=== PATIENT | female | born 1975 | race African-American/Black ===

== ENCOUNTER 2017-11-13 16:59 | Emergency (ER) | payer MEDICAID, SELFPAY ==
[2017-11-13 17:00] VITALS: BP 128/73; PULSE 107; RESP 18; TEMP 36.6; O2SAT 100; BMI 23.9
--- NOTE | 2017-11-13 18:38 | RAD_ITS ---
STUDY: X-RAY - ACUTE ABDOMINAL SERIES REASON FOR EXAM: Female, 42 years old. Hemoptysis last night and this morning. TECHNIQUE: Single view of the chest. Supine, and erect view(s) of the abdomen were obtained. COMPARISON: CT of the abdomen and pelvis dated November 05, 2014. FINDINGS: The lungs are clear and hyperexpanded. Normal size heart. Normal mediastinum and [place]. Normal visualized pulmonary arteries. There is atherosclerotic tortuosity of the aortic arch and descending thoracic aorta. There is a large amount of bowel gas. There is no evidence for dilated bowel. There is no obvious visceromegaly, or mass. A pelvic calcifications are probably phleboliths. There is mild curvature of the thoracic and lumbar spine with convexity towards the right. RAD/Acute Abdomen Inc Chest IMPRESSION: No radiographic evidence of acute cardiopulmonary or intra-abdominal disease. Electronically Signed: Dulce Shell MD at 19:49 EST , Service support ,
--- NOTE | 2017-11-13 18:39 | ED.VISSUMM ---
- ER Visit Summary Date of Service: 11/13/17 Chief Complaint: Vomiting blood History of Present Illness: The patient is a 42 F who is a daily drinker who presents for vomiting blood. Patient states that last night she began vomiting, and initially it was bright red. She vomited multiple times during the night and the vomit became more coffee-ground in appearance. She last vomited 12 hours ago. She endorses diffuse upper back pain. She currently denies any nausea, abdominal pain, fever, acute diarrhea, blood in her stool or any other complaints. She states she has normal daily loose stool in the morning. Denies any medical history. Bilateral tubal ligation. She drinks 3-4 large volume beers daily. Last was just prior to arrival. Physical Examination: Vital signs: afebrile, hemodynamically stable, no hypoxia on room air General: well nourished, well developed, in no distress, odor of alcohol on breath Skin: warm, dry, no rash, no pallor HEENT: normocephalic and atraumatic; PERRL, EOMI, moist mucous membranes no blood noted in the oropharynx, no oropharyngeal lesions Cardiovascular: Tachycardic rate and rhythm without murmurs, no peripheral edema, 2+ pulses all distal extremities Respiratory: No increased work of breathing, lungs are clear to auscultation bilaterally, no rales, rhonchi or wheezing Abdominal: Abdomen is soft, nontender with normoactive bowel sounds, no guarding or rebound, no masses MSK: Moves all extremities, no deformities, normal strength Neuro: Awake and alert, oriented ?4. No facial droop, sensation and motor function intact and symmetric Test Results: Abnormal Lab Results 11/13/17 11/13/17 11/13/17 18:50 18:55 18:55 WBC 4.6 RBC 4.14 L Hgb 13.5 Hct 40.3 MCV 97.3 MCH 32.6 H MCHC 33.5 RDW 12.9 RDW Differential 45.8 H Plt Count 240 MPV 9.8 Immature Gran % (Auto) 0.000 Neut % (Auto) 31.5 L Lymph % (Auto) 51.0 H [place] % (Auto) 10.8 H Eos % (Auto) 5.4 H Baso % (Auto) 1.3 H Absolute Neuts (auto) 1.5 L Absolute Lymphs (auto) 2.35 Total Counted Not Reportable Sodium 142 Potassium 4.0 Chloride 107 Carbon Dioxide 25.0 Anion Gap 10 BUN 3 L Creatinine 0.51 L Estim Creat Clear Calc 153.24 Est GFR (MDRD) Af Amer 171 Est GFR (MDRD) Non-Af 141 BUN/Creatinine Ratio 5.9 L Glucose 81 Calcium 8.5 Total Bilirubin 0.10 L AST 30 ALT 22 Alkaline Phosphatase 91 Total Protein 7.5 Albumin 3.2 Globulin 4.3 H Albumin/Globulin Ratio 0.7 L Lipase 153 Urine Color Urine Clarity Urine pH Ur Specific [place] Urine Protein Urine Glucose (UA) Urine Ketones Urine Occult Blood Urine Nitrite Urine Bilirubin Urine Urobilinogen Ur Leukocyte Esterase Urine RBC Urine WBC Ur Squamous Epith Cells Urine Bacteria Urine Mucus Urine Test Negative Blood Type Antibody Screen 11/13/17 11/13/17 18:55 18:55 WBC RBC Hgb Hct MCV MCH MCHC RDW RDW Differential Plt Count MPV Immature Gran % (Auto) Neut % (Auto) Lymph % (Auto) [place] % (Auto) Eos % (Auto) Baso % (Auto) Absolute Neuts (auto) Absolute Lymphs (auto) Total Counted Sodium Potassium Chloride Carbon Dioxide Anion Gap BUN Creatinine Estim Creat Clear Calc Est GFR (MDRD) Af Amer Est GFR (MDRD) Non-Af BUN/Creatinine Ratio Glucose Calcium Total Bilirubin AST ALT Alkaline Phosphatase Total Protein Albumin Globulin Albumin/Globulin Ratio Lipase Urine Color Yellow Urine Clarity Clear Urine pH 6.0 Ur Specific [place] 1.005 Urine Protein Negative Urine Glucose (UA) Normal Urine Ketones Negative Urine Occult Blood Negative Urine Nitrite Negative Urine Bilirubin Negative Urine Urobilinogen Normal Ur Leukocyte Esterase 500 H Urine RBC 0-5 SEEN Urine WBC 0 SEEN Ur Squamous Epith Cells 0-5 SEEN Urine Bacteria 0 SEEN Urine Mucus 0 SEEN Urine Test Blood Type O POSITIVE Antibody Screen NEGATIVE Emergency Department Course and Treatment: Patient presents for bloody emesis, initially bright red but then becoming coffee ground without any emesis in the last 12 hours. Because patient does drink heavily, this is concerning for possible esophageal varices versus a Deja-Nino tear. Patient has no chest pain that would be concerning for Borhaave syndrome. Workup was performed, and patient had a normal hemoglobin. No leukocytosis. Electrolytes, hepatic function and renal function were within normal limits. negative. Patient was given IV fluids and Protonix upon presentation. Had no episodes of emesis in the emergency department and no nausea. An NG tube was attempted to evaluate for any possible blood remaining in the stomach that might indicate active bleeding. Patient did not tolerate the procedure well and did not wish any further continuation of it. She stated she would return if she had any further bleeding or bloody vomit. She was given Chloraseptic [place] for throat discomfort after the attempted NG tube placement. Patient was discharged home with stable vital signs and no evidence of further hematemesis. Treatment Plan: [] Disposition: [] Impression: Hematemesis, resolved This note was generated with [employer] dictation software. It may contain incorrect words, spelling, and punctuation that were not noted in review of the chart prior to signing ED Disposition - Plan for ED Patient: Disposition: Home or Assisted Living Chief Complaint: GI Bleed Instructions: ED Bleed UGI Stable Prescriptions: Pantoprazole Sodium [Protonix] 40 mg PO DAILY #15 tab Ondansetron HCl [Zofran] 4 mg PO TID PRN #10 tab PRN Reason: Nausea Referrals: Ninoska Walsh MD [Primary Care Provider] - 1-2 Days if not improving Additional Instructions: If you have any further vomiting of blood, come back to the emergency department immediately for another evaluation. Please use the medications as prescribed to help calm your stomach and prevent further bleeding and vomiting. Please do not drink alcohol, as this will make your stomach more irritated and likely to bleed. Please see your doctor within 1-2 days for another evaluation and to discuss treatment of stomach irritation.
[2017-11-13] MEDS: Ondansetron 4 MG/2 ML Vial IV (19:01)
[2017-11-13] MEDS: 0.9% Normal Saline 1,000 ML 1000 ML IV (19:01)
[2017-11-13 19:02] LABS: Bacteria 0 SEEN /hpf (None Seen); Mucous, Urine 0 SEEN /hpf (<or=2+); White Blood Cells 0 SEEN /hpf (0-5)
[2017-11-13 19:04] LABS: Color, Urine Yellow (Yellow); Glucose, Dipstick Normal (Normal); Ketone-Dipstick Negative (Negative); Leukocyte Esterase-Dipstick 500 /ul (Negative); Nitrite-Dipstick Negative (Negative); Occult Blood-Urine Negative /ul (Negative); Protein-Dipstick Negative (Negative); Specific Gravity, Urine 1.005 (1.002-1.030); Urine Bilirubin Dipstick Negative (Negative); Urine Clarity Clear (Clear); Urine Urobilinogen Normal (Normal)
[2017-11-13 19:06] LABS: Absolute Lymphocyte Count 2.35 X10^3/ul (0.83-4.51); Absolute Neutrophil Count 1.5 X10^3/uL (2.0-7.7); Basophil# 0.06 X10^3/uL; Basophil% 1.3 % (0-1); Eosinophil# 0.25 X10^3/uL; Eosinophils% 5.4 % (0-5); Hematocrit 40.3 % (37-47); Hemoglobin 13.5 g/dl (12.0-15.0); Lymphocyte # 2.35 X10^3/ul (4.0); Mean Corp Hgb Conc 33.5 g/gl (32-36); Mean Corpuscular Hgb 32.6 pg (27.0-32.0); Mean Corpuscular Volume 97.3 fL (81-99); Mean Platelet Vol. 9.8 fl (6.2-12.0); Monocyte% 10.8 % (0-10); Neutrophil # 1.45 X10^3/uL (2.7-7.7); Neutrophil % 31.5 % (47-70); POSITIVE COUNT NO; POSITIVE DIFFERENTIAL NO; POSITIVE MORPHOLOGY NO; Platelet Count 240 K/mm3 (150-450); RBC Distribution Width CV 12.9 % (11.6-14.6); RBC Distribution Width SD 45.8 fl (35.1-43.9); Red Blood Count 4.14 M/mm3 (4.2-5.4); White Blood Count 4.6 K/mm3 (4.4-11.0)
[2017-11-13 19:12] LABS: Internal QC Validated? YES +Cl - CLEAR BKGD
[2017-11-13 19:14] LABS: Pregnancy, Urine Negative Negative
[2017-11-13 19:16] LABS: Red Blood Cells-Urine 0-5 SEEN /hpf (0-5); Squamous Epithelial Cells - UA 0-5 SEEN /hpf (5-10)
[2017-11-13 19:22] LABS: ALB/GLOB Ratio 0.7 RATIO (0.9-2.4); AST(SGOT) 30 U/L (15-37); Alanine Aminotransfer ALT/SGPT 22 U/L (13-56); Albumin, Serum 3.2 g/dL (3.2-5.0); Alkaline Phosphatase 91 U/L (45-117); Anion Gap 10 (5-15); BUN 3 mg/dL (7-18); BUN/Creat Ratio 5.9 RATIO (10-20); Calcium,Total 8.5 mg/dL (8.5-10.1); Chloride 107 mmol/L (98-107); Creatinine, Serum 0.51 mg/dL (0.55-1.02); EST Glomerular Filtration Rate 141 mL/min (>60); Est Glom Filt Rate - Afr Amer 171 mL/min (>60); Estimated Creatinine Clearance 153.24 ml/min; Globulin 4.3 g/dL (2.2-4.2); Glucose 81 mg/dL (70-110); Lipase 153 U/L (73-393); Protein, Total 7.5 g/dL (6.4-8.2); Sodium Level 142 mmol/L (136-145)
[2017-11-13 21:17] VITALS: PULSE 78; RESP 17; O2SAT 98
--- NOTE | 2017-11-13 21:35 | ED.DEP ---
ED Disposition - Plan for ED Patient: Disposition: Home or Assisted Living Chief Complaint: GI Bleed Instructions: ED Bleed UGI Stable Prescriptions: Pantoprazole Sodium [Protonix] 40 mg PO DAILY #15 tab Ondansetron HCl [Zofran] 4 mg PO TID PRN #10 tab PRN Reason: Nausea Referrals: Ninoska Walsh MD [Primary Care Provider] - 1-2 Days if not improving Additional Instructions: If you have any further vomiting of blood, come back to the emergency department immediately for another evaluation. Please use the medications as prescribed to help calm your stomach and prevent further bleeding and vomiting. Please do not drink alcohol, as this will make your stomach more irritated and likely to bleed. Please see your doctor within 1-2 days for another evaluation and to discuss treatment of stomach irritation.
--- NOTE | 2017-11-13 22:05 | NURSING ---
NG WAS UNSUCCESSFUL AND WENT INTO THE PT LUNG. PT REFUSED FOR US TO TRY AGAIN PT WANTED TO BE SENT HOME. GAVE RX AND WORK NOTE FOR TODAY AND TOMORROW. UNDERSTANDS D/C INSTRUCTIONS AND FOLLOWING UP WITH DOCTOR.
[2017-11-13 22:06] VITALS: BP 126/87; PULSE 76; RESP 16; O2SAT 98
== END 2017-11-13 22:06 | disposition home or self-care (01) ==
PROVIDERS: Emergency Provider Emergency Medicine; Family Provider Internal Medicine; PCP Internal Medicine
DX: K92.0 Hematemesis (principal); F10.10 Alcohol abuse, uncomplicated; Z72.0 Tobacco use
CPT/HCPCS: 74022; 80053; 81001; 81025; 83690; 85025; 86850; 86900; 96365; 96366; 96375; 99283; J7030; A4216; J2405

== ENCOUNTER 2018-01-10 18:54 | Emergency (ER) | payer MEDICAID, SELFPAY ==
[2018-01-10 18:55] VITALS: BP 135/82; PULSE 98; RESP 16; TEMP 36.8; O2SAT 98; BMI 21.8
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
[2018-01-10 19:38] VITALS: RESP 18
--- NOTE | 2018-01-10 19:39 | NURSING ---
PATIENT REQUESTED AN EYE PATCH TO PROTECT HER EYE. EYE PATCH GIVEN AND APPLIED TO HER LEFT EYE BY THIS NURSE.
== END 2018-01-10 19:38 | disposition home or self-care (01) ==
PROVIDERS: Emergency Provider Emergency Medicine; Family Provider Internal Medicine; PCP Internal Medicine
DX: H11.32 Conjunctival hemorrhage, left eye (principal); Z72.0 Tobacco use
CPT/HCPCS: 99283

== ENCOUNTER 2018-04-29 17:45 | Emergency (ER) | payer MEDICAID, SELFPAY ==
[2018-04-29 17:46] VITALS: BP 127/89; PULSE 93; RESP 16; TEMP 36.7; O2SAT 98; BMI 21.9
--- NOTE | 2018-04-29 18:00 | ED.VISSUMM ---
- ER Visit Summary Date of Service: 04/29/18 Chief Complaint: Rash History of Present Illness: The patient is a 43 F patient has had a rash for 2 days. She states it itches. Spreading upper extremities. She has been using medicated lotion without any relief. She does admit to some alcohol today. Physical Examination: Vitals are reviewed. Skin exam reveals diffuse maculopapular rash. No petechia or purpura. She is intoxicated but answers all questions Test Results: None performed Emergency Department Course and Treatment: Patient will be treated with Kenalog here. I will give her hydrocortisone cream at home. She can use Benadryl for the itching Treatment Plan: [] Disposition: Discharge Impression: Dermatitis This note was generated with [employer] dictation software. It may contain incorrect words, spelling, and punctuation that were not noted in review of the chart prior to signing ED Disposition - Plan for ED Patient: Chief Complaint: Rash Referrals: Ninoska Walsh MD [Primary Care Provider] -
[2018-04-29] MEDS: Triamcinolone Acetonide 40 MG/ML Vial IM (18:03)
--- NOTE | 2018-04-29 18:03 | ED.DCSUM_ITS ---
- ER Visit Summary Date of Service: 04/29/18 Chief Complaint: Rash History of Present Illness: The patient is a 43 F patient has had a rash for 2 days. She states it itches. Spreading upper extremities. She has been using medicated lotion without any relief. She does admit to some alcohol today. Physical Examination: Vitals are reviewed. Skin exam reveals diffuse maculopapular rash. No petechia or purpura. She is intoxicated but answers all questions Test Results: None performed Emergency Department Course and Treatment: Patient will be treated with Kenalog here. I will give her hydrocortisone cream at home. She can use Benadryl for the itching Treatment Plan: [] Disposition: Discharge Impression: Dermatitis This note was generated with [employer] dictation software. It may contain incorrect words, spelling, and punctuation that were not noted in review of the chart prior to signing ED Disposition - Plan for ED Patient: Chief Complaint: Rash Referrals: Ninoska Walsh MD [Primary Care Provider] -
--- NOTE | 2018-04-29 18:03 | ED.DEP ---
ED Disposition - Plan for ED Patient: Disposition: Home or Assisted Living Chief Complaint: Rash Prescriptions: Hydrocortisone 1% Crm [Hytone] 1 applic TOPICAL BID #1 tube Referrals: Ninoska Walsh MD [Primary Care Provider] -
== END 2018-04-29 18:22 | disposition home or self-care (01) ==
LOC: ED 18:21
PROVIDERS: Emergency Provider Emergency Medicine; Family Provider Internal Medicine; PCP Internal Medicine
DX: L30.9 Dermatitis, unspecified (principal); Z72.0 Tobacco use
CPT/HCPCS: 96372; 99284

== ENCOUNTER 2018-06-01 16:55 | Observation (INO) | payer MEDICAID, SELFPAY ==
[2018-06-01 16:56] VITALS: BP 122/88; PULSE 102; RESP 14; TEMP 36.3; O2SAT 98; BMI 24.1
--- NOTE | 2018-06-01 17:10 | ED.RN ---
PT REPORTS LAST DRINK WAS 1400, I HAD 3 TALL BOYS. NOW I AM FEELING JITTERY AND TREMORING. PT HAS BEEN DOING THIS SINCE SHE WAS 20 YRS OLD. REPORTS THROBBING VERAS AND NAUSEA.
[2018-06-01 18:10] LABS: Absolute Lymphocyte Count 1.13 X10^3/ul (0.83-4.51); Absolute Neutrophil Count 3.5 X10^3/uL (2.0-7.7); Basophil# 0.04 X10^3/uL; Basophil% 0.8 % (0-1); Eosinophil# 0.07 X10^3/uL; Eosinophils% 1.4 % (0-5); Hematocrit 39.5 % (37-47); Hemoglobin 13.2 g/dl (12.0-15.0); Lymphocyte # 1.13 X10^3/ul (4.0); Lymphocyte % 22.2 % (19-41); Mean Corp Hgb Conc 33.4 g/gl (32-36); Mean Corpuscular Hgb 32.2 pg (27.0-32.0); Mean Corpuscular Volume 96.3 fL (81-99); Mean Platelet Vol. 9.8 fl (6.2-12.0); Monocyte# 0.38 X10^3/uL; Monocyte% 7.5 % (0-10); Neutrophil # 3.46 X10^3/uL (2.7-7.7); Neutrophil % 68.1 % (47-70); Platelet Count 210 K/mm3 (150-450); RBC Distribution Width CV 13.7 % (11.6-14.6); White Blood Count 5.1 K/mm3 (4.4-11.0)
[2018-06-01 18:15] LABS: POSITIVE COUNT NO; POSITIVE DIFFERENTIAL NO; POSITIVE MORPHOLOGY NO
[2018-06-01 18:16] VITALS: BP 117/82; PULSE 92; RESP 18; O2SAT 99
--- NOTE | 2018-06-01 18:17 | ED.RN ---
PT REPORTS DR. MARYJO VERAS INFORMED AWAITING FURTHER ORDERS.
[2018-06-01 18:30] LABS: ALB/GLOB Ratio 0.7 RATIO (0.9-2.4); AST(SGOT) 41 U/L (15-37); Alanine Aminotransfer ALT/SGPT 25 U/L (13-56); Albumin, Serum 3.2 g/dL (3.2-5.0); Alkaline Phosphatase 125 U/L (45-117); Amphetamine Urine VISTA NEGATIVE (<1000 ng/mL); Anion Gap 12 (5-15); BUN 2 mg/dL (7-18); Barbiturate Urine VISTA NEGATIVE (< 200 ng/mL); Benzodiazepine Urine VISTA NEGATIVE (< 200 ng/mL); Chloride 102 mmol/L (98-107); Cocaine Urine VISTA NEGATIVE (< 300 ng/mL); Creatinine, Serum 0.51 mg/dL (0.55-1.02); EST Glomerular Filtration Rate 143 mL/min (>60); Ecstacy Urine VISTA NEGATIVE (< 500 ng/mL); Est Glom Filt Rate - Afr Amer 172 mL/min (>60); Estimated Creatinine Clearance 151.71 ml/min; Globulin 4.9 g/dL (2.2-4.2); Glucose 74 mg/dL (74-106); Methadone Urine VISTA NEGATIVE (< 300 ng/mL); PCP Urine VISTA NEGATIVE (< 25 ng/mL); Potassium 3.8 mmol/L (3.5-5.1); Protein, Total 8.1 g/dL (6.4-8.2); Sodium Level 136 mmol/L (136-145); THC Urine VISTA NEGATIVE (< 50 ng/mL); Vista UDS pH Range 6
[2018-06-01] MEDS: Acetaminophen 500 MG Tablet 1000 MG PO (18:35)
[2018-06-01 18:38] LABS: Pregnancy, Serum, hCG Quali. NEGATIVE Negative (0-9 Nonpreg)
--- NOTE | 2018-06-01 19:03 | PCM.HP.STD ---
Problem List (1) Polysubstance dependence Status: Acute (2) Alcohol withdrawal Status: Acute History of Present Illness Date of Admission: 06/01/18 Chief Complaint: Alcohol withdrawal ?1 day The patient is a 43 year old F with a significant history of bipolar disorder and alcoholism and tobacco abuse who presents with a 1 day history of alcohol withdrawal symptoms of shakiness, headache, auditory hallucination, cold sweats, feeling of heart racing, and photophobia. At emergency department her CIWA score was 21. She drinks 3-4 of 24 hours cans of beer per day. She denies any homicidal or suicidal intent. Patient started drinking at age 20 and her drinking habits are worsened when she was 27 years old. Past Medical History Past Medical History (Chronic Problems): Chronic Problems Bipolar disorder (Chronic) Allergies Penicillins Allergy (Verified 06/01/18 16:59) Hives Home Medications: Ambulatory Orders Medication Instructions Recorded NK [NK] 06/01/18 Surgical History: appendectomy, - - Tonsillectomy, 2 knee surgeries on the left; and one knee surgery on the right Psychiatric History: Bipolar Lives: With Family Smoking Status: Current every day smoker Tobacco Use: Non-smoker Alcohol: Heavy Drugs: None Review of Systems Constitutional: Denies: Chills, Fever, Weight Change HEENT: Reports: Head Aches. Denies: Sinus Congestion, Sinus Drainage Cardiovascular: Reports: Palpitations. Denies: Chest Pain Respiratory: Denies: Cough, Shortness of breath at rest, Sputum production Gastrointestinal: Denies: Abdominal Pain, Vomiting Genitourinary: Denies: Dysuria Musculoskeletal: Denies: Joint Pain, Joint Tenderness Skin: Denies: Rash, Wounds Neurological: Denies: Numbness, Tingling, Focal weakness Psychiatric: Denies: Homicidal Ideations, Suicidal Ideations Hematologic/ Lymphatic: Denies: Easy Bruising, Easy Bleeding VTE Information - Inpt Only VTE Present on Admission: No VTE Mechan Device Prophylaxis: None VTE Pharm Prophylaxis ordered?: No Reason prophylaxis not ordered:: Treatment Not Indicated - Low risk Patient Problems: Active and Suspected Problems Polysubstance dependence (Acute) Alcohol withdrawal (Acute) - Physical Exam General: Alert, Oriented x3, Cooperative HEENT: Atraumatic, PERRLA, EOMI, Normocephalic Neck: Supple, No JVD, Negative Carotid Bruits Lungs: Clear to auscultation, Normal air movement Cardiovascular: Regular rate, No murmurs Abdomen: Bowel Sounds Present, Soft, Non Tender Extremities: No edema, Capillary Refill Less than 3 Seconds Skin: No rashes, No breakdown Musculoskeletal: No Tenderness to Palpation of Joints or Extremities Neurological: Cranial nerves II-XII grossly intact Psych/Mental Status: Normal Affect, Appropriate Vital Signs Temp Pulse Resp BP Pulse Ox 97.4 F L 92 18 117/82 H 99 06/01/18 16:56 06/01/18 18:16 06/01/18 18:16 06/01/18 18:16 06/01/18 18:16 Oxygen Delivery Method Room Air Weight: 74.1 kg Body Mass Index (BMI) 24.1 Laboratory Tests Past 24 Hrs 06/01/18 06/01/18 06/01/18 17:55 17:55 17:55 WBC 5.1 RBC 4.10 L Hgb 13.2 Hct 39.5 MCV 96.3 MCH 32.2 H MCHC 33.4 RDW 13.7 RDW Differential 48.0 H Plt Count 210 MPV 9.8 Immature Gran % (Auto) 0.000 Neut % (Auto) 68.1 Lymph % (Auto) 22.2 [place] % (Auto) 7.5 Eos % (Auto) 1.4 Baso % (Auto) 0.8 Absolute Neuts (auto) 3.5 Absolute Lymphs (auto) 1.13 Total Counted Not Reportable Sodium 136 Potassium 3.8 Chloride 102 Carbon Dioxide 22.0 Anion Gap 12 BUN 2 L Creatinine 0.51 L Estim Creat Clear Calc 151.71 Est GFR (MDRD) Af Amer 172 Est GFR (MDRD) Non-Af 143 BUN/Creatinine Ratio 4.0 L Glucose 74 Calcium 9.0 Total Bilirubin 0.30 AST 41 H ALT 25 Alkaline Phosphatase 125 H Total Protein 8.1 Albumin 3.2 Globulin 4.9 H Albumin/Globulin Ratio 0.7 L Serum , Qual Urine Opiates Screen Urine Methadone Screen Ur Barbiturates Screen Ur Phencyclidine Scrn Ur Amphetamines Screen U Methamphetamin-MDMA U Benzodiazepines Scrn Urine Cocaine Screen U Cannabinoids Screen Ur Drug Screen Comment Ethyl Alcohol 131.0 06/01/18 06/01/18 17:55 17:55 WBC RBC Hgb Hct MCV MCH MCHC RDW RDW Differential Plt Count MPV Immature Gran % (Auto) Neut % (Auto) Lymph % (Auto) [place] % (Auto) Eos % (Auto) Baso % (Auto) Absolute Neuts (auto) Absolute Lymphs (auto) Total Counted Sodium Potassium Chloride Carbon Dioxide Anion Gap BUN Creatinine Estim Creat Clear Calc Est GFR (MDRD) Af Amer Est GFR (MDRD) Non-Af BUN/Creatinine Ratio Glucose Calcium Total Bilirubin AST ALT Alkaline Phosphatase Total Protein Albumin Globulin Albumin/Globulin Ratio Serum , Qual NEGATIVE Urine Opiates Screen NEGATIVE Urine Methadone Screen NEGATIVE Ur Barbiturates Screen NEGATIVE Ur Phencyclidine Scrn NEGATIVE Ur Amphetamines Screen NEGATIVE U Methamphetamin-MDMA NEGATIVE U Benzodiazepines Scrn NEGATIVE Urine Cocaine Screen NEGATIVE U Cannabinoids Screen NEGATIVE Ur Drug Screen Comment Ethyl Alcohol Assessment/Plan All Active Problems Polysubstance dependence (Acute) Alcohol withdrawal (Acute) The patient is a 43 year old F with a significant history of bipolar disorder and alcoholism and tobacco abuse who presents with alcohol withdrawal. Alcohol withdrawal New Vision protocol with Librium taper Multivitamins, thiamine, methocarbamol and hydroxyzine ordered. As needed Ativan for seizures. Counseled Tobacco abuse nicotine patch ordered Bipolar Not on any home medication Clinical monitoring. DVT prophylaxis Subcutaneous heparin. Code Visit Inpatient E&M: 66712 Init Hosp L2
--- NOTE | 2018-06-01 19:22 | ED.VISSUMM ---
- ER Visit Summary Date of Service: 06/01/18 Chief Complaint: [Request for alcohol detox] History of Present Illness: The patient is a 43 F [presents the emergency department with complaint of requesting alcohol detox. Patient states that she last drank alcohol between 10 AM and 2 PM and had 3 tall beers. Patient states that normally she mostly drinks beer. Patient feeling jittery and complains of a headache. Patient feels sweaty at times. She denies any chest pain or shortness of breath. Patient does admit to some photophobia and some auditory hallucinations at times.] Physical Examination: [HEENT-PERRLA, EOMI. Cranial nerves II through XII grossly intact. TMs clear. Mucous membranes moist. No adenopathy. Cardiovascular-regular rate and rhythm without murmur or ectopy Lungs-clear to auscultation, chest wall stable without crepitus or subcu emphysema Abdomen-normoactive bowel sounds, soft, nontender, no rebound or rigidity, no peritoneal signs. Neuro bhdg-[id number]-foel and heel shah testing within normal limits, negative Romberg, negative pronator, fundi benign Extremities-intact ?4, normal range of motion, normal pulses, atraumatic]. Patient does have a fine tremor in her hands. Test Results: [CBC with differential was unremarkable. Chemistries unremarkable. LFTs showed an alk phos 125, ALT 25, AST 40 1M hCG was negative. Alcohol was 131. Toxicology screen was negative. Patient's score on the CI WAR was 21] Emergency Department Course and Treatment: [Patient case discussed with hospitalist will evaluate patient for admission]. Patient was given Librium 25 mg p.o. Treatment Plan: [Admit for alcohol detox] Disposition: [Admit] Impression: [Alcohol abuse Alcohol withdrawal] This note was generated with [employer] dictation software. It may contain incorrect words, spelling, and punctuation that were not noted in review of the chart prior to signing ED Disposition - Plan for ED Patient: Chief Complaint: Substance Abuse Referrals: Ninoska Walsh MD [Primary Care Provider] -
[2018-06-01 19:29] VITALS: BMI 24.1
[2018-06-01] MEDS: chlordiazePOXIDE 25 MG Capsule PO (19:44)
[2018-06-01 20:11] VITALS: BMI 23.9
[2018-06-01 20:12] VITALS: BP 127/87; PULSE 71; RESP 16; TEMP 37.1; O2SAT 98
[2018-06-01 20:46] VITALS: BP 111/80; PULSE 80; RESP 18; TEMP 36.9
[2018-06-01 20:50] VITALS: O2SAT 97
[2018-06-02] VITALS (10 sets, daily range): BP systolic 115–133; BP diastolic 87–93; PULSE 78–112; RESP 14–18; TEMP 36.2–37.1; O2SAT 97–100
[2018-06-02] MEDS: chlordiazePOXIDE 25 MG Capsule PO ×4 (01:39→22:26)
[2018-06-02] MEDS: 0.9% NaCl Peripheral Flush Adult/Peds IV (01:39)
[2018-06-02] MEDS: guaiFENesin 10 ML UDC (200MG/10ML) PO (02:42)
[2018-06-02] MEDS: Acetaminophen 325 MG Tablet 650 MG PO (05:53)
[2018-06-02 06:15] LABS: Anion Gap 8 (5-15); BUN 4 mg/dL (7-18); BUN/Creat Ratio 8.3 RATIO (10-20); Calcium,Total 8.8 mg/dL (8.5-10.1); Chloride 103 mmol/L (98-107); Creatinine, Serum 0.48 mg/dL (0.55-1.02); EST Glomerular Filtration Rate 151 mL/min (>60); Est Glom Filt Rate - Afr Amer 183 mL/min (>60); Estimated Creatinine Clearance 161.19 ml/min; Glucose 75 mg/dL (74-106); Potassium 3.8 mmol/L (3.5-5.1); Sodium Level 137 mmol/L (136-145)
--- NOTE | 2018-06-02 07:17 | PCM.PN.HOSP ---
Patient Problems: Active and Suspected Problems Polysubstance dependence (Acute) Alcohol withdrawal (Acute) Subjective: Patient with no acute events overnight per self and per nursing report. She states feeling improved less tremulous but states it is still mild. She notes still some mild nausea but will try to eat some breakfast this morning and denies any emesis associated. Patient denies fevers, chills, nausea, emesis, abdominal pain, chest pain or dyspnea. Objective: Physical Examination: General: awake, alert, oriented x 3 and cooperative, seated upright in bed in no apparent distress. Skin: normal color, turgor, no icterus, cyanosis. HEENT: AT/NC, EOMI, PERRLA, mildly dry MM. Lungs: CTA bilaterally, moderate effort, mild decrease BL bases, no rales, ronchi or wheezing. Heart: Regular rate and rhythm; no gallop, rub audible. Abdomen: soft, NTTP, ND, normal BS, + HM. Extremities: no cyanosis, clubbing, or edema. Neurological: patient awake, alert, oriented x 3; cognitive function intact; pupils equally reactive to light and accomodation; cranial nerves II-XII grossly normal, moving all 4 extremities, no focal deficits, strength mildly to moderately globally decreased secondary to acute presentation. Psychiatric: affect appears fatigued, no acute evidence of depressive or anxiety feelings. Vitals/I&O's: Vital Signs Temp Pulse Resp BP Pulse Ox 97.2 F L 81 16 117/89 H 97 06/02/18 05:49 06/02/18 05:49 06/02/18 05:49 06/02/18 05:49 06/02/18 05:49 Oxygen Delivery Method Room Air Weight: 162 lb 4.163 oz Body Mass Index (BMI) 23.9 Intake and Output for Last 24 Hours 05/31/18 06/01/18 06/02/18 23:59 23:59 23:59 Intake Total 360 / 360 Balance 360 / 360 Laboratory Results 06/02/18 05:30: Sodium 137, Potassium 3.8, Chloride 103, Carbon Dioxide 26.0, Anion Gap 8, BUN 4 L, Creatinine 0.48 L, Estim Creat Clear Calc 161.19, Est GFR (MDRD) Af Amer 183, Est GFR (MDRD) Non-Af 151, BUN/Creatinine Ratio 8.3 L, Glucose 75, Calcium 8.8 Current Medications Acetaminophen (Tylenol) 650 mg PO Q6H PRN PRN PRN Reason: Mild Pain (1-3)/Temp > 100.7 F Last Admin: 06/02/18 05:53 Dose: 650 mg Bisacodyl (Dulcolax) 5 mg PO DAILY PRN PRN PRN Reason: Constipation Chlordiazepoxide (Librium) 50 mg PO Q6H MARANDA PRN Reason: Taper Stop: 06/04/18 21:44 Last Admin: 06/02/18 01:39 Dose: 50 mg Folic Acid (Folic Acid) 1 mg PO [facility]ILY[facility] Guaifenesin (Robitussin) 10 ml PO Q4H PRN PRN PRN Reason: COUGH Last Admin: 06/02/18 02:42 Dose: 10 ml Hydroxyzine Pamoate (Vistaril Pamoate Capsule) 50 mg PO Q6H PRN PRN PRN Reason: Mild Anxiety (score 1/3) Thiamine HCl 200 mg/ Sodium (Chloride) 52 mls @ 200 mls/hr IV DAILY MARANDA Sodium Chloride () 250 mls @ 15 mls/hr IV .[id number] PRN PRN Reason: SALINE FLUSH Lorazepam (Ativan) 2 mg IV X1 PRN PRN Reason: Seizure Magnesium Hydroxide (Milk Of Magnesia) 30 ml PO DAILY PRN PRN PRN Reason: Constipation Methocarbamol (Methocarbamol) 750 mg PO Q6H PRN PRN PRN Reason: Muscle Aches Multivitamins (Multivitamin) 1 tablet PO DAILYCM [facility] Ondansetron HCl (Zofran) 4 mg IV Q6H PRN PRN PRN Reason: NAUSEA Sodium Chloride () 5 - 30 ml IV UD PRN PRN Reason: SALINE FLUSH Last Admin: 06/02/18 01:39 Dose: 10 ml Medical Necessity - Tobacco Use Smoking Status: Current every day smoker Tobacco Use: Non-smoker Assessment/Plan All Active Problems Polysubstance dependence (Acute) Alcohol withdrawal (Acute) The patient is a 43 y/o F w/ PMHx: EtOH Abuse, Tobacco Use, Untreated Bipolar Disorder who presents to the [facility] ED on 06/01/18 with onset tremors, hallucinations, diaphoresis, palpitations x 24 hours with last EtOH intake the day prior. (1) Acute EtOH Withdrawal: Admitted to [place], routine labs obtained, EtOH level 131, initiated and continued on [facility] service protocol with taper course of librium, as needed Seroquel, Catapres, Bentyl, Vistaril, IV fluids, IV antiemetics, Tylenol as needed for pain. Once patient clinically improved and completion of taper nearing will plan [facility] assistance for transition to next level of rehabilitation care. Mag, phos pending. Maintain on CIWA protocol. (2) Tobacco Abuse: Encouraged cessation, inpatient consultation per RT, NR if desired. (3) Bipolar Disorder: Not on treatment, would benefit from initiation of antipsychotic and antidepressant therapy, encourage follow-up upon discharge. (4) Elevated LFTs: Secondary to EtOH Abuse, admission AST/ALT 41/25, encourage PCP follow-up, trending. (5) DVT Prophylaxis: TIMBO, low risk, ambulation. Code Visit Inpatient E&M: 60758 Subs Hosp L2
[2018-06-02 07:44] LABS: Magnesium 1.9 mg/dL (1.6-2.6)
[2018-06-02] MEDS: Folic Acid 1 MG Tablet PO (07:59)
[2018-06-02] MEDS: Multivitamins,Therapeutic Tablet 1 TABLET PO (07:59)
[2018-06-02] MEDS: Thiamine Hydrochloride 100 MG Tablet PO (10:06)
[2018-06-02] MEDS: Loperamide 2 MG Capsule PO (12:02)
--- NOTE | 2018-06-02 15:36 | CHAPLAIN ---
Type of Pastoral Visit _x__ Initial Visit ___ Follow-up Visit ___ On-call Visit ___ General Patient Visit ___ Spiritual Assessment ___ Family Conference ___ Bereavement ___ Rapid Response ___ Code Blue ___ Other (describe below) Pastoral Care Referral From _x__ Patient ___ Family ___ Nurse ___ Physician ___ Tool Maintenance Worker ___ Speech Language Specialist ___ Other (describe below) Sacrament/Intervention _x__ Active listening ___ Anointing ___ Lutheran ___ Bereavement ___ Communion ___ Stephany exploration ___ _x__ Life review _x__ Prayer ___ Reconciliation ___ Sacrament of Sick ___ Supportive presence ___ Wedding ___ Other (describe below) Pastoral Comments
[2018-06-02] MEDS: traZODone 50 MG Tablet PO (22:26)
[2018-06-02] MEDS: Ibuprofen 600 MG Tablet PO (22:46)
[2018-06-03] VITALS (7 sets, daily range): BP systolic 120–129; BP diastolic 82–101; PULSE 77–95; RESP 14–18; TEMP 36.4–37; O2SAT 93–99
[2018-06-03] MEDS: chlordiazePOXIDE 25 MG Capsule PO ×3 (05:28→21:56)
--- NOTE | 2018-06-03 06:48 | PCM.PN.HOSP ---
Patient Problems: Active and Suspected Problems Polysubstance dependence (Acute) Alcohol withdrawal (Acute) Subjective: Patient with no acute events overnight per self and per nursing report. She states tremors have nearly subsided. She is eager for continued therapy with plans discharge likely in a.m. She states her son is starting school and she is to help him prepare. She notes being very determined to remain sober. Patient denies fevers, chills, nausea, emesis, abdominal pain, chest pain or dyspnea. Objective: Physical Examination: General: awake, alert, oriented x 3 and cooperative, seated upright in bed in no apparent distress. Skin: normal color, turgor, no icterus, cyanosis. HEENT: AT/NC, EOMI, PERRLA, mildly dry MM. Lungs: CTA bilaterally, moderate effort, mild decrease BL bases, no rales, ronchi or wheezing. Heart: Regular rate and rhythm; no gallop, rub audible. Abdomen: soft, NTTP, ND, normal BS. Extremities: no cyanosis, clubbing, or edema. Neurological: patient awake, alert, oriented x 3; cognitive function intact; pupils equally reactive to light and accomodation; cranial nerves II-XII grossly normal, moving all 4 extremities, no focal deficits, strength improved, preserved. Psychiatric: affect appears fatigued, no acute evidence of depressive or anxiety feelings. Vitals/I&O's: Vital Signs Temp Pulse Resp BP Pulse Ox 97.6 F L 77 16 123/82 H 97 06/03/18 02:00 06/03/18 02:00 06/03/18 02:00 06/03/18 02:00 06/03/18 02:00 Oxygen Delivery Method Room Air Weight: 162 lb 4.163 oz Body Mass Index (BMI) 23.9 Intake and Output for Last 24 Hours 06/01/18 06/02/18 06/03/18 23:59 23:59 23:59 Intake Total 2360 / 2360 800 / 800 Balance 2360 / 2360 800 / 800 Laboratory Results 06/02/18 05:30: Phosphorus 4.0, Magnesium 1.9 Current Medications Acetaminophen (Tylenol) 650 mg PO Q6H PRN PRN PRN Reason: Mild Pain (1-3)/Temp > 100.7 F Last Admin: 06/02/18 05:53 Dose: 650 mg Al Hydroxide/Mg Hydroxide (Mylanta Ii) 30 ml PO Q6H PRN PRN PRN Reason: dyspesia Bisacodyl (Dulcolax) 5 mg PO DAILY PRN PRN PRN Reason: Constipation Bisacodyl (Dulcolax) 10 mg RECTAL DAILY PRN PRN Reason: Constipation Chlordiazepoxide (Librium) 50 mg PO Q8H MARANDA PRN Reason: Taper Stop: 06/04/18 21:44 Last Admin: 06/03/18 05:28 Dose: 50 mg Dicyclomine HCl (Bentyl) 20 mg PO Q6H PRN PRN PRN Reason: abdominal discomfort [facility] Last Admin: 06/02/18 07:59 Dose: 1 mg Guaifenesin (Robitussin) 10 ml PO Q4H PRN PRN PRN Reason: COUGH Last Admin: 06/02/18 02:42 Dose: 10 ml Hydroxyzine Pamoate (Vistaril Pamoate Capsule) 50 mg PO Q6H PRN PRN PRN Reason: Mild Anxiety (score 1/3) Sodium Chloride () 250 mls @ 15 mls/hr IV .[id number] PRN PRN Reason: SALINE FLUSH Ibuprofen (Motrin) 600 mg PO Q8H PRN PRN PRN Reason: Mild-Moderate Pain (1-5/10) Last Admin: 06/02/18 22:46 Dose: 600 mg Loperamide HCl (Imodium) 2 - 4 mg PO UD PRN PRN Reason: LOOSE STOOLS Last Admin: 06/02/18 12:02 Dose: 4 mg Lorazepam (Ativan) 2 mg IV X1 PRN PRN Reason: Seizure Magnesium Hydroxide (Milk Of Magnesia) 30 ml PO DAILY PRN PRN PRN Reason: Constipation Methocarbamol (Methocarbamol) 750 mg PO Q6H PRN PRN PRN Reason: Muscle Aches [facility] Last Admin: 06/02/18 07:59 Dose: 1 tablet Nicotine (Nicoderm Cq (Pbkc)) 21 mg TRANSDERM. DAILY [facility] Last Admin: 06/02/18 11:58 Dose: 21 mg Nicotine Polacrilex (Rugby Nicotine (Bkc)) 2 mg PO Q2H PRN PRN PRN Reason: breakthrough nicotine craving Ondansetron HCl (Zofran) 4 mg IV Q6H PRN PRN PRN Reason: NAUSEA Ondansetron HCl (Zofran Odt) 4 mg PO Q6H PRN PRN PRN Reason: NAUSEA Senna (Senokot) 1 tablet PO QHS PRN PRN PRN Reason: Constipation Sodium Chloride () 5 - 30 ml IV UD PRN PRN Reason: SALINE FLUSH Last Admin: 06/02/18 01:39 Dose: 10 ml Thiamine HCl (Vitamin B1) 100 mg PO DAILYCM [facility] Last Admin: 06/02/18 10:06 Dose: 100 mg Trazodone HCl (Desyrel) 50 mg PO QHS [facility] Last Admin: 06/02/18 22:26 Dose: 50 mg Medical Necessity - Tobacco Use Smoking Status: Current every day smoker Tobacco Use: Non-smoker Assessment/Plan All Active Problems Polysubstance dependence (Acute) Alcohol withdrawal (Acute) The patient is a 43 y/o F w/ PMHx: EtOH Abuse, Tobacco Use, Untreated Bipolar Disorder who presents to the [facility] ED on 06/01/18 with onset tremors, hallucinations, diaphoresis, palpitations x 24 hours with last EtOH intake the day prior. (1) Acute EtOH Withdrawal: Admitted to [place], routine labs obtained, admission EtOH level 131, initiated and continued on [facility] service protocol with taper course of librium, as needed Seroquel, Catapres, Bentyl, Vistaril, IV fluids, IV antiemetics, Tylenol as needed for pain. Once patient clinically improved and completion of taper nearing will plan [facility] assistance for transition to next level of rehabilitation care. Mag, phos normal levels. Maintain on CIWA protocol. Planned discharge to home 06/04/18. (2) Tobacco Abuse: Encouraged cessation, inpatient consultation per RT, NR if desired. (3) Bipolar Disorder: Not on treatment, would benefit from initiation of antipsychotic and antidepressant therapy, encourage follow-up upon discharge. (4) Elevated LFTs: Secondary to EtOH Abuse, admission AST/ALT 41/25, encourage PCP follow-up, trending. (5) DVT Prophylaxis: TIMBO, low risk, ambulation. Code Visit Inpatient E&M: 91702 Subs Hosp L2
[2018-06-03] MEDS: Multivitamins,Therapeutic Tablet 1 TABLET PO (08:58)
[2018-06-03] MEDS: Thiamine Hydrochloride 100 MG Tablet PO (08:58)
[2018-06-03] MEDS: Folic Acid 1 MG Tablet PO (08:58)
[2018-06-03] MEDS: Loperamide 2 MG Capsule PO (13:28)
[2018-06-03] MEDS: Ibuprofen 600 MG Tablet PO (20:58)
[2018-06-03] MEDS: traZODone 50 MG Tablet PO (21:56)
[2018-06-04 05:33] VITALS: BP 118/81; PULSE 80; RESP 16; TEMP 36.5
--- NOTE | 2018-06-04 06:46 | PCM.DC ---
- Discharge Diagnoses Current Active Problems: Current Active and Chronic Problems (1) Acute EtOH Withdrawal (2) Tobacco Abuse (3) Bipolar Disorder (4) Elevated LFTs You will use the following diet at home:: Regular Your food should be the consistency of: Regular Your liquids should be the consistency of: Regular/Thin Discharge Activity: Return to Normal Activity Call your doctor if you observe: Fever of 101 or Higher, Inability to urinate, Inability to have a bowel movement, Shortness of breath, Dizziness, Fainting spells, Chest pain, Uncontrolled pain Instructions: Understanding Alcoholism, Alcoholism: Myths and Facts, The Impact of Alcoholism, Alcoholism: Getting Help, Alcohol Addiction, Signs of Addiction: Social Use, Why Do You Smoke?, Planning to Quit Smoking, Getting Support for Quitting Smoking, Coping with Smoking Withdrawal Additional Instructions: Please continue multivitamin w/ minerals for the duration of the script. Please have repeat liver function testing with your primary care function in the future to assess improvement as they were mildly elevated likely secondary to your alcohol abuse. Allergies/Adverse Reactions: Allergies Penicillins Allergy (Verified 06/01/18 16:59) Hives Medications to take at Discharge Multivit with Min #53/FA/K/Q10 [Dekas Plus Softgel] 1 ea PO DAILY #30 cap 06/04/18 Nicotine [Nicoderm Cq] 21 mg TRANSDERM. DAILY #14 patch 06/04/18 The following prescriptions were given: Multivit with Min #53/FA/K/Q10 [Dekas Plus Softgel] 1 ea PO DAILY #30 cap Nicotine [Nicoderm Cq] 21 mg TRANSDERM. DAILY #14 patch Primary Care Physician: Ninoska Walsh MD [Primary Care Provider] - Please follow up with your Primary Care Physician in: Follow-up within 3-5 days to review admission. Test Results: Test results from this visit will be discussed in further detail at your follow-up appointment, if applicable. Please Follow Up With: [facility] Plan When: Please follow with [facility] plan already in place. Proposed Discharge Date: 06/04/18
--- NOTE | 2018-06-04 07:02 | PCM.DC.SUM ---
Discharge Date and Diagnosis - Problem List Patient Problems: Active and Suspected Problems Polysubstance dependence (Acute) Alcohol withdrawal (Acute) Date of Admission: 06/01/18 Date of Discharge: 06/04/18 - Primary Discharge Diagnosis Active and Suspected Problems (1) Acute EtOH Withdrawal (2) Tobacco Abuse (3) Bipolar Disorder (4) Elevated LFTs - Secondary Discharge Diagnosis Chronic Problems Bipolar disorder (Chronic) Hospital Course and Treatment Operations: None Procedures: None Summary of Care Provided: The patient is a 43 y/o F w/ PMHx: EtOH Abuse, Tobacco Use, Untreated Bipolar Disorder who presented to the [facility] ED on 06/01/18 with onset tremors, hallucinations, diaphoresis, palpitations x 24 hours with last EtOH intake the day prior. Admitted to [place], routine labs obtained, admission EtOH level 131, initiated and continued on [facility] service protocol with taper course of librium, as needed Seroquel, Catapres, Bentyl, Vistaril, IV fluids, IV antiemetics, Tylenol as needed for pain. Once patient clinically improved and completion of taper nearing will plan [facility] assistance for transition to next level of rehabilitation care. Mag, phos normal levels. Maintained on CIWA protocol. Encouraged tobacco cessation and lengthy discussion to encourage consideration of NR prior to discharge undertaken w/ inpatient consultation per RT, NR rx given upon discharge. Patient also given PNV upon discharge. Encourage follow-up with PCP for initiation of antipsychotic and antidepressant therapy for appropriate treatment of her bipolar disorder. During admission noted mildly elevated LFTs AST/ALT 41/25, encouraged PCP follow-up. DAY OF DISCHARGE PROGRESS NOTE: Subjective: Patient without acute event overnight per self and nursing report. She notes slept well with trazodone administration. She denies any further tremor or withdrawal symptoms. Patient denies fever, chills, nausea, emesis, abdominal pain, chest pain or dyspnea. Patient agreeable to discharge to next level of care in [facility] Plan. Patient will be discharged with follow-up with primary care physician within 3-5 days. Objective: T 97.7, heart rate 80, BP 118/81, respiratory rate 18, 99% on room air. Physical Examination: General: awake, alert, oriented x 3 and cooperative, seated upright in bed in no apparent distress. Skin: normal color, turgor, no icterus, cyanosis. HEENT: AT/NC, EOMI, PERRLA, mildly dry MM. Lungs: CTA bilaterally, moderate effort, mild decrease BL bases, no rales, ronchi or wheezing. Heart: Regular rate and rhythm; no gallop, rub audible. Abdomen: soft, NTTP, ND, normal BS. Extremities: no cyanosis, clubbing, or edema. Neurological: patient awake, alert, oriented x 3; cognitive function intact; pupils equally reactive to light and accomodation; cranial nerves II-XII grossly normal, moving all 4 extremities, no focal deficits, strength improved, preserved. Psychiatric: affect appears fatigued, no acute evidence of depressive or anxiety feelings. Assessment and Plan: Please see hospital summary above. Discharge Activity: Return to Normal Activity Call your doctor if you observe: Fever of 101 or Higher, Inability to urinate, Inability to have a bowel movement, Shortness of breath, Dizziness, Fainting spells, Chest pain, Uncontrolled pain Home Medications: Medications to take at Discharge Multivit with Min #53/FA/K/Q10 [Dekas Plus Softgel] 1 ea PO DAILY #30 cap 06/04/18 Nicotine [Nicoderm Cq] 21 mg TRANSDERM. DAILY #14 patch 06/04/18 Following Prescrptions Were Given to Patient: Multivit with Min #53/FA/K/Q10 [Dekas Plus Softgel] 1 ea PO DAILY #30 cap Nicotine [Nicoderm Cq] 21 mg TRANSDERM. DAILY #14 patch Primary Care Physician: Ninoska Walsh MD [Primary Care Provider] - Please follow up with your Primary Care Physician in: Follow-up within 3-5 days to review admission. Please Follow Up With: [facility] Plan When: Please follow with [facility] plan already in place. Patient Instructions: Understanding Alcoholism, Alcoholism: Myths and Facts, The Impact of Alcoholism, Alcoholism: Getting Help, Alcohol Addiction, Signs of Addiction: Social Use, Why Do You Smoke?, Planning to Quit Smoking, Getting Support for Quitting Smoking, Coping with Smoking Withdrawal Disposition: Home Minutes spent on discharge:: 35 Patient Condition:: Fair Medical Necessity - Tobacco Use Smoking Status: Current every day smoker Tobacco Use: Non-smoker Meaningful Use Info Meaningful Use Diagnoses (Choose all that apply): None applicable Code Visit Inpatient E&M: 83524 Disch Hosp
[2018-06-04 07:46] VITALS: O2SAT 96
[2018-06-04] MEDS: Multivitamins,Therapeutic Tablet 1 TABLET PO (09:26)
[2018-06-04] MEDS: Thiamine Hydrochloride 100 MG Tablet PO (09:26)
[2018-06-04] MEDS: Folic Acid 1 MG Tablet PO (09:26)
[2018-06-04 09:30] VITALS: BP 129/90; PULSE 78; RESP 18; TEMP 36.7; O2SAT 100
[2018-06-04 09:32] VITALS: BP 129/90; PULSE 78; RESP 18; TEMP 36.7
[2018-06-04] MEDS: chlordiazePOXIDE 25 MG Capsule PO (09:39)
== END 2018-06-04 09:42 | disposition home or self-care (01) | DRG 434 ==
LOC: ED 18:49 → MS3 19:49
PROVIDERS: Admitting Provider Hospitalist; Emergency Provider Emergency Medicine; Family Provider Internal Medicine; PCP Internal Medicine; Visit Provider Family Medicine
DX: F10.239 Alcohol dependence with withdrawal, unspecified (principal); R44.0 Auditory hallucinations; F31.9 Bipolar disorder, unspecified; F17.200 Nicotine dependence, unspecified, uncomplicated; Y90.6 Blood alcohol level of 120-199 mg/100 ml; R79.89 Other specified abnormal findings of blood chemistry; F19.20 Other psychoactive substance dependence, uncomplicated
CPT/HCPCS: 36415; 80048; 80053; 80307; 80320; 83735; 84100; 84703; 85025; 97802; 99218; 99281; 99406; A4216; G0378; G0480

== ENCOUNTER 2018-11-24 20:14 | Emergency (ER) | payer MEDICAID, SELFPAY ==
[2018-11-24 20:15] VITALS: BP 125/82; PULSE 84; RESP 16; TEMP 36.7; O2SAT 96; BMI 23.6
--- NOTE | 2018-11-24 20:50 | RAD_ITS ---
STUDY: X-RAY CHEST REASON FOR EXAM: Female, 43 years old. Cough TECHNIQUE: AP COMPARISON: 07/24/2016 FINDINGS: The lungs are clear and expanded. There is no demonstrated pleural abnormality. Normal size heart. Normal mediastinum and austen. Normal visualized pulmonary arteries. There is atherosclerotic tortuosity of the aortic arch and descending thoracic aorta. Normal visualized thoracic spine. Normal visualized ribs, clavicles, and shoulders. There is no demonstrated abnormality of the visualized soft tissue structures of the upper abdomen. RAD/Chest 1 View (Portable) IMPRESSION: Stable, nonacute portable x-ray examination of the chest. Electronically Signed: Carlos Hughes MD at 21:08 EST , Service support ,
--- NOTE | 2018-11-24 20:56 | ED.VISSUMM ---
- ER Visit Summary Date of Service: 11/24/18 Chief Complaint: Nausea, vomiting History of Present Illness: The patient is a 43 F presents with nausea, vomiting. She states that she has had symptoms on and off for the past month. She states she now has a cough. She has posttussive emesis. She also complains of diarrhea. She denies fever. She does have sick contacts. She went to urgent care was diagnosed with gastroenteritis. She states she continues to have symptoms. She denies abdominal pain. Denies other complaints. Physical Examination: Vitals are stable. Patient is afebrile. Alert no acute distress. HEENT exam is unremarkable. Neck is supple. Lungs are clear and equal bilaterally. Heart is regular rate and rhythm. Abdomen is soft nontender nondistended. No guarding or rebound Extremities are unremarkable. Skin is warm and dry. No focal neurologic deficit. Remainder of exam is unremarkable. Emergency Department Course and Treatment: Patient given IV fluids, Zofran. CBC, chemistries unremarkable. Liver enzymes normal except AST 76, alk phos 121. Lipase is normal. Her calcium is 7.7. She states she has calcium pills at home that she is supposed to be taking and will start taking again. Chest x-ray shows no acute process. She is feeling improved following fluids and Zofran. She is given prescription for Zofran and Tessalon Perles. She is advised to follow-up with her primary care physician. Advised return to ED if worsening complaints. Disposition: Discharge home Impression: Vomiting diarrhea; URI This note was generated with Friend[employer]ly dictation software. It may contain incorrect words, spelling, and punctuation that were not noted in review of the chart prior to signing ED Disposition - Plan for ED Patient: Disposition: Home or Assisted Living Instructions: ED Vomiting Diarrhea Nonspecific Ad Prescriptions: Ondansetron [Zofran Odt] 4 mg PO Q8H PRN PRN #10 tablet PRN Reason: Nausea Benzonatate [Tessalon Perle] 200 mg PO TID PRN PRN #20 capsule PRN Reason: Cough Referrals: Ninoska Walsh MD [Primary Care Provider] -
[2018-11-24] MEDS: Ondansetron 4 MG/2 ML Vial IV (21:03)
[2018-11-24] MEDS: 0.9% Normal Saline 1,000 ML 1000 ML IV (21:03)
[2018-11-24 21:10] LABS: Absolute Lymphocyte Count 2.35 X10^3/ul (0.83-4.51); Absolute Neutrophil Count 1.2 X10^3/uL (2.0-7.7); Basophil# 0.09 X10^3/uL; Basophil% 2.2 % (0-1); Eosinophil# 0.19 X10^3/uL; Eosinophils% 4.7 % (0-5); Hemoglobin 12.1 g/dl (12.0-15.0); Lymphocyte # 2.35 X10^3/ul (4.0); Lymphocyte % 57.7 % (19-41); Mean Corp Hgb Conc 33.6 g/gl (32-36); Mean Corpuscular Hgb 33.6 pg (27.0-32.0); Mean Platelet Vol. 9.5 fl (6.2-12.0); Monocyte# 0.29 X10^3/uL; Monocyte% 7.1 % (0-10); Neutrophil # 1.15 X10^3/uL (2.7-7.7); Neutrophil % 28.3 % (47-70); POSITIVE COUNT NO; POSITIVE DIFFERENTIAL NO; POSITIVE MORPHOLOGY NO; Platelet Count 210 K/mm3 (150-450); RBC Distribution Width CV 13.2 % (11.6-14.6); RBC Distribution Width SD 48.3 fl (35.1-43.9); White Blood Count 4.1 K/mm3 (4.4-11.0)
[2018-11-24 21:20] LABS: AST(SGOT) 76 U/L (15-37); Alanine Aminotransfer ALT/SGPT 36 U/L (13-56); Albumin, Serum 2.9 g/dL (3.2-5.0); Alkaline Phosphatase 121 U/L (45-117); Anion Gap 9 (5-15); BUN 3 mg/dL (7-18); BUN/Creat Ratio 6.9 RATIO (10-20); Bilirubin, Direct 0.07 mg/dL (0.00-0.30); Calcium,Total 7.7 mg/dL (8.5-10.1); Chloride 110 mmol/L (98-107); Creatinine, Serum 0.43 mg/dL (0.55-1.02); EST Glomerular Filtration Rate 171 mL/min (>60); Est Glom Filt Rate - Afr Amer 206 mL/min (>60); Estimated Creatinine Clearance 179.93 ml/min; Globulin 3.8 g/dL (2.2-4.2); Glucose 78 mg/dL (74-106); Lipase 106 U/L (73-393); Potassium 3.6 mmol/L (3.5-5.1); Protein, Total 6.7 g/dL (6.4-8.2); Sodium Level 141 mmol/L (136-145)
[2018-11-24 22:41] VITALS: BP 132/82; PULSE 88; RESP 16; O2SAT 98
--- NOTE | 2018-11-25 00:01 | ED.DEP ---
ED Disposition - Plan for ED Patient: Instructions: ED Vomiting Diarrhea Nonspecific Ad Prescriptions: Ondansetron [Zofran Odt] 4 mg PO Q8H PRN PRN #10 tablet PRN Reason: Nausea Benzonatate [Tessalon Perle] 200 mg PO TID PRN PRN #20 capsule PRN Reason: Cough Referrals: Ninoska Walsh MD [Primary Care Provider] -
[2018-11-25 00:06] VITALS: BP 145/86; PULSE 78; RESP 16; O2SAT 98
== END 2018-11-25 00:07 | disposition home or self-care (01) ==
PROVIDERS: Emergency Provider Emergency Medicine; Family Provider Internal Medicine; PCP Internal Medicine
DX: J06.9 Acute upper respiratory infection, unspecified (principal); R11.2 Nausea with vomiting, unspecified; R19.7 Diarrhea, unspecified; Z87.19 Personal history of other diseases of the digestive system; Z72.0 Tobacco use
CPT/HCPCS: 71045; 80048; 80076; 83690; 85025; 96361; 96374; 96375; 99283; J7030; A4216; J2405

== ENCOUNTER → 2019-03-08 | Outpatient (CLI) | payer MEDICAID, SELFPAY ==
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
== END | disposition home or self-care (01) ==
LOC: RAD 15:54
PROVIDERS: Family Provider Internal Medicine; PCP Internal Medicine; Referring Provider Chiropractor; Visit Provider Chiropractor
DX: S33.5XXA Sprain of ligaments of lumbar spine, initial encounter (principal); S13.4XXA Sprain of ligaments of cervical spine, initial encounter
CPT/HCPCS: 72050; 72110; 72220

== ENCOUNTER 2019-07-05 23:48 | Emergency (ER) | payer MEDICAID, SELFPAY ==
[2019-07-05 23:49] VITALS: BP 135/90; PULSE 91; RESP 18; TEMP 36.6; O2SAT 99; BMI 24.3
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
--- NOTE | 2019-07-05 23:56 | ED.DCSUM_ITS ---
- ER Visit Summary Date of Service: 07/05/19 Chief Complaint: Right hand pain History of Present Illness: The patient is a 44 F presenting with right hand pain. Patient states this started 2 weeks ago. She states she was opening a sliding door with her right first 2 fingers. She states she felt a pull and strain of her right hand. She is right-handed. She states she recently started a new job and has been using her hands more than usual. She denies other injuries. She has noticed mild swelling. No fever. No other complaints. Physical Examination: Vitals are stable. Patient is afebrile. Alert no acute distress. HEENT exam is unremarkable. Neck is supple. Lungs are clear and equal bilaterally. Heart is regular rate and rhythm. Extremities mild swelling along second and third metacarpal. No erythema or warmth. Active full range of motion. Normal cap refill. Normal sensation. Skin is warm and dry. No focal neurologic deficit. Remainder of exam is unremarkable. Emergency Department Course and Treatment: Ice pack was applied. Right hand x- ray shows no recent fracture or acute osseous abnormality identified. Right fifth metacarpal old post-traumatic deformity. Patient was given a cock- up wrist splint. Advised to ice and elevate. She is given prescription for Naprosyn. Advised follow-up with her primary care physician. Advised to return ED if worsening complaints. Disposition: Discharge home Impression: Right hand sprain This note was generated with 3yy game platform dictation software. It may contain incorrect words, spelling, and punctuation that were not noted in review of the chart prior to signing ED Disposition - Plan for ED Patient: Instructions: Sprain Hand Prescriptions: Naproxen [Naprosyn] 500 mg PO BID PRN #20 tab Prescription Printed Referrals: Ninoska Walsh MD [Primary Care Provider] -
--- NOTE | 2019-07-06 00:12 | ED.DEP ---
ED Disposition - Plan for ED Patient: Instructions: Sprain Hand Prescriptions: Naproxen [Naprosyn] 500 mg PO BID PRN #20 tablet Referrals: Ninoska Walsh MD [Primary Care Provider] -
[2019-07-06] MEDS: Naproxen 500 MG Tablet PO (00:40)
== END 2019-07-06 00:43 | disposition home or self-care (01) ==
LOC: ED 07-06 00:08
PROVIDERS: Emergency Provider Emergency Medicine; Family Provider Internal Medicine; PCP Internal Medicine
DX: S63.91XA Sprain of unspecified part of right wrist and hand, initial encounter (principal); Z72.0 Tobacco use; X50.0XXA Overexertion from strenuous movement or load, initial encounter; Y93.89 Activity, other specified; Y92.008 Other place in unspecified non-institutional (private) residence as the place of occurrence of the external cause; Y99.8 Other external cause status
CPT/HCPCS: 73130; 99285

== ENCOUNTER 2019-09-29 19:07 | Emergency (ER) | payer MEDICAID, SELFPAY ==
[2019-09-29 19:08] VITALS: BP 115/84; PULSE 102; RESP 18; TEMP 36.7; O2SAT 98; BMI 21.4
--- NOTE | 2019-09-29 19:43 | RAD_ITS ---
STUDY: X-RAY CHEST REASON FOR EXAM: Female, 44 years old. Copy shortness of breath. TECHNIQUE: Frontal and lateral views of the chest. COMPARISON: November 24, 2018 FINDINGS: Stable hyperexpansion. There is no demonstrated pleural abnormality. Normal size heart. Normal mediastinum and austen. Normal visualized pulmonary arteries. Normal visualized aortic arch and descending thoracic aorta. Normal visualized thoracic spine. Normal visualized ribs, clavicles, and shoulders. There is no demonstrated abnormality of the visualized soft tissue structures of the upper abdomen. RAD/Chest PA and Lateral IMPRESSION: Hyperexpansion with no acute or active cardiopulmonary disease. Electronically Signed: Reece Carlson MD at 21:11 EST , Service support ,
--- NOTE | 2019-09-29 19:43 | EKG12_ITS ---
Test Reason : WEAK Blood Pressure : / mmHG Vent. Rate : 075 BPM Atrial Rate : 075 BPM P-R Int : 188 ms QRS Dur : 092 ms QT Int : 402 ms P-R-T Axes : 076 041 033 degrees QTc Int : 448 ms Normal sinus rhythm Low voltage QRS Confirmed by GUSTAVO EDWARDS, PAMELA ([id number]), social media editor ROCHELLE JUNG ([id number]) on 10/03/2019 1:00:41 PM Referred By: MARS Confirmed By:PAMELA CHEN MD
[2019-09-29 19:59] LABS: Absolute Lymphocyte Count 2.32 X10^3/uL (0.83-4.51); Absolute Neutrophil Count 1.9 X10^3/uL (2.0-7.7); Basophil# 0.08 X10^3/uL; Basophil% 1.6 % (0-1); Eosinophils% 5.9 % (0-5); Hematocrit 40.2 % (37-47); Hemoglobin 13.8 g/dL (12.0-15.0); Lymphocyte # 2.32 X10^3/ul (4.0); Lymphocyte % 45.7 % (19-41); Mean Corp Hgb Conc 34.3 g/dL (32-36); Mean Corpuscular Hgb 33.3 pg (27.0-32.0); Mean Corpuscular Volume 97.1 fL (81-99); Mean Platelet Vol. 9.5 fl (6.2-12.0); Monocyte# 0.49 X10^3/uL; Monocyte% 9.6 % (0-10); NRBC Flagged by Analyzer 0 % (0-5); Neutrophil # 1.88 X10^3/uL (2.7-7.7); Platelet Count 217 K/mm3 (150-450); RBC Distribution Width CV 12.2 % (11.6-14.6); RBC Distribution Width SD 44.1 fl (35.1-43.9); Red Blood Count 4.14 M/mm3 (4.2-5.4); White Blood Count 5.1 K/mm3 (4.4-11.0)
[2019-09-29] MEDS: 0.9% Normal Saline 1,000 ML 1000 ML IV (20:01)
[2019-09-29 20:10] LABS: Bacteria 0 SEEN /hpf (None Seen); Mucous, Urine 0 SEEN /hpf (<or=2+); Red Blood Cells-Urine 0 SEEN /hpf (0-5); Squamous Epithelial Cells - UA 0 SEEN /hpf (5-10); White Blood Cells 0 SEEN /hpf (0-5)
[2019-09-29 20:11] LABS: Color, Urine Straw (Yellow); Glucose, Dipstick Normal (Normal); Ketone-Dipstick Negative (Negative); Leukocyte Esterase-Dipstick Negative /ul (Negative); Nitrite-Dipstick Negative (Negative); Occult Blood-Urine Negative /ul (Negative); Protein-Dipstick Negative (Negative); Specific Gravity, Urine 1.005 (1.002-1.030); Urine Bilirubin Dipstick Negative (Negative); Urine Clarity Clear (Clear); Urine Urobilinogen Normal (Normal)
[2019-09-29 20:33] LABS: ALB/GLOB Ratio 0.8 RATIO (0.9-2.4); AST(SGOT) 52 U/L (15-37); Alanine Aminotransfer ALT/SGPT 27 U/L (13-56); Albumin, Serum 3.5 g/dL (3.2-5.0); Alkaline Phosphatase 98 U/L (45-117); Anion Gap 11 (5-15); BUN 6 mg/dL (7-18); BUN/Creat Ratio 11.4 RATIO (10-20); Calcium,Total 8.6 mg/dL (8.5-10.1); Chloride 107 mmol/L (98-107); Creatinine, Serum 0.53 mg/dL (0.55-1.02); EST Glomerular Filtration Rate 135 mL/min (>60); Est Glom Filt Rate - Afr Amer 163 mL/min (>60); Estimated Creatinine Clearance 143.57 ml/min; Globulin 4.2 g/dL (2.2-4.2); Glucose 91 mg/dL (74-106); Potassium 3.9 mmol/L (3.5-5.1); Protein, Total 7.7 g/dL (6.4-8.2); Sodium Level 140 mmol/L (136-145)
--- NOTE | 2019-09-29 20:54 | ED.VIS.GEN ---
History of Present Illness Chief Complaint: General Illness Informant: Patient Onset: Days Context: Gradual Onset Narrative: Patient is a 44-year-old female with history of alcohol abuse presenting with not feeling well. She states that yesterday she is felt like her heart has been fluttering. She also states has been more tired and sleeping more. She still admits to shift work. She does have some shortness of breath with walking. She cannot tell me how long this is been going on. She has associated cough with mucus production. She had one episode of vomiting just prior to arrival. Patient states she feels lightheaded. She denies any chest abdominal pain, abnormal bowel movements or urinary symptoms. She does note that she is a regular drinker and drinks 4-5 beers every day. Her last drink was just prior to arrival. Patient is worried that she has walking pneumonia. She is worried that there might be something more wrong with her. She states she was last sober about a year ago and is not interested in detox at this time. She denies any other complaints at this time. Past Medical History - Allergies and Home Meds Allergies/Adverse Reactions: Allergies Penicillins Allergy (Verified 09/29/19 19:10) [facility] Primary Care Physician: Ninoska Walsh MD [Primary Care Provider] - Past Medical History: - - alcohol dependency Surgical History: appendectomy, - - Tonsillectomy, 2 knee surgeries on the left; and one knee surgery on the right Lives: With Family Smoking Status: Current every day smoker Alcohol: Heavy Drugs: None Review of Systems General: Reports: Malaise, - - lightheaded . Denies: Chills, Fever, Sweats Eyes: Denies: Visual changes - bilaterally, Diplopia ENT: Denies: Rhinorrhea, Sore throat Cardiovascular: Reports: Palpitations. Denies: Chest pain Respiratory: Reports: Dyspnea on exertion, -. Denies: Dyspnea, Cough Gastrointestinal: Reports: Vomiting. Denies: Abdominal pain, Nausea, Diarrhea, Melena, Hematochezia Genitourinary: Denies: Dysuria, Hematuria, Frequency Musculoskeletal: Denies: Back pain, Extremity Pain Skin: Denies: Rash, Wounds Neurological: Denies: Headache, Weakness, Numbness Physical Exam Vital Signs/Narrative: Vital Signs Temp Pulse Resp BP Pulse Ox 09/29/19 19:08 98.0 F 102 H 18 115/84 H 98 Inital Vital Signs reviewed: Yes General: Well nourished, Well developed, No Acute Distress Head: Normocephalic, Atraumatic Eyes: Perrl, EOMI. Negative for: Scleral icterus ENT: Moist mucous membranes, No rhinorrhea, TM's clear Neck: Supple, Nontender Cardiovascular: Regular rate, Regular rhythm, No murmurs. Negative for: Murmur Respiratory: No distress, CTA bilaterally, Chest nontender Abdomen: Soft, Nontender, Nondistended, Normal bowel sounds Back: Nontender, Normal Inspection Extremities: Nontender, No edema Skin: Normal color, No rash Neurological: Alert, Oriented x3, Cranial nerves II-XII grossly intact, Normal Strength, Normal Sensation Psychological: Normal affect, Normal Mood Diagnostic/Tx/Re-eval Chest X-Ray - ED: 2 View, Read by ED Physician, Read by Radiologist, No Acute Disease Clinical Impression(s) from Imaging Studies Chest X-Ray 09/29/19 19:43 IMPRESSION: Hyperexpansion with no acute or active cardiopulmonary disease. Electronically Signed: Reece Carlson MD at 21:11 EST , Service support , Laboratory Data 09/29/19 09/29/19 09/29/19 19:52 19:52 19:52 WBC 5.1 RBC 4.14 L Hgb 13.8 Hct 40.2 MCV 97.1 MCH 33.3 H MCHC 34.3 RDW Std Deviation 44.1 H RDW Coeff of Alok 12.2 Plt Count 217 MPV 9.5 Immature Gran % (Auto) 0.200 Neut % (Auto) 37.0 L Lymph % (Auto) 45.[address] [place] % (Auto) 9.6 Eos % (Auto) 5.9 H Baso % (Auto) 1.6 H Absolute Neuts (auto) 1.9 L Absolute Lymphs (auto) 2.32 Nucleated RBC % 0 Sodium 140 Potassium 3.9 Chloride 107 Carbon Dioxide 22.0 Anion Gap 11 BUN 6 L Creatinine 0.53 L Estim Creat Clear Calc 143.57 Est GFR (MDRD) Af Amer 163 Est GFR (MDRD) Non-Af 135 BUN/Creatinine Ratio 11.4 Glucose 91 Calcium 8.6 Total Bilirubin 0.20 AST 52 H ALT 27 Alkaline Phosphatase 98 Troponin I < 0.015 Total Protein 7.7 Albumin 3.5 Globulin 4.2 Albumin/Globulin Ratio 0.8 L Urine Color Urine Clarity Urine pH Ur Specific [place] Urine Protein Urine Glucose (UA) Urine Ketones Urine Occult Blood Urine Nitrite Urine Bilirubin Urine Urobilinogen Ur Leukocyte Esterase Urine RBC Urine WBC Ur Squamous Epith Cells Urine Bacteria Urine Mucus Ethyl Alcohol 329.0 H* 09/29/19 20:05 WBC RBC Hgb Hct MCV MCH MCHC RDW Std Deviation RDW Coeff of Alok Plt Count MPV Immature Gran % (Auto) Neut % (Auto) Lymph % (Auto) [place] % (Auto) Eos % (Auto) Baso % (Auto) Absolute Neuts (auto) Absolute Lymphs (auto) Nucleated RBC % Sodium Potassium Chloride Carbon Dioxide Anion Gap BUN Creatinine Estim Creat Clear Calc Est GFR (MDRD) Af Amer Est GFR (MDRD) Non-Af BUN/Creatinine Ratio Glucose Calcium Total Bilirubin AST ALT Alkaline Phosphatase Troponin I Total Protein Albumin Globulin Albumin/Globulin Ratio Urine Color Straw Urine Clarity Clear Urine pH 6.0 Ur Specific [place] 1.005 Urine Protein Negative Urine Glucose (UA) Normal Urine Ketones Negative Urine Occult Blood Negative Urine Nitrite Negative Urine Bilirubin Negative Urine Urobilinogen Normal Ur Leukocyte Esterase Negative Urine RBC 0 SEEN Urine WBC 0 SEEN Ur Squamous Epith Cells 0 SEEN Urine Bacteria 0 SEEN Urine Mucus 0 SEEN Ethyl Alcohol - Rhythm Strip Rhythm Strip: Sinus Rhythm Rate: 75 Ectopy: None - EKG Initial EKG Interpretation: Sinus Rhythm, - - Sinus rhythm at a rate of [address] segments Normal axis - Medical Decision Making Evaluated for fatigue, cough and overall not feeling well. She is a daily drinker and drinks heavily. She is not interested in detox. Patient's physical exam is unremarkable. Her vital signs are normal. While patient admits to drinking that she does not act intoxicated and is behaving appropriately. EKG is obtained and she states she is been having palpitations. It is normal. Her troponin is normal. Her symptoms have been occurring for about 24 hours and with a normal troponin I think that she is due for outpatient follow-up. Order CBC and CMP are grossly unremarkable. She does not have a significant transaminitis. Patient does not appear jaundiced and I do not suspect an acute liver failure at this time. Patient might have a viral syndrome that is been causing her to feel more fatigued and coughing. She does not have a pneumonia on her chest x-ray. Patient is instructed to follow-up with primary care doctor. She is encouraged to limit her drinking and ultimately stop drinking. She is given a work note for today per request. Patient is counseled on signs and symptoms requiring return to the emergency room. Patient verbalizes agreement and understand this plan. Patient discharged home in stable and improved condition. ED Disposition - Plan for ED Patient: Disposition: Home or Assisted Living Diagnosis: Alcohol dependence, Malaise and fatigue Instructions: VIRAL SYNDROME (Adult), Alcohol Abuse Referrals: Ninoska Walsh MD [Primary Care Provider] - Additional Instructions: Return to the emergency room if you develop any worsening symptoms. Your work-up was largely normal today do not have pneumonia on her chest x-ray. Your heart appears normal at this time. Please follow-up with your primary care doctor for further evaluation of your symptoms.
[2019-09-29 21:08] VITALS: BP 102/71; PULSE 73; RESP 16; O2SAT 99
[2019-09-29 22:13] VITALS: BP 120/86; PULSE 78; RESP 15; O2SAT 98
== END 2019-09-29 22:14 | disposition home or self-care (01) ==
PROVIDERS: Emergency Provider Emergency Medicine; Family Provider Internal Medicine; PCP Internal Medicine
DX: R53.83 Other fatigue (principal); R53.81 Other malaise; F10.20 Alcohol dependence, uncomplicated; F17.200 Nicotine dependence, unspecified, uncomplicated
CPT/HCPCS: 71046; 80053; 80320; 81001; 84484; 85025; 93005; 96360; 96361; 99283; J7030; G0480

== ENCOUNTER 2019-12-01 17:37 | Emergency (ER) | payer MEDICAID, SELFPAY ==
[2019-12-01 17:39] VITALS: BP 123/84; PULSE 95; RESP 18; TEMP 36.3; O2SAT 98; BMI 23.3
--- NOTE | 2019-12-01 17:59 | ED.VIS.GEN ---
History of Present Illness Chief Complaint: Shortness of Breath Informant: Patient Onset: Weeks - 4 weeks Context: Gradual Onset Timing: Waxes and wanes Current Severity: Moderate Maximum Severity: Moderate Narrative: Patient presents with a 4-week history of shortness of breath and congestion. She states she can feel rattling in her chest. Shortness of breath is worse with any exertion. She is coughing up sputum as well as having posttussive emesis. She reports fever last weekend of 100.3. She has not seen anybody during this course of illness. She is a smoker but has never been diagnosed with COPD. - Past Medical History (1) Alcoholism Status: Chronic (2) Bipolar disorder Status: Chronic Past Medical History - Allergies and Home Meds Allergies/Adverse Reactions: Allergies Penicillins Allergy (Verified 12/01/19 17:38) Hives Primary Care Physician: Ninoska Walsh MD [Primary Care Provider] - Prior records reviewed: Yes Surgical History: appendectomy, - - Tonsillectomy, 2 knee surgeries on the left; and one knee surgery on the right Lives: With Family Smoking Status: Current every day smoker Review of Systems General: Reports: Fever. Denies: Chills Eyes: Denies: Visual changes - bilaterally ENT: Denies: Bilateral ear pain Cardiovascular: Denies: Chest pain Respiratory: Reports: Dyspnea, Cough, Sputum Gastrointestinal: Reports: Nausea, Vomiting Musculoskeletal: Reports: Myalgias Skin: Denies: Rash, Wounds Neurological: Denies: Headache Hematologic: Denies: Easy bruising Allergy: Denies: Uticaria Physical Exam Vital Signs/Narrative: Vital Signs Temp Pulse Resp BP Pulse Ox 12/01/19 17:39 97.4 F L 95 18 123/84 H 98 Inital Vital Signs reviewed: Yes General: Well nourished, Well developed Head: Normocephalic ENT: Moist mucous membranes Neck: Supple Cardiovascular: Regular rate, Regular rhythm Respiratory: No distress, CTA bilaterally Abdomen: Soft, Nontender Extremities: Nontender Skin: Normal color, No rash Neurological: Alert, Oriented x3 Psychological: Normal affect Diagnostic/Tx/Re-eval Impressions Chest X-Ray 12/01/19 18:35 IMPRESSION: Right middle lobe atelectasis. Electronically Signed: Catie Lawrence MD at 18:59 EST Tel , Service support , 12/01/19 18:35 Chest PA and Lateral [RAD] Stat Laboratory Results 12/01/19 12/01/19 12/01/19 18:10 18:10 18:10 WBC 5.2 RBC 4.16 L Hgb 13.2 Hct 38.9 MCV 93.5 MCH 31.7 MCHC 33.9 RDW Std Deviation 43.3 RDW Coeff of Alok 12.5 Plt Count 314 MPV 9.5 Immature Gran % (Auto) 0.200 Neut % (Auto) 22.3 L Lymph % (Auto) 61.9 H [place] % (Auto) 10.7 H Eos % (Auto) 3.8 Baso % (Auto) 1.1 H Absolute Neuts (auto) 1.2 L Absolute Lymphs (auto) 3.23 Nucleated RBC % 0 Sodium 137 Potassium 3.6 Chloride 103 Carbon Dioxide 27.0 Anion Gap 7 BUN 1 L Creatinine 0.51 L Estim Creat Clear Calc 155.39 Est GFR (MDRD) Af Amer 169 Est GFR (MDRD) Non-Af 140 BUN/Creatinine Ratio 2.0 L Glucose 84 Calcium 8.4 L Total Bilirubin 0.10 L Direct Bilirubin 0.12 AST 43 H ALT 28 Alkaline Phosphatase 84 Total Protein 7.7 Albumin 2.9 L Globulin 4.8 H Urine Color Straw Urine Clarity Clear Urine pH 6.5 Ur Specific [place] 1.010 Urine Protein Negative Urine Glucose (UA) Normal Urine Ketones Negative Urine Occult Blood Negative Urine Nitrite Negative Urine Bilirubin Negative Urine Urobilinogen Normal Ur Leukocyte Esterase Negative Urine RBC 0-5 SEEN Urine WBC 0 SEEN Ur Squamous Epith Cells 0 SEEN Urine Bacteria 0 SEEN Urine Mucus 0 SEEN - Medical Decision Making Patient is given IV fluids here. On repeat evaluation she is resting comfortably. Test results are discussed with her. Because she has had significant length of illness and does have history of chronic smoking I suspect she has a component of COPD. She will be covered with doxycycline, first dose given here. ED Disposition - Plan for ED Patient: Disposition: Home or Assisted Living Diagnosis: Bronchitis Instructions: BRONCHITIS, Antiobiotic Treatment (Adult) Prescriptions: Doxycycline 100 mg PO BID #20 cap Transmission Status: Pending to [id number] Referrals: Ninoska Walsh MD [Primary Care Provider] - 1 Week
[2019-12-01] MEDS: 0.9% Normal Saline 1,000 ML 1000 ML IV (18:15)
[2019-12-01 18:22] LABS: Bacteria 0 SEEN /hpf (None Seen); Mucous, Urine 0 SEEN /hpf (<or=2+); Squamous Epithelial Cells - UA 0 SEEN /hpf (5-10); White Blood Cells 0 SEEN /hpf (0-5)
[2019-12-01 18:23] LABS: Color, Urine Straw (Yellow); Glucose, Dipstick Normal (Normal); Ketone-Dipstick Negative (Negative); Leukocyte Esterase-Dipstick Negative /ul (Negative); Nitrite-Dipstick Negative (Negative); Occult Blood-Urine Negative /ul (Negative); Protein-Dipstick Negative (Negative); Urine Bilirubin Dipstick Negative (Negative); Urine Clarity Clear (Clear); Urine Urobilinogen Normal (Normal); Urine pH 6.5 (5.0 - 8.0)
[2019-12-01 18:25] LABS: Absolute Lymphocyte Count 3.23 X10^3/uL (0.83-4.51); Absolute Neutrophil Count 1.2 X10^3/uL (2.0-7.7); Basophil# 0.06 X10^3/uL; Basophil% 1.1 % (0-1); Eosinophils% 3.8 % (0-5); Hematocrit 38.9 % (37-47); Hemoglobin 13.2 g/dL (12.0-15.0); Lymphocyte # 3.23 X10^3/ul (4.0); Lymphocyte % 61.9 % (19-41); Mean Corp Hgb Conc 33.9 g/dL (32-36); Mean Corpuscular Hgb 31.7 pg (27.0-32.0); Mean Corpuscular Volume 93.5 fL (81-99); Mean Platelet Vol. 9.5 fl (6.2-12.0); Monocyte# 0.56 X10^3/uL; Monocyte% 10.7 % (0-10); NRBC Flagged by Analyzer 0 % (0-5); Neutrophil # 1.16 X10^3/uL (2.7-7.7); Neutrophil % 22.3 % (47-70); Platelet Count 314 K/mm3 (150-450); RBC Distribution Width CV 12.5 % (11.6-14.6); RBC Distribution Width SD 43.3 fl (35.1-43.9); Red Blood Count 4.16 M/mm3 (4.2-5.4); White Blood Count 5.2 K/mm3 (4.4-11.0)
[2019-12-01 18:30] LABS: Red Blood Cells-Urine 0-5 SEEN /hpf (0-5)
--- NOTE | 2019-12-01 18:35 | RAD_ITS ---
STUDY: X-RAY CHEST REASON FOR EXAM: Female, 44 years old. Cough, shortness of breath TECHNIQUE: PA and lateral views of the chest. COMPARISON: September 29, 2019 FINDINGS: There are linear opacities within the right middle lobe. Normal size heart. Normal mediastinum and austen. Normal visualized pulmonary arteries. Normal visualized aortic arch and descending thoracic aorta. Normal visualized thoracic spine. Normal visualized ribs, clavicles, and shoulders. There is no demonstrated abnormality of the visualized soft tissue structures of the upper abdomen. RAD/Chest PA and Lateral IMPRESSION: Right middle lobe atelectasis. Electronically Signed: Catie Lawrence MD at 18:59 EST Tel , Service support ,
[2019-12-01 18:45] LABS: AST(SGOT) 43 U/L (15-37); Alanine Aminotransfer ALT/SGPT 28 U/L (13-56); Albumin, Serum 2.9 g/dL (3.2-5.0); Alkaline Phosphatase 84 U/L (45-117); Anion Gap 7 (5-15); BUN 1 mg/dL (7-18); Bilirubin, Direct 0.12 mg/dL (0.00-0.30); Calcium,Total 8.4 mg/dL (8.5-10.1); Chloride 103 mmol/L (98-107); Creatinine, Serum 0.51 mg/dL (0.55-1.02); EST Glomerular Filtration Rate 140 mL/min (>60); Est Glom Filt Rate - Afr Amer 169 mL/min (>60); Estimated Creatinine Clearance 155.39 ml/min; Globulin 4.8 g/dL (2.2-4.2); Glucose 84 mg/dL (74-106); Potassium 3.6 mmol/L (3.5-5.1); Protein, Total 7.7 g/dL (6.4-8.2); Sodium Level 137 mmol/L (136-145)
[2019-12-01 20:28] VITALS: BP 106/88; PULSE 87; RESP 16; O2SAT 100
[2019-12-01] MEDS: Doxycycline 100 MG CAPSULE PO (20:54)
== END 2019-12-01 20:55 | disposition home or self-care (01) ==
PROVIDERS: Emergency Provider Emergency Medicine; PCP Internal Medicine
DX: J40 Bronchitis, not specified as acute or chronic (principal); F31.9 Bipolar disorder, unspecified; F17.200 Nicotine dependence, unspecified, uncomplicated; Z79.899 Other long term (current) drug therapy
CPT/HCPCS: 71046; 80048; 80076; 81001; 85025; 96360; 96361; 99283; J7030; A4216

== ENCOUNTER 2020-05-20 12:10 | Day surgery (SDC) | payer MEDICAID, SELFPAY ==
--- NOTE | 2020-05-17 18:22 | PCM.HP.BLA ---
History and Physical Date of Admission: 05/20/20 Rosemarie Soto a 44 year old female who is a consultation requested by Dr. Walsh for an opinion regarding chronic diarrhea. My final recommendations will be communicated back to the requesting physician by way of shared Medical record. The patient denies a family history of colon cancer. ? The patient has been seen previously. I saw her 12/19/18 for multiple GI concerns. At that time she was positive for Hpylori was in the process of being treated by Lyn Dennis. At that time she also admitted to drinking a large volume of alcohol daily. She declined stopping. ? The patient had a phone encounter with Dr. Walsh on 03/25/20, leading to this consultation. That note has been reviewed. She reported having watery stools every 15 minutes. Stool studies were negative. ? Component Latest Ref Rng & Units 03/26/2020 Albumin 3.9 - 4.9 g/dL 3.7 (L) Bilirubin, Total 0.2 - 1.3 mg/dL 0.3 Bilirubin, Conjug <0.2 mg/dL <0.2 Alkaline Phosphatase 34 - 123 U/L 162 (H) AST 13 - 35 U/L 129 (H) ALT 7 - 38 U/L 49 (H) Protein, Total 6.3 - 8.0 g/dL 7.0 ? RUQ US 04/11/20: IMPRESSION: Hepatic steatosis. ?Hepatitis panel was negative in November. ? Presenting complaint: here lately I have been throwing up when I cough really bad. I have a whole lot of mucus. It's been every day since it's been hot. Reports a burning sensation in her stomach. ?Denies feeling nausea, but takes Zofran with some relief. No herbal supplements. Drinks alcohol daily. ?Having multiple bowel movements a day. All stools are water. Waking up at night to go. Some are mucus. No blood. Generalized abdominal discomfort, but not pain. Perianal pain from so much wiping. Might see a little blood on the paper from wiping so much. ? ? PAST MEDICAL HISTORY ? Alcohol withdrawal (HCC) ? ? Bipolar 1 disorder (HCC) ? ? Complex ovarian cyst 01/02/2015 ? Depression ? ? Insomnia ? ? Polysubstance dependence (HCC) 06/01/2018 ? PAST SURGICAL HISTORY ? CERVIX UTERI CAUTER CRYOCAUTER ? ? ? KNEE ARTHROSCOPY/SURGERY ? 1999, 2003,2005 ? 2 on left & 1 on right ? REMOVAL OF TONSILS,<12 Y/O ? ? ? Tonsillectomy ? TUBAL LIGATION HX ? ? ? FAMILY HISTORY ? Heart Father ? ? of DC at the age of 46 ? Alcohol/Drug Mother ? ? Cancer Maternal Grandmother ? ? lung ? Glaucoma Maternal Grandmother ? ? Heart Maternal Grandfather ? ? Diabetes Sister ? ? Diabetes Paternal Aunt ? ? Diabetes Son ? ? CURRENT MEDICATIONS ? rizatriptan (MAXALT) 10 mg tablet Take 1 tablet by mouth, if no improvement after 2 hours you may repeat dose. Do not exceed 30mg in 24 hours. 9 tablet 1 ? ondansetron orally disintegrating (ZOFRAN ODT) 4 mg disintegrating tablet Take 1 tablet by mouth every 12 hours as needed for Nausea/Vomiting. 12 tablet 0 ? venlafaxine ER (EFFEXOR XR) 75 mg 24 hr capsule Take 1 capsule by mouth once daily. 30 capsule 3 ? gabapentin (NEURONTIN) 300 mg capsule Take 1 capsule by mouth daily at bedtime for 30 days. 30 capsule 5 ? traZODone (DESYREL) 100 mg tablet Take 1 tablet by mouth daily at bedtime. Takes PRN 60 tablet 0 ? fenofibrate nanocrystallized (TRICOR) 48 mg tablet Take 1 tablet by mouth once daily. 30 tablet 3 ? omeprazole (PRILOSEC) 20 mg capsule Take 1 capsule by mouth once daily. 1/2 hr before meal. Dx: A04.8 30 capsule 2 ? Lactobac 40-Bifido 3-S.thermop (PROBIOTIC) 100 billion cell cap Take 1 capsule by mouth once daily. 30 capsule 2 ? thiamine (VITAMIN B1) 100 mg tablet Take 1 tablet by mouth once daily. 30 tablet 2 ? loratadine (CLARITIN) 10 mg tablet Take 1 tablet by mouth once daily. 30 tablet 11 ? ibuprofen (MOTRIN) 600 mg tablet Take 1 tablet by mouth every 6 hours as needed for Pain. 30 tablet ??? SOCIAL HISTORY: Patient is . She smokes maybe a cigarette every five minutes. Rosemarie reports her alcohol use as 1- 4 tall boys a day. Denies any recreational drugs. REVIEW OF SYSTEMS: GENERAL: Not sure about weight loss. No fever. HEENT: Migraines. No changes in hearing or vision, no nose bleeds or other nasal problems NECK: Negative for lumps, goiter, pain and significant neck swelling RESPIRATORY: Negative for cough, hemoptysis, wheezing, COPD, dyspnea or shortness of breath CARDIOVASCULAR: Negative for chest pain, leg swelling, hypertension, CHF or palpitations GI: The patient states that her appetite has been adequate. She does get hungry. There has been some nausea, no vomiting. She denies dysphagia and denies odynophagia. There has been indigestion without heartburn. There has not been regurgitation. Bowel habits have been irregular. There has partially been diarrhea. There has not been constipation. The patient denies rectal bleeding. There has not been melena. No abdominal pain. CHARGEBACK SPECIALIST: Negative for abnormal vaginal bleeding, abnormal vaginal discharge. LMP: BTL. MUSCULOSKELETAL: No new or worsening joint pain or swelling, back pain or muscle pain PSYCH: Positive for depression, anxiety, and bipolar disorder. Sees psych at [facility] HEMATOLOGY/LYMPHOLOGY Negative for prolonged bleeding, bruising easily or swollen nodes ENDOCRINE: No thyroid or diabetes NEURO: Migraine headaches All other reviewed and negative other than HPI. ? PHYSICAL EXAMINATION: Vitals on patient's chart and reviewed by me HEENT - no evidence of infection and/or trauma Lungs - no labored breathing noted, normal respirations Heart - regular Abdomen - soft Extremities - without edema Neuro - non focal Psych - calm and appropriate ? Impression: nausea and vomiting 2)diarrhea ? Plan: We discussed the need to decrease alcohol intake. Zinc oxide to the perianal area. ? The patient will be scheduled for an upper endoscopy and colonoscopy at [facility] with [facility]. Preparation for the procedures, using Miralax and Dulxolax as the laxative, have been explained in detail. The risks, benefits, anticipated outcomes and possible complications were mentioned, including including failure to complete the endoscopy and perforation. I explained the procedure in understandable terms and the patient was given printed material concerning the planned procedure. The patient had the opportunity to ask questions concerning the planned procedure. The patient freely consents to the planned procedure. ? The patient and I have discussed in detail the risk of exposure to and/or potential harm posed by the COVID-19 virus with having a procedure at this time versus the risk of?delaying the procedure. The patient is aware that it is not possible to know either the risk of delaying the procedure or chance of getting an infection with perfect accuracy, but I have explained to the patient the measures that are being taken to minimize any potential risk of infection. A joint decision was made between the patient and me?to proceed at this time with the procedures. ? The patient is encouraged to call with any questions or concerns, or should there be any change in health status between now and the scheduled procedure. ?? Mackenzie Nice RN CUSTOMER OPERATIONS REPRESENTATIVE.[employer]
[2020-05-20] VITALS (7 sets, daily range): BP systolic 114–148; BP diastolic 78–87; PULSE 16–87; RESP 15–16; TEMP 36.2–36.5; O2SAT 99–100; BMI 21.6
--- NOTE | 2020-05-20 | GASB_PTH ---
PATIENT: FRANCESCO RANGEL LOC: EN U#:[id number] AGE/SX: 45/F ROOM: RE05/20/[address]: Dr. Leticia Smiley MD : 1975 BED: DIS: 05/20/2020 SPEC #: [id number] RECD: 05/20/20 14:36 STATUS: ANGÉLICA NANDO #: [id number] VICENTE: 05/20/20 00:[address]: Leticia Smiley DEPT: SURGICAL PATHOLOGY RECD BY: Ibrahima Holly ENTERED: 05/21/20 08:46 SP TYPE: Gastric Bx OTHR DR: Dr. Ninoska Walsh MD Tissues: A - Gastric mucous membrane B - Transverse colon C - Left colon D - Sigmoid colon biopsy Procedures: Surgery Specimen Level IV HEADER OPERATION: Colonoscopy, EGD ([facility] [place]) PRE-OP DIAGNOSIS: Nausea, vomiting, diarrhea TISSUE SUBMITTED: A - Antrum biopsy for histo and H. pylori, B - Right and transverse colon biopsy, C - Left colon biopsy, D - Sigmoid colon biopsy MICROSCOPIC DIAGNOSIS A. Gastric antrum, biopsy: Chronic gastritis, mild to moderate. See comment. B. Right and transverse colon, biopsy: No pathologic change. C. Left colon, biopsy: No pathologic change. D. Sigmoid colon, biopsy: No pathologic change. AM:jesse 05/22/20 COMMENT A. The results of immunohistochemistry for Helicobacter pylori will be reported separately ([id number]). MICROSCOPIC DESCRIPTION Slides are reviewed. GROSS DESCRIPTION A - Received in fixative is one container labeled with the patient's name and designated antrum biopsy. The specimen consists of two irregular fragments of light reardon soft tissue that in aggregate measure 0.4 x 0.2 x 0.1 cm. The specimen is totally submitted in one cassette. B - Received in fixative is one container labeled with the patient's name and designated right colon plus sigmoid biopsy. The specimen consists of multiple irregular fragments of light reardon soft tissue that in aggregate measure 1 x 0.2 x 0.1 cm. The specimen is totally submitted in one cassette. C - Received in fixative is one container labeled with the patient's name and designated left colon biopsy. The specimen consists of multiple irregular fragments of light reardon soft tissue that in aggregate measure 0.5 x 0.2 x 0.1 cm. The specimen is totally submitted in one cassette. D - Received in fixative is one container labeled with the patient's name and designated sigmoid colon biopsy. The specimen consists of one irregular fragment of light reardon soft tissue that measures 0.2 x 0.1 x 0.1 cm. The specimen is totally submitted in one cassette. / SJ:rg 05/21/20 TC:3 CPT: 53082 x4
[2020-05-20] MEDS: Lactated Ringers 1,000 ML 100 ML IV (12:38)
--- NOTE | 2020-05-20 13:20 | IMM_PTH ---
PATIENT: FRANCESCO RANGEL LOC: EN U#:[id number] AGE/SX: 45/F ROOM: RE05/20/[address]: Dr. Leticia Smiley MD : 1975 BED: DIS: 05/20/2020 SPEC #: [id number] RECD: 05/21/20 09:35 STATUS: ANGÉLICA REQ #: [id number] VICENTE: 05/20/20 13:[address]: Leticia Smiley DEPT: IMMUNOHISTOCHEMISTRY RECD BY: Fabiola Burciaga ENTERED: 05/21/20 09:35 SP TYPE: IMMUNO OTHR DR: Dr. Ninoska Walsh MD Tissues: A - Stomach, NOS Procedures: H Pylori (initial) PHYSICIAN & INSTITUTION [place] [id number] SPECIMEN INFORMATION: Tissue Source: A - Antrum biopsy Clinical Info: Nausea, vomiting, diarrhea Specimen Number: [id number] CPT code: 12817 METHODOLOGY: Deparaffinized sections of prefer/formalin-fixed tissue or PAP/DQ stained slides are incubated with monoclonal/polyclonal antibodies/oligonucleotide probes. Localization is made via biotin free immunoperoxidase method. Appropriate controls are performed and reacted as expected. Results on target cell population are indicated in the following table: RESULTS: ANTIBODY / CLONE RESULT Block A H Pylori (polyclonal) negative These tests were developed and their performance characteristics determined by [facility]. They may not have been cleared or approved by the U.S. Food and Drug Administration. The FDA has determined that such clearance or approval is not necessary. INTERPRETATION: A. Antrum, biopsy: Negative for Helicobacter pylori organisms. AM:jesse 05/23/20
--- NOTE | 2020-05-20 14:21 | OP.EGD_ITS ---
Patient Name: Rosemarie Soto Procedure Date: 05/20/2020 1:34 PM Date of : 1975 Age: 45 Procedure: Upper GI endoscopy Indications: Abdominal distention, Nausea with vomiting Providers: Leticia Smiley MD Referring MD: Ninoska Walsh Medicines: See the Anesthesia note for documentation of the administered medications Patient Profile: Refer to note in patient chart for documentation of history and physical. Patient has symptoms. Complications: No immediate complications. Estimated blood loss: None. Procedure: Pre-Anesthesia Assessment: - see anesthesia note After obtaining informed consent, the endoscope was passed under direct vision. Throughout the procedure, the patient's blood pressure, pulse, and oxygen saturations were monitored continuously. The gastroscope was introduced through the mouth, and advanced to the second part of duodenum. The upper GI endoscopy was accomplished without difficulty. The patient tolerated the procedure well. Scope In: 1:49:09 PM Scope Out: 1:54:55 PM Total Procedure Duration Time 0 hours 5 minutes 46 seconds Findings: The first portion of the duodenum and second portion of the duodenum were normal. Striped moderately erythematous mucosa with bleeding on contact was found in the gastric antrum. Biopsies were taken with a cold forceps for histology. Verification of patient identification for the specimen was done by the nurse. Estimated blood loss was minimal. A small hiatal hernia was present. Impression: - Normal first portion of the duodenum and second portion of the duodenum. - Erythematous mucosa in the antrum. Biopsied. - Small hiatal hernia. Recommendation: - Discharge patient to home (ambulatory). - Resume previous diet. - Continue present medications. - Await pathology results. - My office will telephone with pathology results in 1-2 weeks Procedure Code(s): --- Professional --- 11432, Esophagogastroduodenoscopy, flexible, transoral; with biopsy, single or multiple Diagnosis Code(s): --- Professional --- K31.89, Other diseases of stomach and duodenum K44.9, Diaphragmatic hernia without obstruction or gangrene R14.0, Abdominal distension (gaseous) R11.2, Nausea with vomiting, unspecified CPT copyright 2017 [employer]. All rights reserved. The codes documented in this report are preliminary and upon down filler review may be revised to meet current compliance requirements. MD Leticia Deal MD 05/20/2020 2:20:20 PM This report has been signed electronically. Number of Addenda: 0 Note Initiated On: 05/20/2020 1:34 PM
--- NOTE | 2020-05-20 14:21 | OP.CCLET_ITS ---
05/20/2020 Ninoska Walsh [address] [id number] Re : Upper GI endoscopy procedure for Rosemarie Fuentesjudy Dear Dr. Walsh This procedure was performed on Wednesday, May 20, 2020. My impressions and recommendations are as follows: Impressions : - Normal first portion of the duodenum and second portion of the duodenum. - Erythematous mucosa in the antrum. Biopsied. - Small hiatal hernia. Recommendations : - Discharge patient to home (ambulatory). - Resume previous diet. - Continue present medications. - Await pathology results. - My office will telephone with pathology results in 1-2 weeks My findings are described in the full procedure note, which is enclosed. If I can be of further assistance, please feel free to contact me at Doctor phone number(s): , Work: . Sincerely, MD Leticia Deal MD 05/20/2020 2:20:20 PM This report has been signed electronically.
--- NOTE | 2020-05-20 14:25 | OP.CCLET_ITS ---
05/20/2020 Ninoska Walsh [address] [id number] Re : Colonoscopy procedure for Rosemarie Soto Dear Dr. Walsh This procedure was performed on Wednesday, May 20, 2020. My impressions and recommendations are as follows: Impressions : - Friability with contact bleeding in the ascending colon. Biopsied. - Erythematous mucosa in the transverse colon. Biopsied. - Non-bleeding internal hemorrhoids. Recommendations : - My office will telephone with pathology results in 1-2 weeks - Repeat colonoscopy is recommended for surveillance. The colonoscopy date will be determined after pathology results from today's exam become available for review. - Continue present medications. My findings are described in the full procedure note, which is enclosed. If I can be of further assistance, please feel free to contact me at Doctor phone number(s): , Work: . Sincerely, MD Leticia Deal MD 05/20/2020 2:24:28 PM This report has been signed electronically.
--- NOTE | 2020-05-20 14:25 | OP.COLON_ITS ---
Patient Name: Rosemarie Soto Procedure Date: 05/20/2020 1:55 PM Date of : 1975 Age: 45 Procedure: Colonoscopy Indications: Clinically significant diarrhea of unexplained origin Providers: Leticia Smiley MD Referring MD: Ninoska Walsh Medicines: See the Anesthesia note for documentation of the administered medications Patient Profile: Refer to note in patient chart for documentation of history and physical. Patient has symptoms. Last Colonoscopy: date unknown. Complications: No immediate complications. Procedure: Pre-Anesthesia Assessment: - see anesthesia note After I obtained informed consent, the scope was passed under direct vision. Throughout the procedure, the patient's blood pressure, pulse, and oxygen saturations were monitored continuously. The colonoscope was introduced through the anus and advanced to the cecum, identified by the appendiceal orifice, IC valve and transillumination. The colonoscopy was performed without difficulty. The patient tolerated the procedure well. The quality of the bowel preparation was adequate. Scope In: 1:57:04 PM Scope Withdrawal Time 0 hours 10 minutes 8 seconds Scope Out: 2:16:22 PM Total Procedure Duration Time 0 hours 19 minutes 18 seconds Findings: The perianal and digital rectal examinations were normal. Pertinent negatives include normal sphincter tone. A diffuse area of moderately friable mucosa with contact bleeding was found in the ascending colon. Biopsies were taken with a cold forceps for histology. Verification of patient identification for the specimen was done by the nurse. Estimated blood loss was minimal. A diffuse area of mildly erythematous mucosa was found in the transverse colon. Biopsies were taken with a cold forceps for histology. Verification of patient identification for the specimen was done by the nurse. Estimated blood loss was minimal. The right colon had more evidence of irritation than the transverse colon. Random biopsies were taken of the left colon and the sigmoid colon but no evidence of mucosal abnormalities were noted. The colitis was mainly in the right and proximal transverse colon. Non-bleeding internal hemorrhoids were found. Impression: - Friability with contact bleeding in the ascending colon. Biopsied. - Erythematous mucosa in the transverse colon. Biopsied. - Non-bleeding internal hemorrhoids. Recommendation: - My office will telephone with pathology results in 1-2 weeks - Repeat colonoscopy is recommended for surveillance. The colonoscopy date will be determined after pathology results from today's exam become available for review. - Continue present medications. Procedure Code(s): --- Professional --- 11658, Colonoscopy, flexible; with biopsy, single or multiple Diagnosis Code(s): --- Professional --- K92.2, Gastrointestinal hemorrhage, unspecified K63.89, Other specified diseases of intestine K64.8, Other hemorrhoids R19.7, Diarrhea, unspecified CPT copyright 2017 [employer]. All rights reserved. The codes documented in this report are preliminary and upon equipment analyst review may be revised to meet current compliance requirements. MD Leticia Deal MD 05/20/2020 2:24:28 PM This report has been signed electronically. Number of Addenda: 0 Note Initiated On: 05/20/2020 1:55 PM
== END 2020-05-20 14:57 | disposition home or self-care (01) ==
LOC: EN 12:12 → AC 12:13
PROVIDERS: Anesthesiology; PCP Internal Medicine; Referring Provider Internal Medicine; Visit Provider Surgery
PROC: 0DJD8ZZ Inspection of Lower Intestinal Tract, Via Natural or Artificial Opening Endoscopic (ICD-10-PCS; CPT 45378; principal; 2020-05-20 13:15)
DX: K29.51 Unspecified chronic gastritis with bleeding (principal); K92.2 Gastrointestinal hemorrhage, unspecified; K64.8 Other hemorrhoids; K44.9 Diaphragmatic hernia without obstruction or gangrene; F17.210 Nicotine dependence, cigarettes, uncomplicated; Z11.59 Encounter for screening for other viral diseases
CPT/HCPCS: 43239; 45380; 87635; 88305; 88342; 94799; J7120; U0003

== ENCOUNTER → 2020-09-05 17:33 | Outpatient (CLI) | payer MEDICAID, SELFPAY ==
[2020-05-20 12:30] VITALS: BMI 21.6
== END ==
PROVIDERS: PCP Internal Medicine; Referring Provider Internal Medicine; Visit Provider Internal Medicine
DX: Z20.828 Contact with and (suspected) exposure to other viral communicable diseases (principal)
CPT/HCPCS: 87635; C9803; U0003

== ENCOUNTER 2020-12-06 01:46 | Emergency (ER) | payer MEDICAID, SELFPAY ==
[2020-05-20 12:30] VITALS: BMI 21.6
[2020-12-06 01:47] VITALS: BP 113/88; PULSE 88; RESP 17; TEMP 36.2; O2SAT 100; BMI 20.7
[2020-12-06 01:53] VITALS: O2SAT 100
--- NOTE | 2020-12-06 02:09 | EKG12_ITS ---
Test Reason : CP Blood Pressure : / mmHG Vent. Rate : 092 BPM Atrial Rate : 092 BPM P-R Int : 170 ms QRS Dur : 076 ms QT Int : 362 ms P-R-T Axes : 079 057 055 degrees QTc Int : 447 ms Normal sinus rhythm Normal ECG Confirmed by KAREN EDWARDS, ORI ([id number]), photographic editor ROCHELLE JUNG ([id number]) on 12/08/2020 11:00:23 AM Referred By: BB Confirmed By:ORI JONES MD
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
[2020-12-06 02:14] LABS: Absolute Lymphocyte Count 3.28 X10^3/uL (0.83-4.51); Absolute Neutrophil Count 3.2 X10^3/uL (2.0-7.7); Basophil# 0.07 X10^3/uL; Basophil% 0.9 % (0-1); Eosinophil# 0.09 X10^3/uL; Eosinophils% 1.2 % (0-5); Hematocrit 36.6 % (37-47); Lymphocyte # 3.28 X10^3/ul (4.0); Lymphocyte % 43.5 % (19-41); Mean Corp Hgb Conc 32.8 g/dL (32-36); Mean Corpuscular Hgb 33.3 pg (27.0-32.0); Mean Corpuscular Volume 101.7 fL (81-99); Mean Platelet Vol. 9.4 fl (6.2-12.0); Monocyte# 0.92 X10^3/uL; Monocyte% 12.2 % (0-10); NRBC Flagged by Analyzer 0 % (0-5); Neutrophil # 3.15 X10^3/uL (2.7-7.7); Neutrophil % 41.8 % (47-70); Platelet Count 279 K/mm3 (150-450); RBC Distribution Width SD 52.3 fl (35.1-43.9); White Blood Count 7.5 K/mm3 (4.4-11.0)
--- NOTE | 2020-12-06 02:15 | RAD_ITS ---
STUDY: X-RAY CHEST REASON FOR EXAM: Female, 45 years old. chest pain since 8 PM tonight, pt c/o anxiety. TECHNIQUE: Single AP portable view of the chest. COMPARISON: 12/01/2019 FINDINGS: There are superimposed monitor leads. Table faint linear line left infrahilar parenchyma likely scarring, resolution of previous atelectasis and/or scarring in the right base. There is no demonstrated pleural abnormality. Normal size heart. Normal mediastinum and austen. Normal visualized pulmonary arteries. Normal visualized aortic arch and descending thoracic aorta. Normal visualized thoracic spine. Normal visualized ribs, clavicles, and shoulders. There is no demonstrated abnormality of the visualized soft tissue structures of the upper abdomen. RAD/Chest 1 View (Portable) IMPRESSION: No pulmonary edema, congestive heart failure or confluent pneumonia. Minimal scarring left infrahilar parenchyma appears stable. Electronically Signed: Allegra Randall MD at 2:53 EST , Service support ,
[2020-12-06] MEDS: Mag Hydrox/Al Hydrox/Simeth 30 ML UDC PO (02:25)
[2020-12-06 02:28] LABS: Anion Gap 9 (5-15); BUN 3 mg/dL (7-18); BUN/Creat Ratio 6.5 RATIO (10-20); Calcium,Total 8.6 mg/dL (8.5-10.1); Chloride 106 mmol/L (98-107); Creatinine, Serum 0.46 mg/dL (0.55-1.02); EST Glomerular Filtration Rate 155 mL/min (>60); Est Glom Filt Rate - Afr Amer 188 mL/min (>60); Estimated Creatinine Clearance 158.58 ml/min; Glucose 91 mg/dL (74-106); Sodium Level 137 mmol/L (136-145)
[2020-12-06] MEDS: Ketorolac 30 MG/ML Syringe IV (02:47)
== END 2020-12-06 02:54 | disposition home or self-care (01) ==
PROVIDERS: Emergency Provider Emergency Medicine; PCP Internal Medicine
DX: R07.89 Other chest pain (principal); F17.200 Nicotine dependence, unspecified, uncomplicated
CPT/HCPCS: 71045; 80048; 84484; 85025; 93005; 96374; 99285; A4216

== ENCOUNTER 2022-10-20 14:25 | Inpatient (IN) | payer MEDICAID, SELFPAY ==
[2022-10-20 14:33] VITALS: BP 119/65; PULSE 98; RESP 14; TEMP 35.7; O2SAT 98; BMI 24.3
[2022-10-20 16:24] LABS: Absolute Neutrophil Count 5.1 X10^3/uL (2.0-7.7); Basophil# 0.05 X10^3/uL; Basophil% 0.5 % (0-1); Eosinophil# 0.07 X10^3/uL; Eosinophils% 0.7 % (0-5); Hematocrit 41.9 % (37-47); Hemoglobin 14.1 g/dL (12.0-15.0); Lymphocyte % 36.4 % (19-41); Mean Corp Hgb Conc 33.7 g/dL (32-36); Mean Corpuscular Volume 92.1 fL (81-99); Mean Platelet Vol. 9.2 fl (6.2-12.0); Monocyte# 0.66 X10^3/uL; Monocyte% 7.1 % (0-10); NRBC Flagged by Analyzer 0 % (0-5); Neutrophil # 5.13 X10^3/uL (2.7-7.7); Platelet Count 282 K/mm3 (150-450); RBC Distribution Width CV 14.3 % (11.6-14.6); RBC Distribution Width SD 48.1 fl (35.1-43.9); Red Blood Count 4.55 M/mm3 (4.2-5.4); White Blood Count 9.3 K/mm3 (4.4-11.0)
[2022-10-20 16:34] LABS: Amphetamine Urine VISTA NEGATIVE (<1000 ng/mL); Barbiturate Urine VISTA NEGATIVE (< 200 ng/mL); Benzodiazepine Urine VISTA NEGATIVE (< 200 ng/mL); Cocaine Urine VISTA NEGATIVE (< 300 ng/mL); Ecstacy Urine VISTA NEGATIVE (< 500 ng/mL); Methadone Urine VISTA NEGATIVE (< 300 ng/mL); PCP Urine VISTA NEGATIVE (< 25 ng/mL); THC Urine VISTA NEGATIVE (< 50 ng/mL); Vista UDS pH Range 5
--- NOTE | 2022-10-20 16:38 | EDS_ITS ---
HPI History of Present Illness Chief Complaint: Substance Abuse Narrative Narrative: 47-year-old female with history of bipolar disorder, alcohol abuse, cirrhosis presenting for detox. She states that he was about 12 beers a day. There is a recent increase in this. Patient states that she has had a detox before. She reports a history of withdrawal seizures in the past. She states she initially starts getting shaky. She states she drank 5 beers today up until 2:00 when she came to the emergency room. Patient also reports that she has an upper respiratory tract infection. She was seen at the urgent care for this on Tuesday. She was tested for COVID and influenza and this was negative. PFSH PFSH Medical History Asthma Cirrhosis Depression GERD (gastroesophageal reflux disease) Hypertension Migraines PTSD (post-traumatic stress disorder) Scoliosis Smoker Home Medications albuterol sulfate 90 mcg/actuation aerosol inhaler 2 puff inhalation Q4H PRN PRN SOB 10/20/22 [History Last Taken 10/20/22] benzonatate 100 mg capsule 200 mg PO TID COUGH 10/20/22 [History Last Taken 10/17/22] dextroamphetamine-amphetamine 15 mg tablet 15 mg PO DAILY MOOD 10/20/22 [History Last Taken Unknown] gabapentin 300 mg capsule 300 mg PO QHS NERVE PAIN 10/20/22 [History Last Taken Unknown] trazodone 100 mg tablet 100 mg PO QHS SLEEP 10/20/22 [History Last Taken Unknown] Allergy/AdvReac Type Severity Reaction Status Date / Time diazepam [From Valium] Allergy Hives Verified 10/20/22 14:36 Penicillins Allergy Hives Verified 10/20/22 14:36 Surgical History History of appendectomy Social History (Updated 10/20/22 @ 18:[address] Elsa Hdz DO) Smoking Status: Current every day smoker tobacco type: cigarettes alcohol intake: current details: Drinks at least of case of 24 ounce beers daily substance use type: does not use ROS ROS ED Constitutional Constitutional ED: Denies fever(s) Eyes Eyes: Denies change in vision ENT ENT ED: Reports rhinorrhea Cardiovascular Cardiovascular: Denies chest pain or palpitations Respiratory/Chest Respiratory/Chest: Reports cough; Denies dyspnea or dyspnea on exertion Gastrointestinal Gastrointestinal: Denies abdominal pain, nausea or vomiting Genitourinary Genitourinary ED: Denies dysuria Musculoskeletal Musculoskeletal: Denies arthralgias, back pain or myalgias Integumentary Denies abscess Neurologic Neurologic: Denies headache(s) or paresthesias Psychiatric Psychiatric: Denies suicidal ideation or suicidal thoughts EXAM Physical Exam Const Vital Signs: 10/20/22 14:33 Temperature 96.2 F L Temperature Source Temporal Pulse Rate 98 Respiratory Rate 14 Blood Pressure 119/65 Blood Pressure Mean 83 Pulse Ox 98 Oxygen Delivery Method Room Air Positive well nourished General Appearance ED: Negative for pallor HEENT Reports moist mucous membranes atraumatic Eyes PERRL and EOMs intact bilaterally Resp normal respiratory effort and clear to auscultation bilaterally Auscultation: Negative for rales, rhonchi or wheezes Cardio regular rate and regular rhythm Neuro oriented x3 and CN's II-XII intact bilaterally Sensorium / Orientation: alert Motor Exam: strength 5/5 throughout Psych mental status grossly normal and thought process normal Skin General Skin Exam: Negative for jaundice or pallor MDM MDM MDM Narrative Medical decision making narrative: Patient presenting for detox from alcohol. She states her last drink was about 2 PM. She had about 5 beers today. She not currently feeling withdrawal symptoms. Blood work is obtained for medical clearance. CBC and CMP are unremarkable. Urine drug screen negative. EtOH is 278. I do not see a need to retest her for COVID and influenza since she was tested on Tuesday and this was 6 days ago and she has only little congestion. I did obtain chest x-ray to rule out pneumonia and on my interpretation there is no acute cardiopulmonary process. Radiology services agrees. Patient was discussed with the hospitalist for admission. Impression: 1. EtOH abuse 2. Presentation for EtOH detox 3. URI Lab Data Attestation: I reviewed the patient's lab results. Labs: Laboratory Results - last 24 hr 10/20/22 10/20/22 10/20/22 16:00 16:13 16:13 WBC 9.3 RBC 4.55 Hgb 14.1 Hct 41.9 MCV 92.1 MCH 31.0 MCHC 33.7 RDW Std Deviation 48.1 H RDW Coeff of Alok 14.3 Plt Count 282 MPV 9.2 Immature Gran % (Auto) 0.300 Neut % (Auto) 55.0 Lymph % (Auto) 36.4 [place] % (Auto) 7.1 Eos % (Auto) 0.7 Baso % (Auto) 0.5 Absolute Neuts (auto) 5.1 Absolute Lymphs (auto) 3.40 Nucleated RBC % 0 Sodium Potassium Chloride Carbon Dioxide Anion Gap BUN Creatinine Estim Creat Clear Calc Est GFR (MDRD) Af Amer Est GFR (MDRD) Non-Af BUN/Creatinine Ratio Glucose Calcium Total Bilirubin AST ALT Alkaline Phosphatase Total Protein Albumin Globulin Albumin/Globulin Ratio Serum , Qual Urine Opiates Screen NEGATIVE Urine Methadone Screen NEGATIVE Ur Barbiturates Screen NEGATIVE Ur Phencyclidine Scrn NEGATIVE Ur Amphetamines Screen NEGATIVE MDMA (Ecstasy) Screen NEGATIVE U Benzodiazepines Scrn NEGATIVE Urine Cocaine Screen NEGATIVE U Cannabinoids Screen NEGATIVE Ur Drug Screen Comment Ethyl Alcohol 278.0 10/20/22 10/20/22 16:13 16:13 WBC RBC Hgb Hct MCV MCH MCHC RDW Std Deviation RDW Coeff of Alok Plt Count MPV Immature Gran % (Auto) Neut % (Auto) Lymph % (Auto) [place] % (Auto) Eos % (Auto) Baso % (Auto) Absolute Neuts (auto) Absolute Lymphs (auto) Nucleated RBC % Sodium 138 Potassium 4.2 Chloride 105 Carbon Dioxide 26.0 Anion Gap 7 BUN 8 Creatinine 0.60 Estim Creat Clear Calc 123.74 Est GFR (MDRD) Af Amer 140 Est GFR (MDRD) Non-Af 116 BUN/Creatinine Ratio 13.4 Glucose 98 Calcium 8.6 Total Bilirubin 0.30 AST 33 ALT 28 Alkaline Phosphatase 119 H Total Protein 8.1 Albumin 3.6 Globulin 4.5 H Albumin/Globulin Ratio 0.8 L Serum , Qual NEGATIVE Urine Opiates Screen Urine Methadone Screen Ur Barbiturates Screen Ur Phencyclidine Scrn Ur Amphetamines Screen MDMA (Ecstasy) Screen U Benzodiazepines Scrn Urine Cocaine Screen U Cannabinoids Screen Ur Drug Screen Comment Ethyl Alcohol Radiography Diagnostic Testing: Clinical Impression(s) from Imaging Studies Chest X-Ray 10/20/22 16:55 IMPRESSION: No radiographic evidence of acute cardiopulmonary disease. Electronically Signed: Justus Robertson MD at 17:14 EST , Discharge Plan Disposition Disposition: Acute Care Hospital [facility] Discharge Date/Time: 10/20/22 18:41
--- NOTE | 2022-10-20 16:55 | RAD_ITS ---
EXAM: XR CHEST, 1 VIEW CLINICAL INDICATION: cough TECHNIQUE: Frontal view of the chest. This report was created using [employer] report generation technology. COMPARISON: 12/06/2020 FINDINGS: LUNGS AND PLEURAL SPACES: Unremarkable. No consolidation or edema. No pneumothorax. No effusion. HEART: Unremarkable. Cardiac silhouette not enlarged. MEDIASTINUM: Central airways and mediastinal contour are unremarkable. BONES/JOINTS: Unremarkable. SOFT TISSUES: Unremarkable. RAD/Chest 1 View (Portable) IMPRESSION: No radiographic evidence of acute cardiopulmonary disease. Electronically Signed: Justus Robertson MD at 17:14 EST ,
[2022-10-20 17:11] LABS: ALB/GLOB Ratio 0.8 RATIO (0.9-2.4); AST(SGOT) 33 U/L (15-37); Alanine Aminotransfer ALT/SGPT 28 U/L (13-56); Albumin, Serum 3.6 g/dL (3.2-5.0); Alkaline Phosphatase 119 U/L (45-117); Anion Gap 7 (5-15); BUN 8 mg/dL (7-18); BUN/Creat Ratio 13.4 RATIO (10-20); Calcium,Total 8.6 mg/dL (8.5-10.1); Chloride 105 mmol/L (98-107); EST Glomerular Filtration Rate 116 mL/min (>60); Est Glom Filt Rate - Afr Amer 140 mL/min (>60); Estimated Creatinine Clearance 123.74 ml/min; Globulin 4.5 g/dL (2.2-4.2); Glucose 98 mg/dL (74-106); Potassium 4.2 mmol/L (3.5-5.1); Protein, Total 8.1 g/dL (6.4-8.2); Sodium Level 138 mmol/L (136-145)
[2022-10-20 17:37] VITALS: BMI 23.9
[2022-10-20 17:44] LABS: Internal QC Validated? YES +Cl - CLEAR BKGD; Pregnancy, Serum, hCG Quali. NEGATIVE Negative
--- NOTE | 2022-10-20 18:12 | PCM.HP.STD ---
HPI - General General Date of Admission: 10/20/22 Date of Service: 10/20/22 Chief Complaint: Alcohol detox HPI Narrative FRANCESCO RANGEL, is a 47 F who presented to the emergency department [facility] on 10/20/2022 for detox. The patient states that she drinks 24 ounce beers probably a case a day. She reports that she was last sober about a year ago at which time she was sober for 10 months. She has had various periods throughout her life where she has been sober. She states she has been drinking for a long time. Her last drink was about 2 PM today and she had 524 ounce beers up until that point. She does note she has a history of cirrhosis related to alcohol use as well as bipolar disorder. Vital signs on presentation show temperature of 96.2, blood pressure 119/65, pulse rate 98, respiratory rate 14, pulse ox is 98% on room air. Her CBC is unremarkable. Chemistry panel is unremarkable. LFTs are normal. Urine is negative. Talk screen is negative. Alcohol level is 278. PFSH Medical History Asthma Cirrhosis Depression GERD (gastroesophageal reflux disease) Hypertension Migraines PTSD (post-traumatic stress disorder) Scoliosis Smoker Home Medications albuterol sulfate 90 mcg/actuation aerosol inhaler 2 puff inhalation Q4H PRN PRN SOB 10/20/22 [History Last Taken 10/20/22] benzonatate 100 mg capsule 200 mg PO TID COUGH 10/20/22 [History Last Taken 10/17/22] dextroamphetamine-amphetamine 15 mg tablet 15 mg PO DAILY MOOD 10/20/22 [History Last Taken Unknown] gabapentin 300 mg capsule 300 mg PO QHS NERVE PAIN 10/20/22 [History Last Taken Unknown] trazodone 100 mg tablet 100 mg PO QHS SLEEP 10/20/22 [History Last Taken Unknown] Allergy/AdvReac Type Severity Reaction Status Date / Time diazepam [From Valium] Allergy Hives Verified 10/20/22 14:36 Penicillins Allergy Hives Verified 10/20/22 14:36 no significant family history Surgical History History of appendectomy Social History (Updated 10/20/22 @ 18:[address] Elsa Hdz DO) Smoking Status: Current every day smoker tobacco type: cigarettes Smoking packs per day: 2 Smoking cigarettes per day: 40.0 alcohol intake: current details: Drinks at least of case of 24 ounce beers daily substance use type: does not use ROS Constitutional Constitutional: Denies anorexia, change in weight, chills, fatigue, fever(s), malaise, night sweats, weakness or other Eyes Eyes: Denies blurry vision, change in eye color, change in vision, discharge from eye(s), double vision, erythema, eye pain, loss of vision or other ENT HEENT: Reports nasal congestion; Denies abnormal hearing, dysphagia, ear pain, epistaxis, headache(s), hearing loss, nasal discharge, post nasal drip, sinus pressure, sore throat or other Cardiovascular Cardiovascular: Denies chest pain, claudication, dyspnea on exertion, edema, lightheadedness, orthopnea, palpitations, paroxysmal nocturnal dyspnea, rapid heart rate, syncope or other Respiratory/Chest Respiratory/Chest: Reports cough; Denies dyspnea, excessive phlegm production, hemoptysis, productive cough, shortness of breath at rest, shortness of breath with exertion, wheezing or other Gastrointestinal Gastrointestinal: Denies abdominal pain, coffee ground emesis, constipation, diarrhea, dyspepsia, hematemesis, hematochezia, loose stools, melena, nausea, vomiting or other Genitourinary Genitourinary: Denies burning urination, difficulty urinating, dysuria, hematuria, nocturia, urinary frequency, urinary hesitancy, urinary incontinence, urinary urgency or other Musculoskeletal Musculoskeletal: Reports back pain; Denies arthralgias, joint pain, joint stiffness, joint swelling, myalgias, neck pain or other Neurologic Neurologic: Denies abnormal gait, abnormal speech, confusion, disequilibrium, dizziness, focal weakness, headache(s), numbness, paresthesias, seizure-like activity, seizures, syncope, tingling, tremor(s) or other Psychiatric Psychiatric: Reports anxiety and depression; Denies homicidal ideation, suicidal ideation or other Endocrine Endocrinology: Denies change in body appearance, cold intolerance, excessive sweating, heat intolerance, polydipsia, polyuria or other Hematologic/Lymphatic Hematologic/Lymphatic: Denies anemia, easy bleeding, easy bruising, lymphadenopathy or other Allergic/Immunologic Allergic/Immunologic: Denies rhinitis, hives, eczemia, asthma or other Vital Signs Vital Signs Vital Signs: 10/20/22 14:33 Temperature 96.2 F L Temperature Source Temporal Pulse Rate 98 Respiratory Rate 14 Blood Pressure 119/65 Blood Pressure Mean 83 Pulse Ox 98 Oxygen Delivery Method Room Air Weight Weight: 74.843 kg Body Mass Index (BMI) 24.3 Results Lab / Micro Data Attestation: I reviewed the patient's lab results. Result Diagrams: 10/20/22 16:13 10/20/22 16:13 Labs: Laboratory Results - last 24 hr 10/20/22 16:00: Urine Opiates Screen NEGATIVE, Urine Methadone Screen NEGATIVE, Ur Barbiturates Screen NEGATIVE, Ur Phencyclidine Scrn NEGATIVE, Ur Amphetamines Screen NEGATIVE, MDMA (Ecstasy) Screen NEGATIVE, U Benzodiazepines Scrn NEGATIVE, Urine Cocaine Screen NEGATIVE, U Cannabinoids Screen NEGATIVE, Ur Drug Screen Comment 10/20/22 16:13: WBC 9.3, RBC 4.55, Hgb 14.1, Hct 41.9, MCV 92.1, MCH 31.0, MCHC 33.7, RDW Std Deviation 48.1 H, RDW Coeff of Alok 14.3, Plt Count 282, MPV 9.2, Immature Gran % (Auto) 0.300, Neut % (Auto) 55.0, Lymph % (Auto) 36.4, [place] % (Auto) 7.1, Eos % (Auto) 0.7, Baso % (Auto) 0.5, Absolute Neuts (auto) 5.1, Absolute Lymphs (auto) 3.40, Nucleated RBC % 0 10/20/22 16:13: Ethyl Alcohol 278.0 10/20/22 16:13: Serum , Qual NEGATIVE 10/20/22 16:13: Sodium 138, Potassium 4.2, Chloride 105, Carbon Dioxide 26.0, Anion Gap 7, BUN 8, Creatinine 0.60, Estim Creat Clear Calc 123.74, Est GFR (MDRD) Af Amer 140, Est GFR (MDRD) Non-Af 116, BUN/Creatinine Ratio 13.4, Glucose 98, Calcium 8.6, Total Bilirubin 0.30, AST 33, ALT 28, Alkaline Phosphatase 119 H, Total Protein 8.1, Albumin 3.6, Globulin 4.5 H, Albumin/Globulin Ratio 0.8 L Radiology Impression Chest X-Ray 10/20/22 16:55 IMPRESSION: No radiographic evidence of acute cardiopulmonary disease. Electronically Signed: Justus Robertson MD at 17:14 EST , Assessment & Plan Assessment/Plan (1) Alcohol withdrawal: (2) Alcoholism: (3) Tobacco abuse: (4) Flank pain: PLAN: Plan Alcohol abuse/acute alcohol withdrawal -Patient is a heavy drinker and drinks approximately 15 to 2024 ounce beers daily -Has had periods of sobriety with the most recent being approximately a year ago at which time she was sober for about 10 months -Has complications related to her alcohol use including cirrhosis -Start phenobarbital taper -As needed Ativan per [facility] protocol -Thiamine/folate -Supportive medications for symptoms related to withdrawal -180 consultation Right-sided flank pain -Patient is not having any dysuria and has chronic urinary frequency since she was young -We will check UA -Consider further imaging depending on UA results Cirrhosis related to alcohol abuse -No signs of decompensation -Patient takes no medications at baseline for this -Monitor clinically Suspected COPD -Continue home albuterol -Recommend tobacco cessation -Recommend outpatient follow-up with pulmonary medicine Tobacco abuse -Recommend cessation -Currently smokes 2 packs daily -Nicotine patch available Depression/PTSD/bipolar -Continue home medications Insomnia -Continue home trazodone -As needed melatonin DVT prophylaxis -Low risk -Early ambulation CODE STATUS -Full code Charges/Coding Visit Charges Inpatient E&M: 30120 Init Hosp L1
[2022-10-20 18:20] VITALS: BP 133/78; PULSE 89; RESP 18; TEMP 36.6; O2SAT 98; O2SAT 99
[2022-10-20 18:32] VITALS: BP 135/89; PULSE 81; RESP 15; TEMP 37.2; O2SAT 99
--- NOTE | 2022-10-20 18:41 | CM.ED ---
Social Work Telephone call to treatment navigator, no answer. voicemail left on confidential voicemail of patient admitting to [facility]. Deshawn Fernandez MSW, [facility]
[2022-10-20] MEDS: Acetaminophen 325 MG Tablet 650 MG PO (19:05)
[2022-10-20] MEDS: Phenobarbital 32.4 MG Tablet 64.8 MG PO ×2 (19:06→22:10)
[2022-10-20 19:20] LABS: Bacteria 0 SEEN /hpf (None Seen); Color, Urine Straw (Yellow); Glucose, Dipstick Normal (Normal); Ketone-Dipstick Negative (Negative); Leukocyte Esterase-Dipstick Negative /ul (Negative); Mucous, Urine 0 SEEN /hpf (<or=2+); Nitrite-Dipstick Negative (Negative); Occult Blood-Urine Negative /ul (Negative); Protein-Dipstick Negative (Negative); Red Blood Cells-Urine 0 SEEN /hpf (0-5); Squamous Epithelial Cells - UA 0 SEEN /hpf (5-10); Urine Bilirubin Dipstick Negative (Negative); Urine Clarity Clear (Clear); Urine Urobilinogen Normal (Normal); Urine pH 6.5 (5.0 - 8.0); White Blood Cells 0 SEEN /hpf (0-5)
[2022-10-20] MEDS: Benzonatate 100 MG Capsule 200 MG PO (22:09)
[2022-10-20] MEDS: hydrOXYzine PAM 25 MG Capsule 50 MG PO (22:09)
[2022-10-20] MEDS: traZODone 100 MG Tablet PO (22:09)
[2022-10-20] MEDS: Gabapentin 300 MG Capsule PO (22:10)
[2022-10-20] MEDS: MELATONIN 3 MG TABLET PO (22:10)
[2022-10-20 22:12] VITALS: BP 122/79; PULSE 90; RESP 18; TEMP 37.2; O2SAT 97
[2022-10-21] VITALS (7 sets, daily range): BP systolic 119–135; BP diastolic 78–90; PULSE 72–90; RESP 16–18; TEMP 36.8–37.3; O2SAT 92–99
[2022-10-21] MEDS: Phenobarbital 32.4 MG Tablet 64.8 MG PO ×6 (02:40→22:00)
[2022-10-21] MEDS: 0.9% Saline Lock 10 ML Syringe IV (02:41)
[2022-10-21] MEDS: Acetaminophen 325 MG Tablet 650 MG PO ×2 (02:47→11:12)
[2022-10-21] MEDS: Benzonatate 100 MG Capsule 200 MG PO ×3 (06:17→22:00)
--- NOTE | 2022-10-21 10:11 | PN.HOSP_ITS ---
Subjective Subjective Follow-up on acute alcohol withdrawal: Patient was seen and examined. Complains of generalized aches. No acute events overnight Objective Data Objective Data Vital Signs: Vital Signs Temp Pulse Resp BP Pulse Ox O2 Del Method 99 F 88 16 135/90 H 96 Room Air 10/21/22 10:09 10/21/22 10:09 10/21/22 10:09 10/21/22 10:09 10/21/22 10:09 10/21/22 10:09 Oxygen Delivery Method Room Air Weight: 73.482 kg Body Mass Index (BMI) 23.9 Intake & Output: Intake and Output for Last 24 Hours 10/19/22 10/20/22 10/21/22 23:59 23:59 23:59 Intake Total 940 / 940 Balance 940 / 940 Lab / Micro Data Result Diagrams: 10/20/22 16:13 10/20/22 16:13 Labs: Laboratory Results - last 24 hr 10/20/22 16:00: Urine Opiates Screen NEGATIVE, Urine Methadone Screen NEGATIVE, Ur Barbiturates Screen NEGATIVE, Ur Phencyclidine Scrn NEGATIVE, Ur Amphetamines Screen NEGATIVE, MDMA (Ecstasy) Screen NEGATIVE, U Benzodiazepines Scrn NEGATIVE, Urine Cocaine Screen NEGATIVE, U Cannabinoids Screen NEGATIVE, Ur Drug Screen Comment 10/20/22 16:00: Urine Color Straw, Urine Clarity Clear, Urine pH 6.5, Ur Specific [place] 1.010, Urine Protein Negative, Urine Glucose (UA) Normal, Urine Ketones Negative, Urine Occult Blood Negative, Urine Nitrite Negative, Urine Bilirubin Negative, Urine Urobilinogen Normal, Ur Leukocyte Esterase Negative, Urine RBC 0 SEEN, Urine WBC 0 SEEN, Ur Squamous Epith Cells 0 SEEN, Urine Bacte delphine 0 SEEN, Urine Mucus 0 SEEN 10/20/22 16:13: WBC 9.3, RBC 4.55, Hgb 14.1, Hct 41.9, MCV 92.1, MCH 31.0, MCHC 33.7, RDW Std Deviation 48.1 H, RDW Coeff of Alok 14.3, Plt Count 282, MPV 9.2, Immature Gran % (Auto) 0.300, Neut % (Auto) 55.0, Lymph % (Auto) 36.4, [place] % (Auto) 7.1, Eos % (Auto) 0.7, Baso % (Auto) 0.5, Absolute Neuts (auto) 5.1, Absolute Lymphs (auto) 3.40, Nucleated RBC % 0 10/20/22 16:13: Ethyl Alcohol 278.0 10/20/22 16:13: Serum , Qual NEGATIVE 10/20/22 16:13: Sodium 138, Potassium 4.2, Chloride 105, Carbon Dioxide 26.0, Anion Gap 7, BUN 8, Creatinine 0.60, Estim Creat Clear Calc 123.74, Est GFR (MDRD) Af Amer 140, Est GFR (MDRD) Non-Af 116, BUN/Creatinine Ratio 13.4, Glucose 98, Calcium 8.6, Total Bilirubin 0.30, AST 33, ALT 28, Alkaline Phosphatase 119 H, Total Protein 8.1, Albumin 3.6, Globulin 4.5 H, Albumin/Globulin Ratio 0.8 L Radiography Diagnostic Testing: Radiology Impression Chest X-Ray 10/20/22 16:55 IMPRESSION: No radiographic evidence of acute cardiopulmonary disease. Electronically Signed: Justus Robertson MD at 17:14 EST , Physical Exam Narrative Physical exam: General: Alert, Oriented x3, Cooperative HEENT: Atraumatic Oral: Moist Mucosa Neck: Supple Lungs: Clear to auscultation Cardiovascular: HS I+II, regular, no murmurs Abdomen: Bowel Sounds Present, Soft, Non Tender Extremities: No edema Skin: No rashes, No breakdown Neurological: Grossly intact Psych/Mental Status: Appropriate Assessment & Plan Assessment/Plan (1) Alcohol withdrawal: (2) Alcoholism: (3) Tobacco abuse: (4) Flank pain: PLAN: Plan 1. Acute alcohol withdrawal in a patient with known history of alcohol abuse Last CIWA score was 0, Continue on phenobarb taper, folic acid, multivitamin, and thiamine 2. Alcoholic liver cirrhosis, no signs of decompensation 3. Rest of her chronic medical conditions including depression/PTSD/bipolar/nicotine dependence/COPD, not in acute exacerbation Continue on Ativan withdrawal protocol, nicotine replacement 4. DVT prophylaxis?low risk, early mobilization recommended Charges/Coding Visit Charges Inpatient E&M: 77428 Subs Hosp L1
[2022-10-21] MEDS: Thiamine Hydrochloride 100 MG Tablet PO (10:17)
[2022-10-21] MEDS: Folic Acid 1 MG Tablet PO (10:17)
--- NOTE | 2022-10-21 11:42 | ADDICTION ---
This documentation writer met with PT to conduct ASAM, MSE, AUDIT assessments and to plan for d/c. PT A+Ox4 and participated actively. All assessments completed and placed in PT's chart. PT plans to f/u with individual counselor at [facility] for outpatient treatment services. PT did not indicate a need for transportation post d/c from [facility].
[2022-10-21] MEDS: traZODone 100 MG Tablet PO (21:59)
[2022-10-21] MEDS: Gabapentin 300 MG Capsule PO (22:00)
[2022-10-22] VITALS (7 sets, daily range): BP systolic 128–143; BP diastolic 76–93; PULSE 73–90; RESP 14–16; TEMP 36.6–37.3; O2SAT 97–98
[2022-10-22] MEDS: Phenobarbital 32.4 MG Tablet 64.8 MG PO ×6 (02:18→22:23)
[2022-10-22] MEDS: Folic Acid 1 MG Tablet PO (06:30)
[2022-10-22] MEDS: Thiamine Hydrochloride 100 MG Tablet PO (06:30)
[2022-10-22] MEDS: Benzonatate 100 MG Capsule 200 MG PO ×3 (06:30→22:23)
--- NOTE | 2022-10-22 11:37 | PN.HOSP_ITS ---
Subjective Subjective Follow-up on acute alcohol withdrawal: Patient was seen and examined. No acute events overnight. Denies fever or ch ills. Objective Data Objective Data Vital Signs: Vital Signs Temp Pulse Resp BP Pulse Ox O2 Del Method 97.9 F 73 16 143/90 H 98 Room Air 10/22/22 06:28 10/22/22 06:28 10/22/22 06:28 10/22/22 06:28 10/22/22 06:28 10/22/22 06:39 Oxygen Delivery Method Room Air Weight: 73.482 kg Body Mass Index (BMI) 23.9 Intake & Output: Intake and Output for Last 24 Hours 10/20/22 10/21/22 10/22/22 23:59 23:59 23:59 Intake Total 1540 / 1540 Balance 1540 / 1540 Lab / Micro Data Result Diagrams: 10/20/22 16:13 10/20/22 16:13 Physical Exam Narrative Physical exam: General: Alert, Oriented x3, Cooperative HEENT: Atraumatic Oral: Moist Mucosa Neck: Supple Lungs: Clear to auscultation Cardiovascular: HS I+II, regular, no murmurs Abdomen: Bowel Sounds Present, Soft, Non Tender Extremities: No edema Skin: No rashes, No breakdown Neurological: Grossly intact Psych/Mental Status: Appropriate Assessment & Plan Assessment/Plan (1) Alcohol withdrawal: (2) Alcoholism: (3) Tobacco abuse: (4) Flank pain: PLAN: Plan 1. Acute alcohol withdrawal in a patient with known history of alcohol abuse, improving Continue on phenobarb taper, folic acid, multivitamin, and thiamine 2. Alcoholic liver cirrhosis, no signs of decompensation 3. Rest of her chronic medical conditions including depression/PTSD/bipolar/nicotine dependence/COPD, not in acute exacerbation Continue on Ativan withdrawal protocol, nicotine replacement 4. DVT prophylaxis?low risk, early mobilization recommended Charges/Coding Visit Charges Inpatient E&M: 63901 Subs Hosp L1
[2022-10-22] MEDS: traZODone 100 MG Tablet PO (22:23)
[2022-10-22] MEDS: Gabapentin 300 MG Capsule PO (22:23)
[2022-10-22] MEDS: Acetaminophen 325 MG Tablet 650 MG PO (22:31)
[2022-10-23] MEDS: Phenobarbital 32.4 MG Tablet 64.8 MG PO ×2 (02:21→09:38)
[2022-10-23 03:00] VITALS: BP 121/79; PULSE 87; RESP 14; TEMP 36.3; O2SAT 98
[2022-10-23 03:01] VITALS: BP 121/75; PULSE 87; RESP 14; TEMP 36.3; O2SAT 98
[2022-10-23] MEDS: Benzonatate 100 MG Capsule 200 MG PO (05:36)
[2022-10-23 09:35] VITALS: BP 141/93; PULSE 74; RESP 16; TEMP 36.8; O2SAT 100
[2022-10-23] MEDS: Thiamine Hydrochloride 100 MG Tablet PO (09:38)
[2022-10-23] MEDS: Folic Acid 1 MG Tablet PO (09:38)
[2022-10-23 10:20] VITALS: O2SAT 96
--- NOTE | 2022-10-23 11:30 | DCINST_ITS ---
Discharge Instructions Diet Discharge Diet: No restrictions Activity Discharge Activity: Return to Normal Activity Follow Up Care Test Results: Test results from this visit will be discussed in further detail at your follow- up appointment, if applicable. Discharge Plan Admission Admit Date/Time: 10/20/22 18:05 Primary Reason for Your Visit: Acute alcohol withdrawal Attending Provider: Linda Bond Primary Care Provider: Ninoska Walsh Consulting Providers: Elsa Hdz Instructions Additional Instructions / Restrictions: You are strongly advised to avoid alcohol or use of any illicit drug. Follow-up with your outpatient rehab program as scheduled. Discharge Orders/Prescriptions Prescriptions: New nicotine 21 mg/24 hr Patch 24 Hour 21 mg transdermal DAILY 28 Days Qty: 28 0RF Continued trazodone 100 mg tablet 100 mg PO QHS Label Comments: take 1 tablet by mouth at bedtime if needed benzonatate 100 mg capsule 200 mg PO TID Label Comments: take 1 to 2 capsules by mouth three times a day if needed for cough dextroamphetamine-amphetamine 15 mg tablet 15 mg PO DAILY Label Comments: take 1 tablet by mouth once daily gabapentin 300 mg capsule 300 mg PO QHS Label Comments: take 1 capsule by mouth at bedtime albuterol sulfate 90 mcg/actuation HFA aerosol inhaler 2 puff INHALATION Q4H PRN PRN (Reason: SOB) Label Comments: inhale 2 puffs by mouth and INTO THE LUNGS every 4 hours if neede... (REFER TO PRESCRIPTION NOTES). Referrals / Follow Up: Ninoska Walsh MD [Primary Care Provider] - Within 1 Week Disposition Disposition (needs filled in before D/C Order can be placed): Home, Self Care
--- NOTE | 2022-10-23 11:36 | PCM.DC.SUM ---
Providers Date of Admission: 10/20/22 Date of Discharge: 10/23/22 Primary Care Physician: Dr. Ninoska Walsh MD Reason For Visit: OPIATE DETOX Diagnosis Discharge Diagnosis (1) Alcohol withdrawal: Status: Acute Code(s): F10.239 - Alcohol dependence with withdrawal, unspecified (2) Alcoholism: Status: Chronic Code(s): F10.20 - Alcohol dependence, uncomplicated (3) Tobacco abuse: Status: Acute Code(s): Z72.0 - Tobacco use (4) Flank pain: Status: Acute Code(s): R10.9 - Unspecified abdominal pain Plan 1. Acute alcohol withdrawal 2. Alcohol abuse 3. Alcoholic liver cirrhosis 4. Depression 5. PTSD 6. Bipolar disorder 7. Nicotine dependence 8. COPD Medications at Discharge Home Medications albuterol sulfate 90 mcg/actuation aerosol inhaler 2 puff inhalation Q4H PRN PRN SOB 10/20/22 benzonatate 100 mg capsule 200 mg PO TID COUGH 10/20/22 dextroamphetamine-amphetamine 15 mg tablet 15 mg PO DAILY MOOD 10/20/22 gabapentin 300 mg capsule 300 mg PO QHS NERVE PAIN 10/20/22 trazodone 100 mg tablet 100 mg PO QHS SLEEP 10/20/22 nicotine 21 mg/24 hr daily transdermal patch 21 mg transdermal DAILY 28 days #28 ea 10/23/22 Hospital Course Operations None Procedures None Summary of Care Provided Minutes Spent on Discharge: 25 Hospital Course: 47 year-old female history of chronic alcohol abuse who comes in requesting for medical stabilization from alcohol withdrawal. Patient drinks about 24 ounce beers a day. Her last drink was a few hours prior to admission. Her vitals were stable on admission. Her alcohol level was 278. [facility] and managed on a phenobarbital withdrawal protocol without any acute issues. She was seen by conditioning room worker. Patient will follow-up with 180 in the outpatient. On the day of discharge, patient was seen and examined. Denied any new complaint. She was discharged on nicotine patches. She needs to follow-up with her primary care doctor within 1 week. Physical Exam Narrative Physical exam: General: Alert, Oriented x3, Cooperative HEENT: Atraumatic Oral: Moist Mucosa Neck: Supple Lungs: Clear to auscultation Cardiovascular: HS I+II, regular, no murmurs Abdomen: Bowel Sounds Present, Soft, Non Tender Extremities: No edema Skin: No rashes, No breakdown Neurological: Grossly intact Psych/Mental Status: Appropriate Weight / BMI Weight Weight: 73.482 kg Body Mass Index (BMI) 23.9 ABG / Lab / Microbiology Data Result Diagrams: 10/20/22 16:13 10/20/22 16:13 D/C Instructions Discharge Diet: No restrictions Meaningful Use Info Meaningful Use Diagnoses (Choose all that apply): None applicable Discharge Plan Admission Admit Date/Time: 10/20/22 18:05 Primary Reason for Your Visit: Acute alcohol withdrawal Attending Provider: Linda Bond Primary Care Provider: Ninoska Walsh Consulting Providers: Elsa Hdz Instructions Additional Instructions / Restrictions: You are strongly advised to avoid alcohol or use of any illicit drug. Follow-up with your outpatient rehab program as scheduled. Discharge Orders/Prescriptions Prescriptions: New nicotine 21 mg/24 hr Patch 24 Hour 21 mg transdermal DAILY 28 Days Qty: 28 0RF Continued trazodone 100 mg tablet 100 mg PO QHS Label Comments: take 1 tablet by mouth at bedtime if needed benzonatate 100 mg capsule 200 mg PO TID Label Comments: take 1 to 2 capsules by mouth three times a day if needed for cough dextroamphetamine-amphetamine 15 mg tablet 15 mg PO DAILY Label Comments: take 1 tablet by mouth once daily gabapentin 300 mg capsule 300 mg PO QHS Label Comments: take 1 capsule by mouth at bedtime albuterol sulfate 90 mcg/actuation HFA aerosol inhaler 2 puff INHALATION Q4H PRN PRN (Reason: SOB) Label Comments: inhale 2 puffs by mouth and INTO THE LUNGS every 4 hours if neede... (REFER TO PRESCRIPTION NOTES). Referrals / Follow Up: Ninoska Walsh MD [Primary Care Provider] - Within 1 Week Disposition Disposition (needs filled in before D/C Order can be placed): Home, Self Care Charges/Coding Visit Charges Inpatient E&M: 78215 Disch Hosp
== END 2022-10-23 12:20 | disposition home or self-care (01) | DRG 772 ==
LOC: ED 16:23 → MS2 18:12
PROVIDERS: Admitting Provider Internal Medicine; Emergency Provider Student in an Organized Health Care Education/Training Program; PCP Internal Medicine; Visit Provider Internal Medicine
DX: F10.239 Alcohol dependence with withdrawal, unspecified (principal); F31.9 Bipolar disorder, unspecified; K70.30 Alcoholic cirrhosis of liver without ascites; J44.9 Chronic obstructive pulmonary disease, unspecified; I10 Essential (primary) hypertension; J06.9 Acute upper respiratory infection, unspecified; K21.9 Gastro-esophageal reflux disease without esophagitis; F17.210 Nicotine dependence, cigarettes, uncomplicated; F43.10 Post-traumatic stress disorder, unspecified; Y90.8 Blood alcohol level of 240 mg/100 ml or more; Z79.899 Other long term (current) drug therapy; G47.00 Insomnia, unspecified
CPT/HCPCS: 71045; 80053; 80307; 81001; 82077; 84703; 85025; 94668; 99252; 99283; A4216; G0463

== ENCOUNTER 2023-02-11 16:45 | Emergency (ER) | payer MEDICAID, SELFPAY ==
[2023-02-11 16:46] VITALS: BP 122/84; PULSE 115; RESP 18; TEMP 35.7; O2SAT 97; BMI 22.3
--- NOTE | 2023-02-11 18:32 | EX.ED.SAOD ---
HPI History of Present Illness Chief Complaint: Substance Abuse Narrative Narrative: Patient initially presented for alcohol detox. Protocol orders were put in the computer. Upon arrival to the room patient had eloped. PFSH PFSH Medical History Asthma Cirrhosis Depression GERD (gastroesophageal reflux disease) Hypertension Migraines PTSD (post-traumatic stress disorder) Scoliosis Smoker Home Medications albuterol sulfate 90 mcg/actuation aerosol inhaler 2 puff inhalation Q4H PRN PRN SOB 10/20/22 [History Last Taken 10/20/22] benzonatate 100 mg capsule 200 mg PO TID COUGH 10/20/22 [History Last Taken 10/17/22] dextroamphetamine-amphetamine 15 mg tablet 15 mg PO DAILY MOOD 10/20/22 [History Last Taken Unknown] gabapentin 300 mg capsule 300 mg PO QHS NERVE PAIN 10/20/22 [History Last Taken Unknown] trazodone 100 mg tablet 100 mg PO QHS SLEEP 10/20/22 [History Last Taken Unknown] nicotine 21 mg/24 hr daily transdermal patch 21 mg transdermal DAILY 28 days #28 ea 10/23/22 [Rx Last Taken Unknown] Allergy/AdvReac Type Severity Reaction Status Date / Time diazepam [From Valium] Allergy Hives Verified 02/11/23 16:47 Penicillins Allergy Hives Verified 02/11/23 16:47 Surgical History History of appendectomy Social History (Updated 10/20/22 @ 18:[address] Elsa Hdz DO) Smoking Status: Current every day smoker tobacco type: cigarettes alcohol intake: current details: Drinks at least of case of 24 ounce beers daily substance use type: does not use EXAM Physical Exam Const Vital Signs: 02/11/23 16:46 Temperature 96.2 F L Temperature Source Temporal Pulse Rate 115 H Respiratory Rate 18 Blood Pressure 122/84 H Blood Pressure Mean 96 Pulse Ox 97 Oxygen Delivery Method Room Air Discharge Plan Triage Chief Complaint: Substance Abuse ED Provider: Wilbur Baker Dx/Rx/DC Orders Prescriptions: No Action trazodone 100 mg tablet 100 mg PO QHS Label Comments: take 1 tablet by mouth at bedtime if needed benzonatate 100 mg capsule 200 mg PO TID Label Comments: take 1 to 2 capsules by mouth three times a day if needed for cough dextroamphetamine-amphetamine 15 mg tablet 15 mg PO DAILY Label Comments: take 1 tablet by mouth once daily gabapentin 300 mg capsule 300 mg PO QHS Label Comments: take 1 capsule by mouth at bedtime albuterol sulfate 90 mcg/actuation HFA aerosol inhaler 2 puff INHALATION Q4H PRN PRN (Reason: SOB) Label Comments: inhale 2 puffs by mouth and INTO THE LUNGS every 4 hours if neede... (REFER TO PRESCRIPTION NOTES). nicotine 21 mg/24 hr Patch 24 Hour 21 mg transdermal DAILY 28 Days Qty: 28 0RF Primary Care Provider: Ninoska Walsh Referrals: Ninoska Walsh MD [Primary Care Provider] -
--- NOTE | 2023-02-11 18:34 | ED.RN ---
pt stating she was leaving. pt left department with family member.
== END 2023-02-11 18:00 | disposition left against medical advice (07) ==
LOC: ED 18:51
PROVIDERS: Emergency Provider Student in an Organized Health Care Education/Training Program; PCP Internal Medicine; Visit Provider Student in an Organized Health Care Education/Training Program
DX: F19.19 Other psychoactive substance abuse with unspecified psychoactive substance-induced disorder (principal); I10 Essential (primary) hypertension; J45.909 Unspecified asthma, uncomplicated; F17.210 Nicotine dependence, cigarettes, uncomplicated

== ENCOUNTER 2023-02-12 12:51 | Inpatient (IN) | payer MEDICAID, SELFPAY ==
[2023-02-12 12:53] VITALS: BP 121/84; PULSE 132; RESP 16; TEMP 36.7; O2SAT 99; BMI 22.3
--- NOTE | 2023-02-12 13:18 | EDS_ITS ---
HPI <FERMIN Kumar - Last Filed: 02/12/23 14:37> History of Present Illness Chief Complaint: Substance Abuse Narrative Narrative: Patient is a 47-year-old female with history of anxiety, depression, difficulty sleeping, tobacco use, alcoholism who presents to the emergency department for alcohol withdrawal, alcohol detox treatment. Patient has been alcoholic since she was 27 years old. Patient has been to rehabilitation many times. Her longest time of not drinking is greater than 1 year, she was sober for 10 months earlier in the year of 2021, she started drinking April 2022 has been drinking 6 to 824 ounce cans of beer daily. She also smokes 1.5 packs of cigarettes daily. Patient states she is here today because of her daughter asking her to, as well as having difficulty with shaking and withdrawal symptoms. Patient's last drink was 3 hours prior to arrival. She states that she usually does shake later in the day. She denies any illicit drug use. She denies any suicidal homicidal ideation. Patient currently does work at a hotel. She has been to this facility before for rehabilitation and did state the entire time. PFSH <FERMIN Kumar - Last Filed: 02/12/23 14:37> PFSH Medical History Asthma Cirrhosis Depression GERD (gastroesophageal reflux disease) Hypertension Migraines PTSD (post-traumatic stress disorder) Scoliosis Smoker Home Medications albuterol sulfate 90 mcg/actuation aerosol inhaler 2 puff inhalation Q4H PRN PRN SOB 10/20/22 [History Last Taken 10/20/22] benzonatate 100 mg capsule 200 mg PO TID COUGH 10/20/22 [History Last Taken 10/17/22] dextroamphetamine-amphetamine 15 mg tablet 15 mg PO DAILY MOOD 10/20/22 [History Last Taken Unknown] gabapentin 300 mg capsule 300 mg PO QHS NERVE PAIN 10/20/22 [History Last Taken Unknown] trazodone 100 mg tablet 100 mg PO QHS SLEEP 10/20/22 [History Last Taken Unknown] nicotine 21 mg/24 hr daily transdermal patch 21 mg transdermal DAILY 28 days #28 ea 10/23/22 [Rx Last Taken Unknown] Allergy/AdvReac Type Severity Reaction Status Date / Time diazepam [From Valium] Allergy Hives Verified 02/12/23 12:56 Penicillins Allergy Hives Verified 02/12/23 12:56 Surgical History History of appendectomy Social History Smoking Status: Current every day smoker tobacco type: cigarettes alcohol intake: current details: Drinks at least of case of 24 ounce beers daily substance use type: does not use ROS <FERMIN Kumar - Last Filed: 02/12/23 14:37> ROS ED ROS Narrative Constitutional: Negative for fever, chills, weight loss,. Positive generalized weakness, fatigue Eyes: Negative for vision loss, vision change, double vision ENT: Negative for any sore throat, ear pain, congestion Cardiovascular: Negative for any chest pain, tightness, palpitations Respiratory: Negative for any cough, sputum production, hemoptysis, dyspnea, dyspnea on exertion, orthopnea Gastrointestinal: Negative for any abdominal pain, diarrhea, constipation, blood in stool, blood in vomit. Positive for nausea and vomiting : Negative for any urinary frequency, dysuria, retention, blood in urine Muscle skeletal: Negative for any muscle joint pain, stiffness, arthralgias, neck pain, back pain. Positive generalized myalgias Neurological: Negative for any headache, syncope, numbness or tingling, dizziness. Positive for feeling of extremity shaking, feeling of uneasiness. Skin: Negative for any rashes, lumps, itching, abrasions, lacerations Psychiatric: Negative for any depression, anxiety, stress, suicidal ideation, homicidal ideation Hematologic: Negative for any easy bruising, excessive bruising, easy bleeding Allergies: Negative for any eczema, hives, rash EXAM <FERMIN Kumar - Last Filed: 02/12/23 14:37> Physical Exam Narrative Exam Narrative: Vital signs reviewed. Patient does smell of alcohol however patient is acting appropriate. Patient is in no respiratory distress. HEET: Head normocephalic atraumatic, TMs clear bilaterally. Posterior pharynx is clear, dry mucous membranes. Nares clear bilaterally. Neck: Supple with no lymphadenopathy or tenderness. No signs of meningismus, negative jolt sign. Cardiac: Regular rate and rhythm no murmurs gallops or rubs, equal peripheral pulses bilaterally. Respiratory: Lungs clear to auscultation bilaterally. No chest tenderness. Abdomen: Soft, nontender, nondistended. No abdominal bruit or pulsatile masses. No hepatosplenomegaly Extremities: No peripheral edema, no signs of gross trauma or deformity. Active full range of motion of all extremities. Neuro: Cranial nerves II through XII intact, no focal neurological deficits. Patient when holding her hands up does have some slight shaking however patient is able perform easy task. Skin: Clean dry and intact with no rash, purpura, petechiae, vesicles or pustules. Backs/flank: No CVA tenderness, no midline spinal tenderness, no deformity. Psych: Normal mood and affect. No SI, HI or acute psychosis. Const Vital Signs: 02/12/23 12:53 Temperature 98.0 F Temperature Source Temporal Pulse Rate 132 H Respiratory Rate 16 Blood Pressure 121/84 H Blood Pressure Mean 96 Pulse Ox 99 Oxygen Delivery Method Room Air Positive well nourished and well developed General Appearance ED: well developed <Dr. Juan C Oden MD - Last Filed: 02/12/23 14:39> Physical Exam Const Vital Signs: 02/12/23 12:53 Temperature 98.0 F Temperature Source Temporal Pulse Rate 132 H Respiratory Rate 16 Blood Pressure 121/84 H Blood Pressure Mean 96 Pulse Ox 99 Oxygen Delivery Method Room Air MDM <FERMIN Kumar - Last Filed: 02/12/23 14:37> MDM Lab Data Labs: Laboratory Results - last 24 hr 02/12/23 02/12/23 02/12/23 13:32 13:32 13:32 WBC 5.9 RBC 3.67 L Hgb 13.2 Hct 37.9 MCV 103.3 H MCH 36.0 H MCHC 34.8 RDW Std Deviation 56.3 H RDW Coeff of Alok 14.8 H Plt Count 228 MPV 9.7 Immature Gran % (Auto) 0.200 Neut % (Auto) 40.8 L Lymph % (Auto) 46.1 H [place] % (Auto) 7.3 Eos % (Auto) 4.1 Baso % (Auto) 1.5 H Absolute Neuts (auto) 2.4 Absolute Lymphs (auto) 2.72 Nucleated RBC % 0 Sodium 138 Potassium 3.4 L Chloride 110 H Carbon Dioxide 20.0 L Anion Gap 8 BUN 3 L Creatinine 0.62 Estim Creat Clear Calc 119.75 Est GFR (MDRD) Af Amer 133 Est GFR (MDRD) Non-Af 110 BUN/Creatinine Ratio 4.8 L Glucose 103 Calcium 8.3 L Serum , Qual Urine Color Urine Clarity Urine pH Ur Specific [place] Urine Protein Urine Glucose (UA) Urine Ketones Urine Occult Blood Urine Nitrite Urine Bilirubin Urine Urobilinogen Ur Leukocyte Esterase Urine RBC Urine WBC Ur Squamous Epith Cells Urine Bacteria Urine Mucus Urine Opiates Screen Urine Methadone Screen Ur Barbiturates Screen Ur Phencyclidine Scrn Ur Amphetamines Screen MDMA (Ecstasy) Screen U Benzodiazepines Scrn Urine Cocaine Screen U Cannabinoids Screen Ur Drug Screen Comment Ethyl Alcohol 183.0 02/12/23 02/12/23 02/12/23 13:32 13:32 13:32 WBC RBC Hgb Hct MCV MCH MCHC RDW Std Deviation RDW Coeff of Alok Plt Count MPV Immature Gran % (Auto) Neut % (Auto) Lymph % (Auto) [place] % (Auto) Eos % (Auto) Baso % (Auto) Absolute Neuts (auto) Absolute Lymphs (auto) Nucleated RBC % Sodium Potassium Chloride Carbon Dioxide Anion Gap BUN Creatinine Estim Creat Clear Calc Est GFR (MDRD) Af Amer Est GFR (MDRD) Non-Af BUN/Creatinine Ratio Glucose Calcium Serum , Qual NEGATIVE Urine Color Yellow Urine Clarity Clear Urine pH 5.0 Ur Specific [place] 1.020 Urine Protein 15 H Urine Glucose (UA) Normal Urine Ketones 5 H Urine Occult Blood Negative Urine Nitrite Negative Urine Bilirubin Negative Urine Urobilinogen Normal Ur Leukocyte Esterase 25 H Urine RBC 0 SEEN Urine WBC 0 SEEN Ur Squamous Epith Cells 0 SEEN Urine Bacteria 0 SEEN Urine Mucus 0 SEEN Urine Opiates Screen NEGATIVE Urine Methadone Screen NEGATIVE Ur Barbiturates Screen NEGATIVE Ur Phencyclidine Scrn NEGATIVE Ur Amphetamines Screen NEGATIVE MDMA (Ecstasy) Screen NEGATIVE U Benzodiazepines Scrn NEGATIVE Urine Cocaine Screen NEGATIVE U Cannabinoids Screen NEGATIVE Ur Drug Screen Comment Ethyl Alcohol Treatment and Re-Evaluation :: Patient appears generally well, patient appears nontoxic, vital signs are stable. Patient is tachycardic, EKG was completed. EKG did show a heart rate of 98 bpm. Patient received basic laboratory values, 1 mg of Ativan as well as Zofran as well as normal saline. Once laboratory is included, the plan is to admit the patient for alcohol withdrawal, detox. Patient responded well to treatment,Patient remains stable, patient's laboratory values show a normal CBC, patient's chemistries were unremarkable. Patient's urinalysis was negative for infection. Patient had no illicit drug use. Patient's alcohol today is 183. Overall patient doing well. I spoke with the hospitalist, Dr. Hdz, she will admit this patient. Patient stable for admission. <Dr. Juan C Oden MD - Last Filed: 02/12/23 14:39> [facility] Lab Data Attestation: I reviewed the patient's lab results. Labs: Laboratory Results - last 24 hr 02/12/23 02/12/23 02/12/23 13:32 13:32 13:32 WBC 5.9 RBC 3.67 L Hgb 13.2 Hct 37.9 MCV 103.3 H MCH 36.0 H MCHC 34.8 RDW Std Deviation 56.3 H RDW Coeff of Alok 14.8 H Plt Count 228 MPV 9.7 Immature Gran % (Auto) 0.200 Neut % (Auto) 40.8 L Lymph % (Auto) 46.1 H [place] % (Auto) 7.3 Eos % (Auto) 4.1 Baso % (Auto) 1.5 H Absolute Neuts (auto) 2.4 Absolute Lymphs (auto) 2.72 Nucleated RBC % 0 Sodium 138 Potassium 3.4 L Chloride 110 H Carbon Dioxide 20.0 L Anion Gap 8 BUN 3 L Creatinine 0.62 Estim Creat Clear Calc 119.75 Est GFR (MDRD) Af Amer 133 Est GFR (MDRD) Non-Af 110 BUN/Creatinine Ratio 4.8 L Glucose 103 Calcium 8.3 L Serum , Qual Urine Color Urine Clarity Urine pH Ur Specific [place] Urine Protein Urine Glucose (UA) Urine Ketones Urine Occult Blood Urine Nitrite Urine Bilirubin Urine Urobilinogen Ur Leukocyte Esterase Urine RBC Urine WBC Ur Squamous Epith Cells Urine Bacteria Urine Mucus Urine Opiates Screen Urine Methadone Screen Ur Barbiturates Screen Ur Phencyclidine Scrn Ur Amphetamines Screen MDMA (Ecstasy) Screen U Benzodiazepines Scrn Urine Cocaine Screen U Cannabinoids Screen Ur Drug Screen Comment Ethyl Alcohol 183.0 02/12/23 02/12/23 02/12/23 13:32 13:32 13:32 WBC RBC Hgb Hct MCV MCH MCHC RDW Std Deviation RDW Coeff of Alok Plt Count MPV Immature Gran % (Auto) Neut % (Auto) Lymph % (Auto) [place] % (Auto) Eos % (Auto) Baso % (Auto) Absolute Neuts (auto) Absolute Lymphs (auto) Nucleated RBC % Sodium Potassium Chloride Carbon Dioxide Anion Gap BUN Creatinine Estim Creat Clear Calc Est GFR (MDRD) Af Amer Est GFR (MDRD) Non-Af BUN/Creatinine Ratio Glucose Calcium Serum , Qual NEGATIVE Urine Color Yellow Urine Clarity Clear Urine pH 5.0 Ur Specific [place] 1.020 Urine Protein 15 H Urine Glucose (UA) Normal Urine Ketones 5 H Urine Occult Blood Negative Urine Nitrite Negative Urine Bilirubin Negative Urine Urobilinogen Normal Ur Leukocyte Esterase 25 H Urine RBC 0 SEEN Urine WBC 0 SEEN Ur Squamous Epith Cells 0 SEEN Urine Bacteria 0 SEEN Urine Mucus 0 SEEN Urine Opiates Screen NEGATIVE Urine Methadone Screen NEGATIVE Ur Barbiturates Screen NEGATIVE Ur Phencyclidine Scrn NEGATIVE Ur Amphetamines Screen NEGATIVE MDMA (Ecstasy) Screen NEGATIVE U Benzodiazepines Scrn NEGATIVE Urine Cocaine Screen NEGATIVE U Cannabinoids Screen NEGATIVE Ur Drug Screen Comment Ethyl Alcohol Treatment and Re-Evaluation Comments:: I have personally performed a face to face assessment of the patient and have reviewed the LISA Note. I performed a substantive portion of the visit including all aspects of the following. My alcazar findings include: History: Patient presents for detox. This is from alcohol. She drinks anywhere from 2-10 or more 24 ounce beers a day. She states if she drinks just to she starts going through withdrawal. Her last drink was about 3 hours ago. No narcotics. She has been through detox several times in the past and including in October. After October she was dry for about weeks. She denies feeling like she is in withdrawal now. Exam: Patient awake alert cooperative. Moist mucous membranes. Eyes show no icterus. Lungs are clear. Heart is regular and does not seem to be tachycardic like when she came in. She states she was nervous. Abdomen is nontender. Medical Decision Making: We will contact hospitalist regarding admission for detox. Discharge Plan Dx/Rx/DC Orders Clinical Impression: Alcohol abuse, Alcohol intoxication Disposition Disposition: Acute Care Hospital [facility]
[2023-02-12] MEDS: Ondansetron 4 MG/2 ML Vial IV (13:29)
[2023-02-12] MEDS: 0.9% Normal Saline 1,000 ML 999 ML IV (13:29)
[2023-02-12] MEDS: LORazepam 2 MG/ML Syringe 1 MG IV (13:29)
[2023-02-12 13:44] LABS: Bacteria 0 SEEN /hpf (None Seen); Mucous, Urine 0 SEEN /hpf (<or=2+); Red Blood Cells-Urine 0 SEEN /hpf (0-5); Squamous Epithelial Cells - UA 0 SEEN /hpf (5-10); White Blood Cells 0 SEEN /hpf (0-5)
[2023-02-12 13:46] LABS: Absolute Lymphocyte Count 2.72 X10^3/uL (0.83-4.51); Absolute Neutrophil Count 2.4 X10^3/uL (2.0-7.7); Basophil# 0.09 X10^3/uL; Basophil% 1.5 % (0-1); Eosinophil# 0.24 X10^3/uL; Eosinophils% 4.1 % (0-5); Hematocrit 37.9 % (37-47); Hemoglobin 13.2 g/dL (12.0-15.0); Lymphocyte # 2.72 X10^3/ul (0.83-4.51); Lymphocyte % 46.1 % (19-41); Mean Corp Hgb Conc 34.8 g/dL (32-36); Mean Corpuscular Volume 103.3 fL (81-99); Mean Platelet Vol. 9.7 fl (6.2-12.0); Monocyte# 0.43 X10^3/uL; Monocyte% 7.3 % (0-10); NRBC Flagged by Analyzer 0 % (0-5); Neutrophil # 2.41 X10^3/uL (2.7-7.7); Neutrophil % 40.8 % (47-70); Platelet Count 228 K/mm3 (150-450); RBC Distribution Width CV 14.8 % (11.6-14.6); RBC Distribution Width SD 56.3 fl (35.1-43.9); Red Blood Count 3.67 M/mm3 (4.2-5.4); White Blood Count 5.9 K/mm3 (4.4-11.0)
[2023-02-12 14:04] LABS: Amphetamine Urine VISTA NEGATIVE (<1000 ng/mL); Barbiturate Urine VISTA NEGATIVE (< 200 ng/mL); Benzodiazepine Urine VISTA NEGATIVE (< 200 ng/mL); Cocaine Urine VISTA NEGATIVE (< 300 ng/mL); Ecstacy Urine VISTA NEGATIVE (< 500 ng/mL); Methadone Urine VISTA NEGATIVE (< 300 ng/mL); PCP Urine VISTA NEGATIVE (< 25 ng/mL); THC Urine VISTA NEGATIVE (< 50 ng/mL); Vista UDS pH Range 5
[2023-02-12 14:07] LABS: Color, Urine Yellow (Yellow); Glucose, Dipstick Normal (Normal); Ketone-Dipstick 5 mg/dl (Negative); Leukocyte Esterase-Dipstick 25 /ul (Negative); Nitrite-Dipstick Negative (Negative); Occult Blood-Urine Negative /ul (Negative); Protein-Dipstick 15 mg/dl (Negative); Urine Bilirubin Dipstick Negative (Negative); Urine Clarity Clear (Clear); Urine Urobilinogen Normal (Normal)
[2023-02-12 14:12] LABS: Internal QC Validated? YES +Cl - CLEAR BKGD; Pregnancy, Serum, hCG Quali. NEGATIVE Negative
[2023-02-12 14:25] LABS: Anion Gap 8 (5-15); BUN 3 mg/dL (7-18); BUN/Creat Ratio 4.8 RATIO (10-20); Calcium,Total 8.3 mg/dL (8.5-10.1); Chloride 110 mmol/L (98-107); Creatinine, Serum 0.62 mg/dL (0.55-1.02); EST Glomerular Filtration Rate 110 mL/min (>60); Est Glom Filt Rate - Afr Amer 133 mL/min (>60); Estimated Creatinine Clearance 119.75 ml/min; Glucose 103 mg/dL (74-106); Potassium 3.4 mmol/L (3.5-5.1); Sodium Level 138 mmol/L (136-145)
--- NOTE | 2023-02-12 14:25 | HP.PCM.HOS_ITS ---
HPI - General General Date of Admission: 02/12/23 Date of Service: 02/12/23 Chief Complaint: Requesting EtOH Detox HPI Narrative FRANCESCO RANGEL, is a 47 F who presented to the emergency minute [facility] on 02/12/2023 requesting detox. She presented yesterday but eloped prior to being seen as ER was very busy and she felt that there were people who are more ill than she was and she could return today. Returns today requesting admission. She was admitted in early October of this year and states she was sober for approximately a month following but began the drink because of elevated stress in her life. She came yesterday with her sponsor and is adamant that she does not want to drink anymore. She is currently drinking 5 to 6 24 ounce beers daily and has been doing so for the last 2 to 3 months. Her last drink was about 3 hours prior to presentation the emergency department. She currently is having a little bit of nausea, mild tremor and anxiety. Vital signs on presentation demonstrated temperature of 98.1, blood pressure 126/88, heart rate 106, respiratory rate 18, oxygen saturations are 96% room air. CBC is unremarkable. Chemistry panel shows mild hypokalemia with potassium of 3.4 but otherwise unremarkable. Urine test is negative. Her UA is unremarkable. Urgency department she was given some Ativan and request for admission was made. [facility] Medical History Asthma Cirrhosis Depression GERD (gastroesophageal reflux disease) Hypertension Migraines PTSD (post-traumatic stress disorder) Scoliosis Smoker Home Medications albuterol sulfate 90 mcg/actuation aerosol inhaler 2 puff inhalation Q4H PRN PRN SOB 10/20/22 [History Last Taken 10/20/22] benzonatate 100 mg capsule 200 mg PO TID PRN Cough 10/20/22 [History Last Taken 10/17/22] dextroamphetamine-amphetamine 15 mg tablet 15 mg PO DAILY MOOD 10/20/22 [History Last Taken Unknown] gabapentin 300 mg capsule 300 mg PO QHS NERVE PAIN 10/20/22 [History Last Taken Unknown] trazodone 100 mg tablet 100 mg PO QHS SLEEP 10/20/22 [History Last Taken Unknown] pantoprazole 40 mg tablet,delayed release 40 mg PO DAILY gerd 02/12/23 [History Last Taken Unknown] venlafaxine 75 mg capsule,extended release 24 hr 75 mg PO DAILY depression 02/12/23 [History Last Taken Unknown] Allergy/AdvReac Type Severity Reaction Status Date / Time diazepam [From Valium] Allergy Hives Verified 02/12/23 12:56 Penicillins Allergy Hives Verified 02/12/23 12:56 no significant family history Surgical History History of appendectomy Social History (Updated 02/12/23 @ 16:[address] Elsa Hdz DO) household members: family housing: house Smoking Status: Current every day smoker tobacco type: cigarettes Tobacco: How many years used: 40 alcohol intake: current details: Drinks 6-8 of 24 ounce beers daily substance use type: does not use ROS Constitutional Constitutional: Denies anorexia, change in weight, chills, fatigue, fever(s), malaise, night sweats, weakness or other Eyes Eyes: Denies blurry vision, change in eye color, change in vision, discharge from eye(s), double vision, erythema, eye pain, loss of vision or other ENT HEENT: Denies abnormal hearing, dysphagia, ear pain, epistaxis, headache(s), hearing loss, nasal congestion, nasal discharge, post nasal drip, sinus pressure, sore throat or other Cardiovascular Cardiovascular: Denies chest pain, claudication, dyspnea on exertion, edema, lightheadedness, orthopnea, palpitations, paroxysmal nocturnal dyspnea, rapid heart rate, syncope or other Respiratory/Chest Respiratory/Chest: Denies cough, dyspnea, excessive phlegm production, hemoptysis, productive cough, shortness of breath at rest, shortness of breath with exertion, wheezing or other Gastrointestinal Gastrointestinal: Reports nausea; Denies abdominal pain, coffee ground emesis, constipation, diarrhea, dyspepsia, hematemesis, hematochezia, loose stools, melena, vomiting or other Genitourinary Genitourinary: Denies burning urination, difficulty urinating, dysuria, hematuria, nocturia, urinary frequency, urinary hesitancy, urinary incontinence, urinary urgency or other Musculoskeletal Musculoskeletal: Denies arthralgias, back pain, joint pain, joint stiffness, joint swelling, myalgias, neck pain or other Neurologic Neurologic: Denies abnormal gait, abnormal speech, confusion, disequilibrium, dizziness, focal weakness, headache(s), numbness, paresthesias, seizure-like activity, seizures, syncope, tingling, tremor(s) or other Psychiatric Psychiatric: Reports anxiety and depression Endocrine Endocrinology: Denies change in body appearance, cold intolerance, excessive sweating, heat intolerance, polydipsia, polyuria or other Hematologic/Lymphatic Hematologic/Lymphatic: Denies anemia, easy bleeding, easy bruising, lymphadenopathy or other Allergic/Immunologic Allergic/Immunologic: Denies rhinitis, hives, eczemia, asthma or other Vital Signs Vital Signs Vital Signs: 02/12/23 12:53 Temperature 98.0 F Temperature Source Temporal Pulse Rate 132 H Respiratory Rate 16 Blood Pressure 121/84 H Blood Pressure Mean 96 Pulse Ox 99 Oxygen Delivery Method Room Air Weight Weight: 68.492 kg Body Mass Index (BMI) 22.3 Physical Exam Const alert, oriented x3, no apparent distress, average body habitus and well nourished Constitutional Narrative: Middle-aged, white female, appears comfortable, watching television, nontoxic General Appearance: cooperative HEENT normocephalic, head/scalp atraumatic, hearing grossly normal bilaterally, moist oral mucous membranes and oropharynx normal HEENT Narrative: Dentition is fair, Mallampati is 2, no thrush Neck no lymphadenopathy, supple, no JVD and no carotid bruits Resp normal respiratory effort, no retractions, no use of accessory muscles and clear to auscultation bilaterally Auscultation: Negative for rales, rhonchi or wheezes Cardio regular rate, regular rhythm, S1 normal heart sound, S2 normal heart sound, no murmurs, no rub, no gallops and no clicks GI normal to inspection, nondistended, normoactive bowel sounds, soft to palpation, non-tender and non-distended Extremity no clubbing, cyanosis or edema Skin no rashes or lesions noted, no wounds, skin turgor normal, no jaundice, no petec hiae and no mottling Neuro oriented x3, CN's II-XII intact bilaterally, moves all extremities and no focal motor deficits Neuro Narrative: Mild fine tremor Speech: speech normal Psych affect normal Results Lab / Micro Data Attestation: I reviewed the patient's lab results. Result Diagrams: 02/12/23 13:32 02/12/23 13:32 Labs: Laboratory Results - last 24 hr 02/12/23 13:32: WBC 5.9, RBC 3.67 L, Hgb 13.2, Hct 37.9, MCV 103.3 H, MCH 36.0 H , MCHC 34.8, RDW Std Deviation 56.3 H, RDW Coeff of Alok 14.8 H, Plt Count 228, MPV 9.7, Immature Gran % (Auto) 0.200, Neut % (Auto) 40.8 L, Lymph % (Auto) 46.1 H, Gillespie % (Auto) 7.3, Eos % (Auto) 4.1, Baso % (Auto) 1.5 H, Absolute Neuts (auto) 2.4, Absolute Lymphs (auto) 2.72, Nucleated RBC % 0 02/12/23 13:32: Sodium 138, Potassium 3.4 L, Chloride 110 H, Carbon Dioxide 20.0 L, Anion Gap 8, BUN 3 L, Creatinine 0.62, Estim Creat Clear Calc 119.75, Est GFR (MDRD) Af Amer 133, Est GFR (MDRD) Non-Af 110, BUN/Creatinine Ratio 4.8 L, Glucose 103, Calcium 8.3 L 02/12/23 13:32: Ethyl Alcohol 183.0 02/12/23 13:32: Urine Opiates Screen NEGATIVE, Urine Methadone Screen NEGATIVE, Ur Barbiturates Screen NEGATIVE, Ur Phencyclidine Scrn NEGATIVE, Ur Amphetamines Screen NEGATIVE, MDMA (Ecstasy) Screen NEGATIVE, U Benzodiazepines Scrn NEGATIVE, Urine Cocaine Screen NEGATIVE, U Cannabinoids Screen NEGATIVE, Ur Drug Screen Comment 02/12/23 13:32: Serum , Qual NEGATIVE 02/12/23 13:32: Urine Color Yellow, Urine Clarity Clear, Urine pH 5.0, Ur Specific [place] 1.020, Urine Protein 15 H, Urine Glucose (UA) Normal, Urine Ketones 5 H, Urine Occult Blood Negative, Urine Nitrite Negative, Urine Bilirubin Negative, Urine Urobilinogen Normal, Ur Leukocyte Esterase 25 H Assessment & Plan Assessment/Plan (1) Alcohol abuse: (2) Alcohol intoxication: PLAN: Plan Alcohol abuse/acute alcohol withdrawal -Patient is a heavy drinker and drinks approximately 6-8 24 ounce beers daily -Was not sober long after her last admission 10/20/22-10/23/22 -Has complications related to her alcohol use including cirrhosis -Start phenobarbital taper -As needed Ativan per [facility] protocol -Thiamine/folate -Supportive medications for symptoms related to withdrawal -180 consultation Hypokalemia -40 mEq replacement -repeat BMP in am -check am mag and phos Cirrhosis related to alcohol abuse -No signs of decompensation -Patient takes no medications at baseline for this -Monitor clinically Suspected COPD -Continue home albuterol -Recommend tobacco cessation -Recommend outpatient follow-up with pulmonary medicine Tobacco abuse -Recommend cessation -Currently smokes 2 packs daily -Nicotine patch available-21 mics Depression/PTSD/bipolar -Continue home medications Insomnia -Trazodone is available -As needed melatonin DVT prophylaxis -Low risk -Early ambulation CODE STATUS -Full code Charges/Coding Visit Charges Inpatient E&M: 85237 Init Hosp L2
--- NOTE | 2023-02-12 14:30 | NURSING ---
MED SURG LIANE ALCOHOL WITHDRAWAL, DETOX
[2023-02-12 15:02] VITALS: BP 126/88; PULSE 106; RESP 18; TEMP 36.7; O2SAT 96
[2023-02-12 15:23] VITALS: BMI 22.5
[2023-02-12 16:12] VITALS: BP 134/82; PULSE 87; RESP 16; TEMP 36.6; O2SAT 100
[2023-02-12] MEDS: Phenobarbital 32.4 MG Tablet 64.8 MG PO ×3 (16:17→23:06)
[2023-02-12] MEDS: Potassium Chloride Oral Tablet 20 MEQ 40 MEQ PO (16:17)
[2023-02-12 19:12] VITALS: BP 109/74; PULSE 91; RESP 18; TEMP 36.6; O2SAT 97
[2023-02-12 23:09] VITALS: BP 137/94; PULSE 96; RESP 16; TEMP 36.8; O2SAT 96
[2023-02-13] MEDS: Phenobarbital 32.4 MG Tablet 64.8 MG PO ×6 (03:54→23:26)
[2023-02-13 03:57] VITALS: BP 135/89; PULSE 72; RESP 16; TEMP 37.2; O2SAT 98
[2023-02-13] MEDS: Benzonatate 100 MG Capsule 200 MG PO ×3 (05:52→23:26)
[2023-02-13 06:00] VITALS: BP 130/87; PULSE 82; RESP 18; TEMP 36.8; O2SAT 95
[2023-02-13 06:56] LABS: Anion Gap 8 (5-15); BUN 3 mg/dL (7-18); Calcium,Total 8.3 mg/dL (8.5-10.1); Chloride 108 mmol/L (98-107); EST Glomerular Filtration Rate 140 mL/min (>60); Est Glom Filt Rate - Afr Amer 169 mL/min (>60); Estimated Creatinine Clearance 148.49 ml/min; Glucose 83 mg/dL (74-106); Magnesium 1.4 mg/dL (1.6-2.6); Potassium 3.6 mmol/L (3.5-5.1); Sodium Level 137 mmol/L (136-145)
--- NOTE | 2023-02-13 07:01 | PCM.PN.HOSP ---
Reason for Visit Reason for Visit: Diagnoses Alcohol abuse, uncomplicated (02/12/23) Alcohol use, unspecified with intoxication, unspecified (02/12/23) Subjective Subjective Had a slight headache improved with Tylenol, no shaking, feels the phenobarbital is working well Objective Data Objective Data Vital Signs: Vital Signs Temp Pulse Resp BP Pulse Ox O2 Del Method 98.3 F 82 18 130/87 H 95 Room Air 02/13/23 06:00 02/13/23 06:00 02/13/23 06:00 02/13/23 06:00 02/13/23 06:00 02/13/23 06:00 Oxygen Delivery Method Room Air Weight: 69.3 kg Body Mass Index (BMI) 22.5 Intake & Output: Intake and Output for Last 24 Hours 02/11/23 02/12/23 02/13/23 23:59 23:59 23:59 Intake Total 1500 / 1500 Balance 1500 / 1500 Lab / Micro Data Result Diagrams: 02/12/23 13:32 02/13/23 05:44 Labs: Laboratory Results - last 24 hr 02/12/23 13:32: WBC 5.9, RBC 3.67 L, Hgb 13.2, Hct 37.9, MCV 103.3 H, MCH 36.0 H, MCHC 34.8, RDW Std Deviation 56.3 H, RDW Coeff of Alok 14.8 H, Plt Count 228, MPV 9.7, Immature Gran % (Auto) 0.200, Neut % (Auto) 40.8 L, Lymph % (Auto) 46.1 H, [place] % (Auto) 7.3, Eos % (Auto) 4.1, Baso % (Auto) 1.5 H, Absolute Neuts (auto) 2.4, Absolute Lymphs (auto) 2.72, Nucleated RBC % 0 02/12/23 13:32: Sodium 138, Potassium 3.4 L, Chloride 110 H, Carbon Dioxide 20.0 L, Anion Gap 8, BUN 3 L, Creatinine 0.62, Estim Creat Clear Calc 119.75, Est GFR (MDRD) Af Amer 133, Est GFR (MDRD) Non-Af 110, BUN/Creatinine Ratio 4.8 L, Glucose 103, Calcium 8.3 L 02/12/23 13:32: Ethyl Alcohol 183.0 02/12/23 13:32: Urine Opiates Screen NEGATIVE, Urine Methadone Screen NEGATIVE, Ur Barbiturates Screen NEGATIVE, Ur Phencyclidine Scrn NEGATIVE, Ur Amphetamines Screen NEGATIVE, MDMA (Ecstasy) Screen NEGATIVE, U Benzodiazepines Scrn NEGATIVE, Urine Cocaine Screen NEGATIVE, U Cannabinoids Screen NEGATIVE, Ur Drug Screen Comment 02/12/23 13:32: Serum , Qual NEGATIVE 02/12/23 13:32: Urine Color Yellow, Urine Clarity Clear, Urine pH 5.0, Ur Specific [place] 1.020, Urine Protein 15 H, Urine Glucose (UA) Normal, Urine Ketones 5 H, Urine Occult Blood Negative, Urine Nitrite Negative, Urine Bilirubin Negative, Urine Urobilinogen Normal, Ur Leukocyte Esterase 25 H, Urine RBC 0 SEEN, Urine WBC 0 SEEN, Ur Squamous Epith Cells 0 SEEN, Urine Bacteria 0 SEEN, Urine Mucus 0 SEEN 02/13/23 05:44: Sodium 137, Potassium 3.6, Chloride 108 H, Carbon Dioxide 21.0, Anion Gap 8, BUN 3 L, Creatinine 0.50 L, Estim Creat Clear Calc 148.49, Est GFR (MDRD) Af Amer 169, Est GFR (MDRD) Non-Af 140, BUN/Creatinine Ratio 6.0 L, Glucose 83, Calcium 8.3 L, Magnesium 1.4 L Physical Exam Narrative General: Alert, oriented, no apparent distress HEENT: Atraumatic, normocephalic Eyes: Anicteric, normal conjunctiva, extraocular movements grossly intact Neck: Supple Respiratory: Clear to auscultation bilaterally, normal respiratory effort Cardiovascular: Regular rate and rhythm GI: Soft, nontender, nondistended Extremities: No edema Musculoskeletal: Moving all extremities Neuro: No overt focal neurological deficits Skin: No rashes appreciated Psych: Cooperative Assessment & Plan Assessment/Plan (1) Alcohol abuse: (2) Alcohol intoxication: PLAN: Plan Alcohol abuse/acute alcohol withdrawal -Patient is a heavy drinker and drinks approximately 6-8 24 ounce beers daily -Was not sober long after her last admission 10/20/22-10/23/22 -Has complications related to her alcohol use including cirrhosis -Start phenobarbital taper -As needed Ativan per [facility] protocol -Thiamine/folate -Supportive medications for symptoms related to withdrawal -180 consultation -02/13: Doing well on phenobarb taper, continue present management Hypokalemia-resolved Cirrhosis related to alcohol abuse -No signs of decompensation -Patient takes no medications at baseline for this -Monitor clinically Suspected COPD -Continue home albuterol -Recommend tobacco cessation -Recommend outpatient follow-up with pulmonary medicine Tobacco abuse -Recommend cessation -Currently smokes 2 packs daily -Nicotine patch available-21 mics Depression/PTSD/bipolar -Continue home medications Insomnia -Trazodone is available -As needed melatonin DVT prophylaxis -Low risk -Early ambulation CODE STATUS -Full code Charges/Coding Visit Charges Inpatient E&M: 67624 Subs Hosp L1
[2023-02-13 07:04] LABS: Phosphorus 3.4 mg/dL (2.5-4.9)
[2023-02-13] MEDS: Pantoprazole Sodium 40 MG Tablet PO (09:01)
[2023-02-13] MEDS: Thiamine Hydrochloride 100 MG Tablet 200 MG PO (09:01)
[2023-02-13] MEDS: Venlafaxine XR 75 MG Capsule PO (09:01)
[2023-02-13] MEDS: Acetaminophen 325 MG Tablet 650 MG PO (09:01)
[2023-02-13] MEDS: Folic Acid 1 MG Tablet PO (09:01)
[2023-02-13] MEDS: 0.9% Saline Lock 10 ML Syringe IV (09:13)
[2023-02-13] MEDS: Magnesium Sulfate 4gm/100mL 4 GM/100 ML IV.SOLN. IV (09:13)
[2023-02-13 09:22] VITALS: BP 134/80; PULSE 81; RESP 16; TEMP 36.8; O2SAT 100
[2023-02-13 13:00] VITALS: O2SAT 95
[2023-02-13 14:00] VITALS: BP 139/82; PULSE 86; RESP 16; TEMP 36.7; O2SAT 100
--- NOTE | 2023-02-13 19:14 | CPS ---
Pt asleep, did not want to wake up to do IS at this time
[2023-02-13 22:00] VITALS: BP 149/93; PULSE 74; RESP 16; TEMP 36.1; O2SAT 99
[2023-02-14] MEDS: Phenobarbital 32.4 MG Tablet 64.8 MG PO ×5 (04:51→20:21)
[2023-02-14 05:00] VITALS: BP 145/82; PULSE 82; RESP 16; TEMP 36.6; O2SAT 99
--- NOTE | 2023-02-14 07:52 | PN.HOSP_ITS ---
Reason for Visit Reason for Visit: Diagnoses Alcohol abuse, uncomplicated (02/12/23) Alcohol use, unspecified with intoxication, unspecified (02/12/23) Subjective Subjective Patient is a 47-year-old lady with history of chronic alcohol dependence admitted with acute alcohol withdrawal Objective Data Objective Data Vital Signs: Vital Signs Temp Pulse Resp BP Pulse Ox O2 Del Method 97.8 F 82 16 145/82 H 99 Room Air 02/14/23 05:00 02/14/23 05:00 02/14/23 05:00 02/14/23 05:00 02/14/23 05:00 02/14/23 05:00 Oxygen Delivery Method Room Air Weight: 69.3 kg Body Mass Index (BMI) 22.5 Intake & Output: Intake and Output for Last 24 Hours 02/12/23 02/13/23 02/14/23 23:59 23:59 23:59 Intake Total 1500 / 1500 100 / 100 Balance 1500 / 1500 100 / 100 Lab / Micro Data Result Diagrams: 02/12/23 13:32 02/13/23 05:44 Physical Exam Narrative GENERAL: cooperative HEENT: Atraumatic; normocephalic EYES; Anicteric, Normal Conjunctiva NECK; supple, normal thyroid, RESPIRATORY: Diminished to auscultation CARDIOVASCULAR: Regular S1 S2, GI: soft, normoactive bowel sounds, : No Renal angle tenderness; EXTREMITIES: No edema, no clubbing, MUSCULOSKELETAL: no muscle wasting NEURO: Awake; no lateralizing signs. SKIN: No Rash PSYCH; Flat affect Assessment & Plan Assessment/Plan (1) Alcohol abuse: (2) Alcohol intoxication: PLAN: Plan Patient is a 47-year-old lady with history of chronic alcohol dependence admitted with acute alcohol withdrawal 1. Acute alcohol withdrawal ? Admitted to regular nursing floor currently being managed with phenobarb taper in addition to symptomatic treatment 2. Cirrhosis of the liver ? Secondary to chronic alcohol abuse currently remains stable 3. Hypokalemia corrected per protocol 4. Tobacco dependence - Counseled on cessation, offered nicotine patch for tobacco cravings 4. Depression ? Patient is on venlafaxine did continue 5. GERD ? On PPI 6. Insomnia ? Patient is on trazodone for sleep 7. DVT prophylaxis ? Low risk. Time spent in the patient's overall evaluation,decision-making process, review of diagnostic data, adjustment of management, discussion with other providers, n ursing nursing and ancillary staff involved in patient's care documentation, 35 Minutes Charges/Coding Visit Charges Inpatient E&M: 13143 Subs Hosp L2
[2023-02-14 08:32] VITALS: BP 141/91; PULSE 74; RESP 18; TEMP 37.1; O2SAT 99
[2023-02-14] MEDS: Thiamine Hydrochloride 100 MG Tablet 200 MG PO (08:38)
[2023-02-14] MEDS: Folic Acid 1 MG Tablet PO (08:38)
[2023-02-14] MEDS: Pantoprazole Sodium 40 MG Tablet PO (08:39)
[2023-02-14] MEDS: Venlafaxine XR 75 MG Capsule PO (08:39)
[2023-02-14] MEDS: Benzonatate 100 MG Capsule 200 MG PO ×2 (12:31→21:55)
[2023-02-14 14:13] VITALS: BP 141/87; PULSE 72; RESP 18; TEMP 37.1; O2SAT 99
--- NOTE | 2023-02-14 14:14 | NURSING ---
declines any prn med for anxiety
[2023-02-14 20:17] VITALS: BP 135/80; PULSE 69; RESP 18; TEMP 36.8; O2SAT 99
[2023-02-14] MEDS: traZODone 100 MG Tablet PO (21:58)
[2023-02-14] MEDS: Magnesium Chloride 64 MG Delay Rel.Tablet 128 MG PO (22:00)
[2023-02-15] MEDS: Phenobarbital 32.4 MG Tablet 64.8 MG PO ×2 (00:43→06:04)
[2023-02-15] MEDS: Benzonatate 100 MG Capsule 200 MG PO (06:05)
[2023-02-15 06:06] VITALS: BP 140/94; PULSE 81; RESP 16; TEMP 36.6; O2SAT 98
--- NOTE | 2023-02-15 07:19 | PCM.PN.HOSP ---
Reason for Visit Reason for Visit: Diagnoses Alcohol abuse, uncomplicated (02/12/23) Alcohol use, unspecified with intoxication, unspecified (02/12/23) Subjective Subjective Patient seen denies any withdrawal symptoms this morning. Patient is requesting to be discharged home. Objective Data Objective Data Vital Signs: Vital Signs Temp Pulse Resp BP Pulse Ox O2 Del Method 97.8 F 81 16 140/94 H 98 Room Air 02/15/23 06:06 02/15/23 06:06 02/15/23 06:06 02/15/23 06:06 02/15/23 06:06 02/15/23 06:06 Oxygen Delivery Method Room Air Weight: 69.3 kg Body Mass Index (BMI) 22.5 Intake & Output: Intake and Output for Last 24 Hours 02/13/23 02/14/23 02/15/23 23:59 23:59 23:59 Intake Total 100 / 100 Balance 100 / 100 Lab / Micro Data Result Diagrams: 02/12/23 13:32 02/13/23 05:44 Physical Exam Narrative GENERAL: cooperative HEENT: Atraumatic; normocephalic EYES; Anicteric, Normal Conjunctiva NECK; supple, normal thyroid, RESPIRATORY: Diminished to auscultation CARDIOVASCULAR: Regular S1 S2, GI: soft, normoactive bowel sounds, : No Renal angle tenderness; EXTREMITIES: No edema, no clubbing, MUSCULOSKELETAL: no muscle wasting NEURO: Awake; no lateralizing signs. SKIN: No Rash PSYCH; Flat affect Assessment & Plan Assessment/Plan (1) Alcohol abuse: (2) Alcohol intoxication: PLAN: Plan Patient is a 47-year-old lady with history of chronic alcohol dependence admitted with acute alcohol withdrawal 1. Acute alcohol withdrawal ? Admitted to regular nursing floor currently being managed with phenobarb taper in addition to symptomatic treatment ? 02/15/2023 patient symptoms significantly improved patient will be assessed for possible discharge 2. Cirrhosis of the liver ? Secondary to chronic alcohol abuse currently remains stable 3. Hypokalemia corrected per protocol 4. Tobacco dependence - Counseled on cessation, offered nicotine patch for tobacco cravings 4. Depression ? Patient is on venlafaxine did continue 5. GERD ? On PPI 6. Insomnia ? Patient is on trazodone for sleep 7. DVT prophylaxis ? Low risk. Time spent in the patient's overall evaluation,decision-making process, review of diagnostic data, adjustment of management, discussion with other providers, nursing nursing and ancillary staff involved in patient's care documentation, 35 Minutes Charges/Coding Visit Charges Inpatient E&M: 06277 Subs Hosp L2
[2023-02-15] MEDS: Folic Acid 1 MG Tablet PO (08:27)
[2023-02-15] MEDS: Thiamine Hydrochloride 100 MG Tablet 200 MG PO (08:27)
[2023-02-15] MEDS: Pantoprazole Sodium 40 MG Tablet PO (08:27)
[2023-02-15] MEDS: Venlafaxine XR 75 MG Capsule PO (08:28)
[2023-02-15] MEDS: Magnesium Chloride 64 MG Delay Rel.Tablet 128 MG PO (08:30)
[2023-02-15 08:32] VITALS: BP 144/91; PULSE 74; RESP 16; TEMP 36.6; O2SAT 97
--- NOTE | 2023-02-15 08:53 | PCM.DC.SUM ---
Providers Date of Admission: 02/12/23 Date of Discharge: 02/15/23 Primary Care Physician: Dr. Ninoska Walsh MD Reason For Visit: ETOH DETOX Diagnosis Discharge Diagnosis (1) Alcohol abuse: Status: Acute Code(s): F10.10 - Alcohol abuse, uncomplicated (2) Alcohol intoxication: Status: Acute Code(s): F10.929 - Alcohol use, unspecified with intoxication, unspecified Plan Patient is a 47-year-old lady with history of chronic alcohol dependence admitted with acute alcohol withdrawal 1. Acute alcohol withdrawal ? Admitted to regular nursing floor currently being managed with phenobarb taper in addition to symptomatic treatment ? 02/15/2023 patient symptoms significantly improved patient will be assessed for possible discharge 2. Cirrhosis of the liver ? Secondary to chronic alcohol abuse currently remains stable 3. Hypokalemia corrected per protocol 4. Tobacco dependence - Counseled on cessation, offered nicotine patch for tobacco cravings 4. Depression ? Patient is on venlafaxine did continue 5. GERD ? On PPI 6. Insomnia ? Patient is on trazodone for sleep 7. DVT prophylaxis ? Low risk. Time spent in the patient's overall evaluation,decision-making process, review of diagnostic data, adjustment of management, discussion with other providers, nursing nursing and ancillary staff involved in patient's care documentation, 35 Minutes Medications at Discharge Home Medications albuterol sulfate 90 mcg/actuation aerosol inhaler 2 puff inhalation Q4H PRN PRN SOB 10/20/22 benzonatate 100 mg capsule 200 mg PO TID PRN Cough 10/20/22 dextroamphetamine-amphetamine 15 mg tablet 15 mg PO DAILY MOOD 10/20/22 gabapentin 300 mg capsule 300 mg PO QHS NERVE PAIN 10/20/22 trazodone 100 mg tablet 100 mg PO QHS SLEEP 10/20/22 pantoprazole 40 mg tablet,delayed release 40 mg PO DAILY gerd 02/12/23 venlafaxine 75 mg capsule,extended release 24 hr 75 mg PO DAILY depression 02/12/23 Hospital Course Summary of Care Provided Minutes Spent on Discharge: 35 Physical Exam Narrative GENERAL: cooperative HEENT: Atraumatic; normocephalic EYES; Anicteric, Normal Conjunctiva NECK; supple, normal thyroid, RESPIRATORY: Diminished to auscultation CARDIOVASCULAR: Regular S1 S2, GI: soft, normoactive bowel sounds, : No Renal angle tenderness; EXTREMITIES: No edema, no clubbing, MUSCULOSKELETAL: no muscle wasting NEURO: Awake; no lateralizing signs. SKIN: No Rash PSYCH; Flat affect Weight / BMI Weight Weight: 69.3 kg Body Mass Index (BMI) 22.5 ABG / Lab / Microbiology Data Result Diagrams: 02/12/23 13:32 02/13/23 05:44 D/C Instructions Discharge Diet: No restrictions Discharge Activity: Return to Normal Activity Call your doctor if you observe: Fever of 101 or Higher, Shortness of breath, Fainting spells and Chest pain Meaningful Use Info Meaningful Use Diagnoses (Choose all that apply): None applicable Discharge Plan Admission Admit Date/Time: 02/12/23 14:30 Attending Provider: [employer]ak Foreman Primary Care Provider: Ninoska Walsh Consulting Providers: Elsa Hdz ; Natalie Zepeda Discharge Orders/Prescriptions Prescriptions: Continued trazodone 100 mg tablet 100 mg PO QHS Label Comments: take 1 tablet by mouth at bedtime if needed benzonatate 100 mg capsule 200 mg PO TID PRN (Reason: Cough) Label Comments: take 1 to 2 capsules by mouth three times a day if needed for cough dextroamphetamine-amphetamine 15 mg tablet 15 mg PO DAILY Label Comments: take 1 tablet by mouth once daily gabapentin 300 mg capsule 300 mg PO QHS Label Comments: take 1 capsule by mouth at bedtime albuterol sulfate 90 mcg/actuation HFA aerosol inhaler 2 puff INHALATION Q4H PRN PRN (Reason: SOB) Label Comments: inhale 2 puffs by mouth and INTO THE LUNGS every 4 hours if neede... (REFER TO PRESCRIPTION NOTES). venlafaxine 75 mg capsule,extended release 24hr 75 mg PO DAILY Label Comments: take 1 capsule by mouth once daily pantoprazole 40 mg tablet,delayed release (DR/EC) 40 mg PO DAILY Label Comments: take 1 tablet by mouth once daily 30 MINUTES BEFORE A MEAL Referrals / Follow Up: Ninoska Walsh MD [Primary Care Provider] - Disposition Disposition (needs filled in before D/C Order can be placed): Home, Self Care Charges/Coding Visit Charges Inpatient E&M: 25482 Disch Hosp >30min
== END 2023-02-15 09:04 | disposition home or self-care (01) | DRG 772 ==
LOC: ED 14:37 → MS3 14:43
PROVIDERS: Nurse Practitioner; Admitting Provider Internal Medicine; Emergency Provider Emergency Medicine; PCP Internal Medicine; Visit Provider Internal Medicine
DX: F10.239 Alcohol dependence with withdrawal, unspecified (principal); F31.9 Bipolar disorder, unspecified; K70.30 Alcoholic cirrhosis of liver without ascites; J44.9 Chronic obstructive pulmonary disease, unspecified; F10.220 Alcohol dependence with intoxication, uncomplicated; E87.6 Hypokalemia; F41.9 Anxiety disorder, unspecified; I10 Essential (primary) hypertension; K21.9 Gastro-esophageal reflux disease without esophagitis; F17.210 Nicotine dependence, cigarettes, uncomplicated; Y90.6 Blood alcohol level of 120-199 mg/100 ml; G47.00 Insomnia, unspecified; F43.10 Post-traumatic stress disorder, unspecified; Z79.899 Other long term (current) drug therapy
CPT/HCPCS: 80048; 80307; 81001; 82077; 83735; 84100; 84703; 85025; 93005; 94668; 99252; 99283; 99406; J7030; A4216; G0463; J2405

== ENCOUNTER 2023-05-24 14:38 | Emergency (ER) | payer MEDICAID, SELFPAY ==
[2023-05-24 14:39] VITALS: BP 144/96; PULSE 106; RESP 18; TEMP 36.4; O2SAT 98; BMI 23.7
[2023-05-24 16:01] VITALS: BP 141/82; RESP 16; O2SAT 98
--- NOTE | 2023-05-24 16:02 | EDS_ITS ---
HPI History of Present Illness Chief Complaint: Hypertension Informant: patient and family Onset/Context/Timing Onset: Weeks Context: Gradual Onset Timing: Continuous Current Severity: Mild Maximum Severity: Mild Narrative Narrative: 48-year-old female recent admission at another facility for alcohol detox. She was just discharged last week. They started her on blood pressure medication propranolol 40 mg twice a day. She does not have enough medication so she is only been taking it once a day. Her blood pressures have been running around 150/90. She was hoping to get another prescription. And will do outpatient follow-up with her primary care physician. She denies any other complaints. Prior similar symptoms: Yes Recent Illness/Hospitalization: Yes PFSH PFSH Medical History Asthma Cirrhosis Depression ETOH abuse GERD (gastroesophageal reflux disease) Hypertension Migraines PTSD (post-traumatic stress disorder) Scoliosis Smoker Home Medications albuterol sulfate 90 mcg/actuation aerosol inhaler 2 puff inhalation Q4H PRN PRN SOB 10/20/22 [History Last Taken 10/20/22] benzonatate 100 mg capsule 200 mg PO TID PRN Cough 10/20/22 [History Last Taken 10/17/22] dextroamphetamine-amphetamine 15 mg tablet 15 mg PO DAILY MOOD 10/20/22 [History Last Taken Unknown] gabapentin 300 mg capsule 300 mg PO QHS NERVE PAIN 10/20/22 [History Last Taken Unknown] trazodone 100 mg tablet 100 mg PO QHS SLEEP 10/20/22 [History Last Taken Unknown] pantoprazole 40 mg tablet,delayed release 40 mg PO DAILY gerd 02/12/23 [History Last Taken Unknown] venlafaxine 75 mg capsule,extended release 24 hr 75 mg PO DAILY depression 02/12/23 [History Last Taken Unknown] propranolol 40 mg tablet 40 mg PO BID 05/24/23 [History Last Taken 05/23/23 21:00] propranolol 40 mg tablet 40 mg PO BID 30 days #60 tabs 05/24/23 [Rx Last Taken Unknown] Allergy/AdvReac Type Severity Reaction Status Date / Time diazepam [From Valium] Allergy Hives Verified 05/24/23 14:39 Penicillins Allergy Hives Verified 05/24/23 14:39 Surgical History History of appendectomy Social History household members: family housing: house Smoking Status: Light Smoker (<10/day) Tobacco: How many years used: 40 alcohol intake: current details: Drinks 6-8 of 24 ounce beers daily substance use type: does not use ROS ROS ED ROS Narrative Denies recent illness Review of Systems ROS Unobtainable: Denies due to encephalopathy Constitutional Constitutional ED: Denies chills or fever(s) Eyes Eyes: Denies blurry vision ENT ENT ED: Denies ear pain Cardiovascular Cardiovascular: Denies chest pain Respiratory/Chest Respiratory/Chest: Denies cough or dyspnea Gastrointestinal Gastrointestinal: Denies abdominal pain Genitourinary Genitourinary ED: Denies dysuria Musculoskeletal Musculoskeletal: Denies arthralgias Integumentary Denies abscess Neurologic Neurologic: Denies headache(s) Psychiatric Psychiatric: Denies anxiety Endocrine Endocrinology: Denies cold intolerance Hematologic/Lymphatic Hematologic/Lymphatic: Reports none Allergic/Immunologic Allergic/Immunologic ED: Denies mouth swelling or tongue swelling EXAM Physical Exam Narrative Exam Narrative: Well-appearing 48-year-old female. Vital signs are stable and afebrile. Blood pressure 144/96. No distress. HEENT exam unremarkable. Lungs clear. Heart regular rate and rhythm no murmur. Abdomen soft nontender. Moving all 4 extremities. Nontender no edema. Neurologic exam normal. Const Vital Signs: 05/24/23 14:39 05/24/23 15:08 05/24/23 15:15 Temperature 97.5 F L Temperature Source Temporal Pulse Rate 106 H Respiratory Rate 18 Respiratory Effort Normal Normal Respiratory Depth Normal Respiratory Pattern Normal Normal Blood Pressure 144/96 H Blood Pressure Mean 112 Pulse Ox 98 Oxygen Delivery Method Room Air Positive well nourished and well developed; Negative for obese, cachectic, contractures or unkempt General Appearance ED: well developed and NAD; Negative for unkempt, cachectic, contractures, cyanotic, diaphoretic or pallor Nutritional Appearance: Negative for cachectic or obese HEENT Reports moist mucous membranes; Denies dry mucous membranes Negative for trauma or tenderness Mouth ED: No dry mucous membranes Mouth: No dry mucous membranes Eyes PERRL and EOMs intact bilaterally General Eye ED: Negative for pale conjunctiva or scleral icterus Neck no lymphadenopathy, supple and no JVD General: Negative for tenderness Lymph Lymphatic: Negative for other Chest Wall inspection of chest normal and palpation of chest normal Chest: Negative for other Resp normal respiratory effort and clear to auscultation bilaterally Effort and Inspection: Negative for retractions Auscultation: Negative for rales, rhonchi or wheezes Cardio regular rate, regular rhythm, S1 normal heart sound, S2 normal heart sound and no murmurs Palpation: Negative for palpable S3 Rate: Negative for bradycardia or tachycardic Rhythm: Negative for abnormal rhythm GI normal to inspection, nondistended, normoactive bowel sounds, non-tender, non- distended and no masses Inspection: Negative for abdominal distention Auscultation: normoactive bowel sounds Palpation: soft; Negative for tender or guarding Back/Spine no CVA tenderness General Back: Negative for CVA tenderness Cervical Spine: Negative for cervical spine tenderness Thoracic Spine / Upper Back: Negative for thoracic spinal tenderness Extremity normal to inspection General Extremety ED: Negative for edema or tenderness General Extremity: Negative for edema Neuro oriented x3 and CN's II-XII intact bilaterally Sensorium / Orientation: alert; Negative for orientation impaired, lethargic or stuporous Motor Exam: strength 5/5 throughout and general weakness Psych mental status grossly normal Appearance: Negative for unkempt Attitude: No agitated Mood & Affect: Negative for depressed Skin no rashes or lesions noted, no wounds and skin turgor normal General Skin Exam: elasticity normal; Negative for jaundice or pallor Lesions: No lesion noted Rashes: No rashes noted Trauma: Negative for abrasion Wounds: Negative for wounds noted MDM MDM MDM Narrative Medical decision making narrative: 48-year-old with acute on chronic hypertension. Her exam is normal. She does not need any labs. She had labs several months ago with normal kidney function. She will be written for 4 Prantal 40 mg twice daily. Blood pressure machine. Follow-up with her primary care physician. Discharge Plan Triage Chief Complaint: Hypertension ED Provider: Neal Stout Dx/Rx/DC Orders Clinical Impression: Alcoholism, Bipolar disorder, Hypertension Instructions: ED High Blood Pressure Hypertension Prescriptions: New propranolol 40 mg tablet 40 mg PO BID 30 Days Qty: 60 0RF No Action trazodone 100 mg tablet 100 mg PO QHS Patient Comments: take 1 tablet by mouth at bedtime if needed benzonatate 100 mg capsule 200 mg PO TID PRN (Reason: Cough) Patient Comments: take 1 to 2 capsules by mouth three times a day if needed for cough dextroamphetamine-amphetamine 15 mg tablet 15 mg PO DAILY Patient Comments: take 1 tablet by mouth once daily gabapentin 300 mg capsule 300 mg PO QHS Patient Comments: take 1 capsule by mouth at bedtime albuterol sulfate 90 mcg/actuation HFA aerosol inhaler 2 puff INHALATION Q4H PRN PRN (Reason: SOB) Patient Comments: inhale 2 puffs by mouth and INTO THE LUNGS every 4 hours if neede... (REFER TO PRESCRIPTION NOTES). venlafaxine 75 mg capsule,extended release 24hr 75 mg PO DAILY Patient Comments: take 1 capsule by mouth once daily pantoprazole 40 mg tablet,delayed release (DR/EC) 40 mg PO DAILY Patient Comments: take 1 tablet by mouth once daily 30 MINUTES BEFORE A MEAL propranolol 40 mg tablet 40 mg PO BID Primary Care Provider: Ninoska Walsh Referrals: Ninoska Walsh MD [Primary Care Provider] - As soon as possible Activity Restrictions/Additional Instructions: Log your blood pressures twice daily and show that your primary care physician next time you see them. That way they can adjust your blood pressure medications as needed. Propranolol 40 mg twice a day. Get a blood pressure machine. Disposition Disposition: Home, Self Care
== END 2023-05-24 16:16 | disposition home or self-care (01) ==
PROVIDERS: Emergency Provider Emergency Medicine; PCP Internal Medicine; Visit Provider Emergency Medicine
DX: I10 Essential (primary) hypertension (principal); F10.20 Alcohol dependence, uncomplicated; F31.9 Bipolar disorder, unspecified; F17.200 Nicotine dependence, unspecified, uncomplicated; Z79.899 Other long term (current) drug therapy; J45.909 Unspecified asthma, uncomplicated; Z76.0 Encounter for issue of repeat prescription
CPT/HCPCS: 99283

== ENCOUNTER 2024-05-23 17:35 | Emergency (ER) | payer MEDICAID, SELFPAY ==
[2024-05-23 17:40] VITALS: BP 130/84; PULSE 73; RESP 16; TEMP 36.4; O2SAT 100; BMI 22.8
--- NOTE | 2024-05-23 17:53 | ED.VIS.CHEST ---
HPI History of Present Illness Chief Complaint: Chest Pain PFSH PFSH Medical History Asthma Cirrhosis Depression ETOH abuse GERD (gastroesophageal reflux disease) Hypertension Migraines PTSD (post-traumatic stress disorder) Scoliosis Smoker Home Medications ?Medication ?Instructions ?Recorded ?Last Taken ?Type albuterol sulfate 90 mcg/actuation 2 puff inhalation Q4H PRN PRN SOB 10/20/22 10/20/22 History aerosol inhaler benzonatate 100 mg capsule 200 mg PO TID PRN Cough 10/20/22 10/17/22 History dextroamphetamine-amphetamine 15 15 mg PO DAILY MOOD 10/20/22 Unknown History mg tablet gabapentin 300 mg capsule 300 mg PO QHS NERVE PAIN 10/20/22 Unknown History trazodone 100 mg tablet 100 mg PO QHS SLEEP 10/20/22 Unknown History pantoprazole 40 mg tablet,delayed 40 mg PO DAILY gerd 02/12/23 Unknown History release venlafaxine 75 mg capsule,extended 75 mg PO DAILY depression 02/12/23 Unknown History release 24 hr propranolol 40 mg tablet 40 mg PO BID 05/24/23 05/23/23 21:00 History propranolol 40 mg tablet 40 mg PO BID 30 days #60 tabs 05/24/23 Unknown Rx Allergy/AdvReac Type Severity Reaction Status Date / Time diazepam (From Valium) Allergy Hives Verified 05/23/24 17:44 Penicillins Allergy Hives Verified 05/23/24 17:44 Surgical History History of appendectomy Social History household members: family housing: house Smoking Status: Light Smoker (<10/day) Tobacco: How many years used: 40 alcohol intake: current details: Drinks 6-8 of 24 ounce beers daily substance use type: does not use EXAM Physical Exam Const Vital Signs: 05/23/24 17:40 05/23/24 17:44 05/23/24 18:10 Temperature 97.6 F L Temperature Source Oral Pulse Rate 73 Respiratory Rate 16 Respiratory Effort Normal Non-Labored Blood Pressure 130/84 H Blood Pressure Mean 99 Pulse Ox 100 Oxygen Delivery Method Room Air Room Air 05/23/24 18:45 05/23/24 19:00 05/23/24 20:00 Temperature Temperature Source Pulse Rate 71 76 70 Respiratory Rate 15 10 L 16 Respiratory Effort Blood Pressure 109/65 118/84 H 107/86 H Blood Pressure Mean 79 95 93 Pulse Ox 96 98 95 Oxygen Delivery Method Room Air [facility] [place] Narrative Medical decision making narrative: HISTORY OF PRESENT ILLNESS: 49-year-old female presents with chest pain. States radiates to left arm. Notes abdominal pain as well. Notes chest pains are going on for 3 months. Is been constant. Not exertional. It is located in the mid part of her chest. It does not radiate to the abdomen. She notes nausea and vomiting 3 days ago but denies any nausea or vomiting currently. No she has been drinking alcohol. Denies any other drug use such as meds phentermine or cocaine. The patient denies recent surgery in the last 4 weeks or immobilization in the last 3 days, denies previous diagnosis of DVT or PE, hemoptysis, unilateral leg swelling or malignancy with treatment the last 6 months or palliative. No estrogen use noted. Denies lower extremity edema, denies any bleeding diathesis. Patient denies sudden onset of pain, no tearing sensation, no migratory symptoms, no new numbness, weakness or loss of sensation. Patient denies family history or personal history of Connective tissue disorders (Marfan's Syndrome, Steve Danlos etc) REVIEW OF SYSTEMS: Pertinent positives: Chest pain, abdominal pain Pertinent negatives: Focal weakness, numbness, leg swelling, cough, fever PHYSICAL EXAM: Nursing triage notes reviewed, Vital signs reviewed Constitutional: please see mdm HENT: MMM Eyes: Pupils equal round and reactive to light, Extraocular muscles intact Neck: No stridor, no JVD, full neck ROM Lungs: Clear to auscultation, No wheezing or rales. No increased work of breathing, no conversational dyspnea, no accessory muscle use, no nasal flaring. No respiratory distress noted Heart: Regular rate and rhythm, No murmurs, No rubs and No gallops, 2+ distal pulses (radial, femoral, posterior tibial) in all extremities Abdomen: Soft, there is no tenderness, rigidity, rebound or guarding, no obvious peritoneal signs, no palpable pulsatile abdominal masses, no auscultated abdominal bruit : No CVAT Extremities: No edema Neuro: No focal neurological deficits, cranial nerves II through XII intact, 5/5 strength in all extremities. Intact sensation to light touch in all extremities, 2+ reflexes bilateral patella tendons. Normal gait. No ataxia. Skin: No rash or lesions noted MEDICAL DECISION MAKING: Chief Complaint: Chest pain, abdominal pain External records reviewed: No recent cardiac catheterizations, echocardiograms noted in the chart Factors affecting care: Bipolar disorder, alcoholism, hyperlipidemia Social determinants of health: Polysubstance abuse History obtained from others: none Consults: none MDM Narrative: The patient was initially hemodynamically stable, afebrile and nontoxic-appearing. Exam without focal cardiopulmonary maladies. Abdomen soft nontender without any palpable discomfort. No calf tenderness, no pulse deficits. No focal neurologic deficits. I considered aortic dissection given report of chest pain and abdominal pain however the patient's pain was not radiating her vitals were stable she not appear acute distress, she had no pulse deficits, she had no risk factors for aortic dissection. Low suspicion for this at this time. I consider obtaining a CT scan of the chest abdomen pelvis however thought this was not indicated at this time given lack of historical and physical exam findings to suggest aortic dissection. I considered pulmonary embolism as a potential etiology however the patient had a low risk Wells score, was not tachycardic. I below suspicion for PE at this time. I consider obtaining a CT scan of the chest to rule out PE however thought this not indicated at this time I considered the following differential diagnosis: ACS, arrhythmia, anemia, pancreatitis, esophagitis, pneumothorax, pneumonia I obtained a broad lab and imaging workup to further elucidate the etiology of patient complaint. I treated patient with 1 L normal saline, 4 mg of IV Zofran for symptomatic control and rehydration. ALL IMAGES (IF OBTAINED) HAVE BEEN PERSONALLY REVIEWED AND INTERPRETED BY MYSELF. EKG with normal sinus rhythm, normal axis, normal intervals, no STEMI CBC without leukocytosis, severe anemia, no thrombocytopenia. High-sensitivity troponin is negative, no evidence of myocardial ischemia I have personally reviewed the patient's chest x-ray. Chest x-ray is unremarkable for pulmonary edema, pneumothorax, pneumonia or focal cardiopulmonary abnormality. BMP with hemolyzed potassium, no PARMJIT, no evidence of endorgan hypoperfusion or metabolic acidosis. Upon reassessment the patient was clinically sober. Patient was able to ambulate without an ataxic gait. She request to be discharged as she did not want to wait any longer for additional labs i.e. delta troponin. Patient was alert and orient x 3 no capacity to make her medical symptoms and chose to be discharged. AMA note: I have recommended further ED observation, further testing (delta troponin, repeat BMP) and possibly admission to the hospital, but the patient refuses. The risks (including but not limited to suffering and ) as well as the benefits were explained to the patient. Questions were sought and answered, the patient voiced understanding and accepts these risks. I have encouraged the patient to return to have their evaluation completed as we are glad to do so. Patient had capacity to make his or her own medical decisions. Patient was alert and orient x3 and of sound mind at time of discussion. I have also instructed the patient on the importance of follow-up and to return for any worsening or worrisome concerns. The patient appears competent to make medical decisions at this time. AMA form signed. The patient and/or family, caregivers express understanding. The patient and/or family, caregivers agrees with the plan. Shared decision making: I will have a discussion with the patient and or visitors regarding risk/benefits of further testing or admission. They will be made aware of of the risk/benefits inherent in this decision they will be given the opportunity to voice understanding. Total critical care time today provided was at least 0 minutes. This excludes separately billable procedures. Critical care time (if documented) is secondary to the patient having high probability of clinically significant/life threatening deterioration in the patient's condition which required my urgent intervention. Impression: 1. Chest pain 2. History of hyperlipidemia Dispo: Discharge home This note was generated with [employer] dictation software. It may contain incorrect words, spelling, and punctuation that were not noted in review of the chart prior to signing. Lab Data Labs: Laboratory Results - last 24 hr 05/23/24 05/23/24 05/23/24 17:56 18:57 20:10 WBC 6.3 RBC 4.23 Hgb 13.6 Hct 41.2 MCV 97.4 MCH 32.2 H MCHC 33.0 RDW Std Deviation 54.4 H RDW Coeff of Alok 15.3 H Plt Count 242 MPV 9.9 Immature Gran % (Auto) 0.200 Neut % (Auto) 25.1 L Lymph % (Auto) 63.8 H Leslie % (Auto) 8.0 Eos % (Auto) 1.6 Baso % (Auto) 1.3 H Absolute Neuts (auto) 1.6 L Absolute Lymphs (auto) 4.00 Nucleated RBC % 0 Sodium Cancelled 142 Cancelled Potassium Cancelled 5.8 H Cancelled Chloride Cancelled 112 H Cancelled Carbon Dioxide Cancelled 26.0 Cancelled Anion Gap Cancelled 4 L Cancelled BUN Cancelled 4 L Cancelled Creatinine Cancelled 0.48 L Cancelled Estim Creat Clear Calc Cancelled 151.42 Cancelled Est GFR (MDRD) Af Amer Cancelled 180 Cancelled Est GFR (MDRD) Non-Af Cancelled 149 Cancelled BUN/Creatinine Ratio Cancelled 8.4 L Cancelled Glucose Cancelled 84 Cancelled Calcium Cancelled 8.2 L Cancelled Troponin I High Sens Cancelled < 3 L Lipase Cancelled Radiography Diagnostic Testing: Clinical Impression(s) from Imaging Studies Chest X-Ray 05/23/24 18:12 IMPRESSION: No acute radiographic abnormalities. Electronically Signed: Felipe Bowden MD at 18:37 EDT , Discharge Plan Triage Chief Complaint: Chest Pain ED Provider: Carroll Boothe Dx/Rx/DC Orders Prescriptions: No Action trazodone 100 mg tablet 100 mg PO QHS Patient Comments: take 1 tablet by mouth at bedtime if needed benzonatate 100 mg capsule 200 mg PO TID PRN (Reason: Cough) Patient Comments: take 1 to 2 capsules by mouth three times a day if needed for cough dextroamphetamine-amphetamine 15 mg tablet 15 mg PO DAILY Patient Comments: take 1 tablet by mouth once daily gabapentin 300 mg capsule 300 mg PO QHS Patient Comments: take 1 capsule by mouth at bedtime albuterol sulfate 90 mcg/actuation HFA aerosol inhaler 2 puff INHALATION Q4H PRN PRN (Reason: SOB) Patient Comments: inhale 2 puffs by mouth and INTO THE LUNGS every 4 hours if neede... (REFER TO PRESCRIPTION NOTES). venlafaxine 75 mg capsule,extended release 24hr 75 mg PO DAILY Patient Comments: take 1 capsule by mouth once daily pantoprazole 40 mg tablet,delayed release (DR/EC) 40 mg PO DAILY Patient Comments: take 1 tablet by mouth once daily 30 MINUTES BEFORE A MEAL propranolol 40 mg tablet 40 mg PO BID propranolol 40 mg tablet 40 mg PO BID 30 Days Qty: 60 0RF Primary Care Provider: Ninoska Walsh Referrals: Ninoska Walsh MD [Primary Care Provider] - Print Language: Sudanese
--- NOTE | 2024-05-23 18:01 | EKG12_ITS ---
Test Reason : CP Blood Pressure : / mmHG Vent. Rate : 077 BPM Atrial Rate : 077 BPM P-R Int : 174 ms QRS Dur : 090 ms QT Int : 402 ms P-R-T Axes : 056 021 029 degrees QTc Int : 454 ms Normal sinus rhythm Normal ECG No previous ECGs available Confirmed by KAREN EDWARDS, ORI ([id number]), editor trade journal ROCHELLE JUNG ([id number]) on 05/29/2024 11:33:00 AM Referred By: BB/NICHOLAS Confirmed By:ORI JONES MD
[2024-05-23] MEDS: Ondansetron 4 MG/2 ML Vial IV (18:05)
[2024-05-23] MEDS: 0.9% Normal Saline (1000mL) 1,000 ML 999 ML IV (18:05)
[2024-05-23 18:11] LABS: Absolute Neutrophil Count 1.6 X10^3/uL (2.0-7.7); Basophil# 0.08 X10^3/uL; Basophil% 1.3 % (0-1); Eosinophils% 1.6 % (0-5); Hematocrit 41.2 % (37-47); Hemoglobin 13.6 g/dL (12.0-15.0); Lymphocyte % 63.8 % (19-41); Mean Corpuscular Hgb 32.2 pg (27.0-32.0); Mean Corpuscular Volume 97.4 fL (81-99); Mean Platelet Vol. 9.9 fl (6.2-12.0); NRBC Flagged by Analyzer 0 % (0-5); Neutrophil # 1.58 X10^3/uL (2.7-7.7); Neutrophil % 25.1 % (47-70); Platelet Count 242 K/mm3 (150-450); RBC Distribution Width CV 15.3 % (11.6-14.6); RBC Distribution Width SD 54.4 fl (35.1-43.9); Red Blood Count 4.23 M/mm3 (4.2-5.4); White Blood Count 6.3 K/mm3 (4.4-11.0)
--- NOTE | 2024-05-23 18:12 | RAD_ITS ---
INDICATION: chest pain EXAMINATION/TECHNIQUE: X-RAY - XR Chest 1 View COMPARISON: 10/20/2022. FINDINGS: The lungs are clear. The cardiomediastinal silhouette is unremarkable. No pleural effusion or pneumothorax. No acute osseous abnormalities. RAD/Chest 1 View (Portable) IMPRESSION: No acute radiographic abnormalities. Electronically Signed: Felipe Bowden MD at 18:37 EDT ,
[2024-05-23 18:45] VITALS: BP 109/65; PULSE 71; RESP 15; O2SAT 96
[2024-05-23 19:00] VITALS: BP 118/84; PULSE 76; RESP 10; O2SAT 98
[2024-05-23 19:38] LABS: Anion Gap 4 (5-15); BUN 4 mg/dL (7-18); BUN/Creat Ratio 8.4 RATIO (10-20); Calcium,Total 8.2 mg/dL (8.5-10.1); Chloride 112 mmol/L (98-107); Creatinine, Serum 0.48 mg/dL (0.55-1.02); EST Glomerular Filtration Rate 149 mL/min (>60); Est Glom Filt Rate - Afr Amer 180 mL/min (>60); Estimated Creatinine Clearance 151.42 ml/min; Glucose 84 mg/dL (74-106); Potassium 5.8 mmol/L (3.5-5.1); Sodium Level 142 mmol/L (136-145); Troponin-I HS < 3 pg/mL (3.0-54.0)
[2024-05-23 20:00] VITALS: BP 107/86; PULSE 70; RESP 16; O2SAT 95
--- NOTE | 2024-05-23 20:41 | ED.RN ---
LAB CALLED ED TO LET US KNOW PATIENT NEEDS A 4TH GREEN TUBE DRAW DUE TO HEMOLYSIS. PATIENT INFORMED MORE BLOOD NEEDED. PATIENT STATES NO, I AM READY TO LEAVE. DR. MAYEN NOTIFIED
== END 2024-05-23 20:58 | disposition left against medical advice (07) ==
PROVIDERS: Emergency Provider Emergency Medicine; PCP Internal Medicine; Visit Provider Emergency Medicine
DX: R07.9 Chest pain, unspecified (principal); E78.5 Hyperlipidemia, unspecified; I10 Essential (primary) hypertension; F17.200 Nicotine dependence, unspecified, uncomplicated; Z53.29 Procedure and treatment not carried out because of patient's decision for other reasons; Z79.899 Other long term (current) drug therapy
CPT/HCPCS: 71045; 80048; 84484; 85025; 93005; 96361; 96374; 99284; J7030; A4216; J2405

== ENCOUNTER 2025-01-14 15:24 | Emergency (ER) | payer MEDICAID, SELFPAY ==
[2025-01-14 15:24] VITALS: BP 148/81; PULSE 78; RESP 16; TEMP 36.4; O2SAT 98
--- NOTE | 2025-01-14 15:27 | EKG12_ITS ---
Test Reason : CP/PALPS Blood Pressure : */* mmHG Vent. Rate : 75 BPM Atrial Rate : 75 BPM P-R Int : 144 ms QRS Dur : 90 ms QT Int : 442 ms P-R-T Axes : 37 9 25 degrees QTcB Int : 493 ms Normal sinus rhythm Nonspecific ST abnormality Prolonged QT Abnormal ECG Confirmed by KAREN EDWARDS, ORI ([id number]), publication editor ROCHELLE JUNG ([id number]) on 01/15/2025 8:39:09 AM Referred By: Confirmed By: ORI JONES MD
--- NOTE | 2025-01-14 15:45 | RAD_ITS ---
PROCEDURE: CHEST 1 VIEW (PORTABLE) 01/14/2025 REASON FOR EXAM: CHEST PAIN TECHNIQUE: Frontal view of the chest. COMPARISON: 05/23/2024 chest radiograph FINDINGS: Hardware: None. Heart: Normal size. Lungs: Clear. No pleural effusions. Bones: Unremarkable Other: RAD/Chest 1 View (Portable) IMPRESSION: No acute process in the chest. [facility]
--- NOTE | 2025-01-14 15:47 | EDS_ITS ---
HPI History of Present Illness Chief Complaint: Chest Pain Detail of Chief Complaint: Chest pain Informant: patient Narrative Narrative: Patient presents to the emergency department with complaint of chest pain that started 2 weeks ago. She states she has been having it all the time and at times pain radiates down her left arm. The pain is sharp at times. She denies nausea or vomiting with it. She has no heart history. She states that she had similar episode several months ago and was seen in the emergency department for same. She has no stents and has not had a heart catheterization. She is a smoker and does drink alcohol. Denies illicit drug use. She denies recent travel or surgery. No prior history of PE or DVT. Prior similar symptoms: Yes PFSH PFSH Medical History Asthma Cirrhosis Depression ETOH abuse GERD (gastroesophageal reflux disease) Hypertension Migraines PTSD (post-traumatic stress disorder) Scoliosis Smoker Home Medications ?Medication ?Instructions ?Recorded ?Last Taken ?Type albuterol sulfate 90 mcg/actuation 2 puff inhalation Q 4H PRN PRN SOB 10/20/22 10/20/22 History aerosol inhaler benzonatate 100 mg capsule 200 mg PO TID PRN Cough 02/0610/17/22 History dextroamphetamine-amphetamine 15 15 mg PO DAILY MOOD 0 10/20/22 Unknown History mg tablet gabapentin 300 mg capsule 300 mg PO QHS NERVE PAIN 02/06 Unknown History trazodone 100 mg tablet 100 mg PO QHS SLEEP 10/20/22 Unknown History pantoprazole 40 mg tablet,delayed 40 mg PO DAILY gerd 02/12/23 Unknown History release venlafaxine 75 mg capsule,extended 75 mg PO DAILY depr ession 02/12/23 Unknown History release 24 hr propranolol 40 mg tablet 40 mg PO BID 05/24/23 21:00 History propranolol 40 mg tablet 40 mg PO BID 30 days #60 tab s 05/24/23 Unknown Rx Allergy/AdvReac Type Severity Reaction Status Date / Time diazepam (From Valium) Allergy Hives Verified 01/14/25 15:24 Penicillins Allergy Hives Verified 01/14/25 15:24 Surgical History History of appendectomy Social History household members: family housing: house Smoking Status: Light Smoker (<10/day) Tobacco: How many years used: 40 alcohol intake: current details: Drinks 6-8 of 24 ounce beers daily substance use type: does not use ROS ROS ED Review of Systems ROS Unobtainable: other Constitutional Constitutional ED: Reports lethargy; Denies chills, fever(s), sweats or weight loss Eyes Eyes: Denies blurry vision, change in vision or diplopia ENT ENT ED: Denies rhinorrhea or sore throat Cardiovascular Cardiovascular: Denies orthopnea or racing heartbeat Respiratory/Chest Respiratory/Chest: Denies cough, dyspnea, dyspnea on exertion, orthopnea or sputum Gastrointestinal Gastrointestinal: Denies abdominal pain, diarrhea, nausea or vomiting Genitourinary Genitourinary ED: Denies dysuria, hematuria or urinary frequency Musculoskeletal Musculoskeletal: Denies arthralgias, back pain, myalgias or neck pain Integumentary Denies abscess, Abrasions or rash Neurologic Neurologic: Denies headache(s) or weakness Psychiatric Psychiatric: Denies anxiety, depression or suicidal thoughts Endocrine Endocrinology: Denies polydipsia, polyphagia or polyuria Hematologic/Lymphatic Hematologic/Lymphatic: Denies easy bleeding, easy bruising or lymphadenopathy Allergic/Immunologic Allergic/Immunologic ED: Denies mouth swelling, tongue swelling or urticaria EXAM Physical Exam Const Vital Signs: 01/14/25 15:24 01/14/25 16:01 01/14/25 16:01 Temperature 97.6 F L Temperature Source Oral Pulse Rate 78 Respiratory Rate 16 Respiratory Effort Normal Non-Labored Blood Pressure 148/81 H Blood Pressure Mean 103 Pulse Ox 98 98 Oxygen Delivery Method Room Air Room Air 01/14/25 16:24 01/14/25 17:00 01/14/25 18:00 Temperature Temperature Source Pulse Rate 78 60 89 Respiratory Rate 16 18 16 Respiratory Effort Blood Pressure 138/90 H 144/86 H 124/78 H Blood Pressure Mean 106 105 93 Pulse Ox 98 98 98 Oxygen Delivery Method 01/14/25 19:00 Temperature Temperature Source Pulse Rate 85 Respiratory Rate 17 Respiratory Effort Blood Pressure 130/74 H Blood Pressure Mean 92 Pulse Ox 98 Oxygen Delivery Method Room Air Positive well nourished and well developed General Appearance ED: well developed and NAD HEENT Reports TM's clear and moist mucous membranes normocephalic and atraumatic; Negative for trauma or tenderness Tympanic Membrane ED: Yes TM's clear Eyes PERRL and EOMs intact bilaterally General Eye ED: Negative for pale conjunctiva or scleral icterus Neck no lymphadenopathy, supple and no JVD General: Negative for tenderness Chest Wall inspection of chest normal and palpation of chest normal Chest: Negative for tenderness Resp normal respiratory effort and clear to auscultation bilaterally Effort and Inspection: Negative for respiratory distress or pain with movement Auscultation: Negative for rhonchi, wheezes or diminished lung sounds Cardio regular rate, regular rhythm, S1 normal heart sound, S2 normal heart sound and no murmurs Peripheral Pulses: pulses 2+ throughout GI normal to inspection, nondistended, normoactive bowel sounds, soft to palpation, non-tender, non-distended and no masses Back/Spine no CVA tenderness and no thoracic nor lumbar tenderness Extremity normal to inspection General Extremety ED: Negative for edema General Extremity: Negative for edema Neuro oriented x3, CN's II-XII intact bilaterally, no sensory deficits noted and gait normal Sensorium / Orientation: awake, alert, oriented to person, oriented to place and oriented to time Motor Exam: strength 5/5 throughout and strength abnormal Psych mental status grossly normal Skin no rashes or lesions noted and no wounds MDM MDM MDM Narrative Medical decision making narrative: Patient presents with chest pain that she has had for several weeks. Was seen in the emergency department for same several months ago. Clinically looks well. She has history of alcohol abuse. Denies recent travel or surgery. EKG obtained on arrival shows sinus rhythm with a ventricular rate of 75 bpm with a slightly prolonged QT. When compared with prior EKG from May 2024 no significant changes noted. CBC with differential count of 5.6 with hemoglobin 12.1 and platelet count of 267. Chemistries showed a slightly depressed potassium at 3.3. BUN 4 and creatinine 0.46. D-dimer elevated 0.85. Alcohol was elevated at 365. CTA of the chest will be obtained to rule out PE. Patient's delta troponin was normal. I do not feel she is having acute coronary syndrome. Patient is intoxicated and has history of alcohol abuse. She does have her uncle that is willing to take her home and stay with her. Patient does not want alcohol detox here and states she will be going to a detox facility as an outpatient Lab Data Attestation: I reviewed the patient's lab results. Labs: Laboratory Results - last 24 hr 01/14/25 01/14/25 15:54 18:43 WBC 5.6 RBC 3.69 L Hgb 12.1 Hct 35.5 L MCV 96.2 MCH 32.8 H MCHC 34.1 RDW Std Deviation 50.4 H RDW Coeff of Alok 14.5 Plt Count 267 MPV 9.6 Immature Gran % (Auto) 0.200 Neut % (Auto) 31.9 L Lymph % (Auto) 59.6 H Piatt % (Auto) 5.5 Eos % (Auto) 1.4 Baso % (Auto) 1.4 H Absolute Neuts (auto) 1.8 L Absolute Lymphs (auto) 3.36 Nucleated RBC % 0 Reactive Lymphocytes 1+ Platelet Estimate A PT 13.7 INR 1.0 D-Dimer Quant (PE/DVT) 0.85 H* Sodium 144 Potassium 3.3 Chloride 106 Carbon Dioxide 22.7 Anion Gap 15 BUN 4 Creatinine 0.46 L Est GFR (MDRD) Non-Af 119 BUN/Creatinine Ratio 8.9 L Glucose 87 Calcium 8.5 Troponin T High Sens 10 Troponin T Hi Sens 2 Hr 11 Ethyl Alcohol 365.0 H* Radiography Diagnostic Testing: Clinical Impression(s) from Imaging Studies Chest X-Ray 01/14/25 15:45 IMPRESSION: No acute process in the chest. [facility] Chest CTA 01/14/25 16:51 IMPRESSION: 1. No acute pulmonary embolism. 2. Irregular cystic lesion within the left upper lobe which communicates with the bronchial tree. Additional smaller right upper lobe cystic lesion. There is associated emphysema. Findings are likely due to emphysema. Additional considerations include congenital lung anomaly (such as CPAM), cystic lung disease or neoplasm. Nonemergent outpatient high-resolution chest CT is recommended if not recently performed for further evaluation. 3. Tiny bilateral pulmonary nodules, likely noncalcified granulomas or scarring. These could also be evaluated on high-resolution CT. Reading Location: [facility] 1 view chest x-ray obtained interpreted by myself as no evidence of infiltrate or pneumothorax or acute disease process. Radiology in agreement. EKG Initial EKG: Attestation: I personally reviewed and interpreted this EKG as follows: Comments: Sinus rhythm with ventricular rate of 75 bpm with prolonged QT of 442 and QTc of 493. Discharge Plan Triage Chief Complaint: Chest Pain ED Provider: Tyrell Dickerson Dx/Rx/DC Orders Clinical Impression: Chest pain, Alcohol intoxication Instructions: ED Chest Pain, Uncertain Cause, ED Alcohol Intoxication Prescriptions: No Action trazodone 100 mg tablet 100 mg PO QHS Patient Comments: take 1 tablet by mouth at bedtime if needed benzonatate 100 mg capsule 200 mg PO TID PRN (Reason: Cough) Patient Comments: take 1 to 2 capsules by mouth three times a day if needed for cough dextroamphetamine-amphetamine 15 mg tablet 15 mg PO DAILY Patient Comments: take 1 tablet by mouth once daily gabapentin 300 mg capsule 300 mg PO QHS Patient Comments: take 1 capsule by mouth at bedtime albuterol sulfate 90 mcg/actuation HFA aerosol inhaler 2 puff INHALATION Q4H PRN PRN (Reason: SOB) Patient Comments: inhale 2 puffs by mouth and INTO THE LUNGS every 4 hours if neede... (REFER TO PRESCRIPTION NOTES). venlafaxine 75 mg capsule,extended release 24hr 75 mg PO DAILY Patient Comments: take 1 capsule by mouth once daily pantoprazole 40 mg tablet,delayed release (DR/EC) 40 mg PO DAILY Patient Comments: take 1 tablet by mouth once daily 30 MINUTES BEFORE A MEAL propranolol 40 mg tablet 40 mg PO BID propranolol 40 mg tablet 40 mg PO BID 30 Days Qty: 60 0RF Primary Care Provider: Ninoska Walsh Referrals: Ninoska Walsh MD [Primary Care Provider] - 3-5 Days Print Language: Uzbek Disposition Disposition: Home, Self Care
[2025-01-14] MEDS: Aspirin 81 MG TAB.CHEW 324 MG PO (15:59)
[2025-01-14] MEDS: 0.9% Normal Saline (1000mL) 1,000 ML 150 ML IV (15:59)
[2025-01-14 16:01] VITALS: O2SAT 98
[2025-01-14 16:21] LABS: Absolute Lymphocyte Count 3.36 X10^3/uL (0.83-4.51); Absolute Neutrophil Count 1.8 X10^3/uL (2.0-7.7); Basophil# 0.08 X10^3/uL; Basophil% 1.4 % (0-1); Eosinophil# 0.08 X10^3/uL; Eosinophils% 1.4 % (0-5); Hematocrit 35.5 % (37-47); Hemoglobin 12.1 g/dL (12.0-15.0); Lymphocyte # 3.36 X10^3/ul (0.83-4.51); Lymphocyte % 59.6 % (19-41); Mean Corp Hgb Conc 34.1 g/dL (32-36); Mean Corpuscular Hgb 32.8 pg (27.0-32.0); Mean Corpuscular Volume 96.2 fL (81-99); Mean Platelet Vol. 9.6 fl (6.2-12.0); Monocyte# 0.31 X10^3/uL; Monocyte% 5.5 % (0-10); NRBC Flagged by Analyzer 0 % (0-5); Neutrophil % 31.9 % (47-70); POSITIVE MORPHOLOGY YES; Platelet Count 267 K/mm3 (150-450); RBC Distribution Width CV 14.5 % (11.6-14.6); RBC Distribution Width SD 50.4 fl (35.1-43.9); Red Blood Count 3.69 M/mm3 (4.2-5.4); White Blood Count 5.6 K/mm3 (4.4-11.0)
[2025-01-14 16:24] VITALS: BP 138/90; PULSE 78; RESP 16; O2SAT 98
[2025-01-14 16:33] LABS: Differential Indicated SCAN CRITERIA MET
[2025-01-14 16:37] LABS: Prothrombin Time (Protime)PT. 13.7 SECONDS (11.7-14.9)
[2025-01-14 16:45] LABS: D-Dimer Quantitative (DVT/PE) 0.85 FEU/ug/m (0.27-0.49)
[2025-01-14 16:46] LABS: Troponin T High Sensitivity 10 ng/L (<=14)
[2025-01-14 16:49] LABS: Anion Gap 15 (5-15); BUN 4 mg/dL (4-19); BUN/Creat Ratio 8.9 RATIO (10-20); Calcium,Total 8.5 mg/dL (7.6-11.0); Carbon Dioxide 22.7 mmol/L (21.0-32.0); Chloride 106 mmol/L (98-108); Creatinine, Serum 0.46 mg/dL (0.70-1.20); EST Glomerular Filtration Rate 119 (>60); Glucose 87 mg/dL (70-99); Potassium 3.3 mmol/L (3.3-5.1); Sodium Level 144 mmol/L (133-145)
--- NOTE | 2025-01-14 16:51 | CT_ITS ---
PROCEDURE: CTA CHEST W/WO CONTRAST 01/14/2025 REASON FOR EXAM: 49-year-old female, CHEST PAIN, ELEVATED D-DIMER TECHNIQUE: CTA axial imaging of the chest with intravenous contrast. Coronal and Sagittal reconstruction series were provided. 3D, 3D post processing, 3D reconstructions, Maximum intensity projection (MIPs) Volume rendering and Shaded surface rendering was provided. PATIENT PREPARATION: Per protocol CONTRAST: Isovue-300 VOLUME: 100ML One or more dose reduction techniques were used (e.g., Automated exposure control, adjustment of the mA and/or kV according to patient size, use of iterative reconstruction technique). RADIATION DOSE SUMMARY: CTDlvol: 14 mGy DLP: 200 mGycm COMPARISON: Same day chest radiograph. FINDINGS: Hardware: None. Lymph nodes: No axillary, mediastinal or hilar lymphadenopathy. Heart: The heart is normal in size without pericardial effusion. The great vessels are normal in caliber. No coronary artery calcifications. Minimal calcific plaque of the thoracic aorta. Pulmonary Vessels: No central filling defect within the segmental or subsegmental pulmonary arteries. Lungs and Airways: The central airways are clear. Mild emphysema and scattered areas of scarring. There is a thin walled small irregular cystic lesion within the left upper lobe measuring approximately 2.0 x 1.3 cm (series 2, image 157). This communicates with the bronchial tree. Additional tiny cystic lesion within the right upper lobe (series 2, image 149). Tiny bilateral pulmonary nodules (for example within the left upper lobe series 2, images 169, 173 and 183). No pleural effusion or pneumothorax. Upper Abdomen: Unremarkable. Bones: No aggressive osseous lesions. CT/CTA Chest W/WO Contrast IMPRESSION: 1. No acute pulmonary embolism. 2. Irregular cystic lesion within the left upper lobe which communicates with t he bronchial tree. Additional smaller right upper lobe cystic lesion. There is associated emphysema. Findings are likely due to emphysema. Additional considerations include congenital lung anomaly (such as CPAM), cystic lung disease or neoplasm. Nonem ergent outpatient high-resolution chest CT is recommended if not recently performed for further evaluation. 3. Tiny bilateral pulmonary nodules, likely noncalcified granulomas or scarring . These could also be evaluated on high-resolution CT. Reading Location: [id number]
[2025-01-14 17:00] VITALS: BP 144/86; PULSE 60; RESP 18; O2SAT 98
[2025-01-14 17:43] LABS: Platelet Estimate A (ADEQ); Reactive Lymphocyte 1+
[2025-01-14 18:00] VITALS: BP 124/78; PULSE 89; RESP 16; O2SAT 98
[2025-01-14 19:00] VITALS: BP 130/74; PULSE 85; RESP 17; O2SAT 98
[2025-01-14 19:56] LABS: Troponin T High Sens 2 HR 11 ng/L (<=14)
== END 2025-01-14 20:34 | disposition home or self-care (01) ==
PROVIDERS: Emergency Provider Emergency Medicine; PCP Internal Medicine; Visit Provider Emergency Medicine
DX: R07.9 Chest pain, unspecified (principal); I10 Essential (primary) hypertension; F10.129 Alcohol abuse with intoxication, unspecified; F17.200 Nicotine dependence, unspecified, uncomplicated; F32.A Depression, unspecified; Z79.899 Other long term (current) drug therapy; Y90.8 Blood alcohol level of 240 mg/100 ml or more
CPT/HCPCS: 71045; 71275; 80048; 82077; 84484; 85025; 85379; 85610; 93005; 96360; 96361; 99284; Q9967; A4216

== ENCOUNTER 2025-07-07 14:44 | Emergency (ER) | payer MEDICAID, SELFPAY ==
[2025-07-07 14:47] VITALS: BP 126/84; PULSE 103; RESP 20; TEMP 36.2; O2SAT 100; BMI 21.8
--- NOTE | 2025-07-07 15:30 | ED.RN ---
Pt walking out of room through triage/waiting room and states tell them I'm leaving. This RN ensured pt did not have an IV and informed pt that Dr. Forman has signed up for her case and should be in to see her shortly if she is still interested. Pt states, no, I'm leaving.
--- OUTSIDE RECORDS SUMMARY | 2025-07-07 16:56 | XMS RPT_ITS | CCD ---
Author Organization [facility] Care Team Providers Care Superintendent Mechanical Name Role Phone MONCHO MANNING Attending Unavailable GANTA, NINOSKA Primary Care Unavailable BRIA LEE Attending Unavailable OLDER, ERNESTINE Referring Unavailable GANTA, NINOSKA Primary Care Unavailable OLDER, ERNESTINE Referring Unavailable GANTA, NINOSKA Primary Care Unavailable OLDER, ERNESTINE Referring Unavailable GANTA, NINOSKA Primary Care Unavailable OLDER, ERNESTINE Referring Unavailable OLDER, ERNESTINE Referring Unavailable GANTA, NINOSKA Primary Care Unavailable OLDER, ERNESTINE Referring Unavailable GANTA, NINOSKA Primary Care Unavailable SELF Referring Unavailable OLDER, ERNESTINE Attending Unavailable GANTA, NINOSKA Primary Care Unavailable FLOR LOZANO Attending Unavailable KAPIL, BARBARA Referring Unavailable GANTA, NINOSKA Primary Care Unavailable KAPIL, BARBARA Attending Unavailable KAPIL, BARBARA Referring Unavailable GANTA, NINOSKA Primary Care Unavailable GANTA, NINOSKA Primary Care Unavailable GANTA, NINOSKA Attending Unavailable GANTA, NINOSKA Attending Unavailable GANTA, NINOSKA Primary Care Unavailable Allergies Allergy Classification Reported Allergen(s) Allergy Type Date of Onset Reaction(s) Facility (1 source) diazePAM; Translations: [DIAZEPAM] Drug Allergy 9 [facility] Repository (1 source) Dust; Translations: [DUST] Propensity to adverse reactions (disorder) 3 [facility] Repository (1 source) Penicillins; Translations: [PENICILLINS] Propensity to adverse reactions to drug (disorder) 6 [facility] Repository (1 source) Seasonal allergy; Translations: [SEASONAL ALLERGIES] Propensity to adverse reactions (disorder) 4 [facility] Repository Problems Active Problems Problem Classification Problem Date Documented Date Episodic/Chronic Alcohol-related disorders (5 sources) Alcoholic cirrhosis of liver without ascites; Translations: [Alcohol dependence, uncomplicated] Onset: 11-26-2020 Chronic Attention-deficit, conduct, and disruptive behavior disorders (1 source) Attention-deficit hyperactivity disorder, unspecified type; Translations: [Attention deficit hyperactivity disorder (ADHD), unspecified ADHD type] Onset: 01-16-2021 Chronic Cancer of cervix (1 source) Atypical squamous cells of undetermined significance on cytologic smear of cervix (ASC-US); Translations: [ASCUS with positive high risk HPV cervical] Onset: 04-12-2025 Episodic Chronic obstructive pulmonary disease and bronchiectasis (1 source) Chronic obstructive pulmonary disease, unspecified; Translations: [Moderate COPD (chronic obstructive pulmonary disease) (HCC)] Onset: 07-05-2025 Chronic Deficiency and other anemia (1 source) Iron deficiency anemia, unspecified; Translations: [Microcytic anemia] Onset: 06-18-2025 Episodic Esophageal disorders (1 source) Gastro-esophageal reflux disease without esophagitis; Translations: [Gastroesophageal reflux disease, unspecified whether esophagitis present] Onset: 07-13-2024 Chronic Headache; including migraine (1 source) Migraine, unspecified, intractable, without status migrainosus; Translations: [Intractable migraine without status migrainosus, unspecified migraine type] Onset: 10-16-2014 Chronic Headache; including migraine (1 source) Headache; including migraine; Translations: [Headache, unspecified] Onset: 04-30-2023 Nonspecific chest pain (1 source) Chest pain, unspecified; Translations: [Chest pain, unspecified] Onset: 04-30-2023 Episodic Other circulatory disease (1 source) Elevated blood-pressure reading, without diagnosis of hypertension; Translations: [Elevated blood-pressure reading, without diagnosis of hypertension] Onset: 04-30-2023 Episodic Other ear and sense organ disorders (1 source) Unspecified hearing loss, bilateral; Translations: [Decreased hearing of both ears] Onset: 06-05-2025 Chronic Other ear and sense organ disorders (1 source) Tinnitus, bilateral; Translations: [Tinnitus of both ears] Onset: 06-05-2025 Episodic Other lower respiratory disease (1 source) Other forms of dyspnea; Translations: [Dyspnea on exertion] Onset: 06-18-2025 Episodic Other upper respiratory disease (1 source) Other seasonal allergic rhinitis; Translations: [Seasonal allergies] Onset: 06-05-2025 Chronic Sexually transmitted infections (not HIV or hepatitis) (1 source) Cervical high risk human papillomavirus (HPV) DNA test positive; Translations: [ASCUS with positive high risk HPV cervical] Onset: 04-12-2025 Episodic Substance-related disorders (2 sources) Nicotine dependence, cigarettes, uncomplicated; Translations: [Nicotine dependence, unspecified, uncomplicated] Onset: 06-18-2025 Chronic Past or Other Problems Problem Classification Problem Date Documented Date Episodic/Chronic Immunizations and screening for infectious disease (1 source) Encounter for screening for human papillomavirus (HPV); Translations: [Encounter for screening for human papillomavirus (HPV)] Onset: 03-25-2025 Episodic Other screening for suspected conditions (not mental disorders or infectious disease) (2 sources) Encounter for screening for malignant neoplasm of cervix; Translations: [Encounter for screening mammogram for malignant neoplasm of breast] Onset: 03-25-2025 Episodic Residual codes; unclassified (1 source) Insomnia, unspecified; Translations: [Insomnia, unspecified type] Onset: 12-27-2014 Episodic Residual codes; unclassified (1 source) Tobacco use; Translations: [Tobacco abuse disorder] Onset: 01-29-2016 Episodic Results Test Name Value Interpretation Reference Range Facility CNOVon 07-05-2025 CNOV Office Visit (PULMWS ) FRANCESCO SOTO ([id number]) 1975 F Date Time Provider Department 07/05/25 1:30 PM BRIA LEE PULMWS During your visit today, we recorded the following information about you: Pulse Blood pressure Weight Height 102/minute 160/93 67 kg 1.753 m Bria Lee MD 07/05/2025 2:12 PM Signed . Respiratory Hardy Note Patient name: Francesco Soto PCP: Ninoska Newton MD Referring Physician: Ernestine Poole CNP Consultation requested by Ernestine Poole CNP for an opinion regarding LAINEZ/COPD. My final recommendations will be communicated back to the requesting physician by way of shared Medical record or letter to requesting physician via US mail. CC: MIGEL HPI: Francesco Soto 50 year old female smoker 40 pack years with PMH significant for syphillis, HTN, bipolar d/o, alcohol abuse with cirrhosis of the liver recently diagnosed with obstructive lung disease. DATA: PFT 06/18/2025: Labs: Eosinophils % % 2.1 1.2 1.5 Abs Eosin <0.46 k/uL 0.12 0.07 Imaging / Diagnostic Studies: DATE OF EXAM: Jun 11 2025 3:50PM [id number] [id number] - XR CHEST 2V FRONTAL/LAT / IMPRESSION: Pulmonary infiltrates versus atelectasis in the left lower lung. EXAMINATION: CTA OF THE CHEST 04/30/2023 10:06 pm [facility] Lungs/pleura: The lungs are without acute process. There are signs of centrilobular emphysema more so near the lung apices. There are pneumatocele is a projecting over the left upper lung. No definite focal wall thickening is observed. There is minimal bibasilar ground-glass opacity that may represent dependent edema. No focal consolidation is noted. No evidence of pleural effusion or pneumothorax. IMPRESSION: 1. No evidence of pulmonary embolism or acute pulmonary abnormality. 2. Underlying signs of paraseptal and centrilobular emphysema. 3. There is minimal bibasilar ground-glass opacity that may represent dependent edema PAST MEDICAL HISTORY Diagnosis Date Alcohol withdrawal (HCC) Alcoholic cirrhosis of liver (HCC) Bipolar 1 disorder (HCC) Complex ovarian cyst 01/02/2015 Depression Diarrhea, unspecified 05/2020 Essential hypertension Insomnia Nausea AND vomiting 05/20/2020 Syphilis 03/2024 ALLERGIES Allergen Reactions Diazepam Rash, Hives Dust Other: See Comments Sneezing and watery eyes Penicillins Hives Seasonal Allergies Itching fluticasone (FLONASE) 50 mcg/actuation nasal spray Use 2 sprays in each nostril once daily. Rinse mouth after use. lurasidone (LATUDA) 40 mg tablet Take 80 mg by mouth once daily. (Patient taking differently: Take 120 mg by mouth once daily. 120 mg daily) gabapentin (NEURONTIN) 300 mg capsule Take 1 capsule by mouth daily at bedtime for 180 days. rizatriptan (MAXALT) 10 mg tablet Take 1 tablet by mouth, if no improvement after 2 hours you may repeat dose. Do not exceed 30mg in 24 hours. traZODone (DESYREL) 100 mg tablet Take 1 tablet by mouth at bedtime as needed. pantoprazole DR (PROTONIX) 40 mg tablet Take 1 tablet by mouth once daily. 30 minutes before meal propranolol (INDERAL) 40 mg tablet Take 1 tablet by mouth every 12 hours. sucralfate (CARAFATE) 1 gram tablet Take 1 tablet by mouth before meals and at bedtime. albuterol HFA (PROVENTIL HFA, VENTOLIN HFA) 90 mcg/actuation inhaler Inhale 2 Puffs as instructed every 4 hours as needed for wheezing/shortness of breath. fenofibrate nanocrystallized (TRICOR) 48 mg tablet Take 1 tablet by mouth once daily. thiamine (VITAMIN B1) 100 mg tablet Take 1 tablet by mouth once daily. tecuieqhil-vyucdqsn-gm rmoterol (BREZTRI AEROSPHERE) 160-9-4.8 mcg/actuation HFA aerosol inhaler Inhale 2 puffs as instructed two times a day. lurasidone (LATUDA) 20 mg tablet 20 mg. (Patient not taking: Reported on 07/05/2025) SOCIAL HISTORY[1] Occupational dust exposure for approximately 1 year Pets: Cats FAMILY HISTORY Problem Relation Age of Onset Alcohol/Drug Mother other (vascular issues) Mother Heart Father of [place] at the age of 46 Diabetes Sister Cancer Maternal Grandmother lung Glaucoma Maternal Grandmother Heart Maternal Grandfather Asthma Daughter Diabetes Son Diabetes Paternal Aunt PAST SURGICAL HISTORY Procedure Laterality Date APPENDECTOMY CAUTERY CERVIX CRYOCAUTERY INITIAL/REPEAT COLONOSCOPY W/BIOPSY SINGLE/MULTIPLE 05/20/2020 Internal hemorrhoids, biopsies negative EGD TRANSORAL BIOPSY SINGLE/MULTIPLE 05/20/2020 Small hiatal hernia, Chronic gastritis, Mild-Moderate KNEE ARTHROSCOPY/SURGERY 1999, 2003,2004 2 on left AND 1 on right TONSILLECTOMY PRIMARY/SECONDARY Tonsillectomy TUBAL LIGATION HX PMH, Social history, family history and surgical history reviewed and updated in EMR REVIEW OF SYSTEMS: CONSTITUTIONAL: No fevers, chills, nightsweats, unintended weight loss HEENT: Positive rhinorrhea wit (more content not included)... Normal [facility] Kacy 06-25-2025 CNPN Telephone (INTMWS) FRANCESCO SOTO ([id number]) 1975 F Date Time Provider Department 06/25/25 ERNESTINE POOLE During your visit today, we recorded the following information about you: Ty Samuels LPN 06/25/2025 2:08 PM Signed Patient calling said [facility] has not gotten her referral. She has been trying to get an appt set up. Printed face sheet, consult, insurance card copy, office notes and faxed to [phone] as requested. Allergies As of Date: 06/25/2025 Noted Allergy Reaction DIAZEPAM 01/31/2019 2 - Rash 4 - Hives DUST 12/13/2012 14 - Other: See Comments Comments: Sneezing and watery eyes PENICILLINS 12/05/2015 4 - Hives SEASONAL ALLERGIES 07/12/2014 9 - Itching Date Reviewed: 06/18/2025 Reviewed by: Susie Monson RPFT - Fully Assessed Reason for Visit: fax ENT referral to [facility] [Other] Prescriptions as of 06/25/2025 - fluticasone (FLONASE) 50 mcg/actuation nasal spray Use 2 sprays in each nostril once daily. Rinse mouth after use. - lurasidone (LATUDA) 20 mg tablet 20 mg. - lurasidone (LATUDA) 40 mg tablet Take 80 mg by mouth once daily. - gabapentin (NEURONTIN) 300 mg capsule Take 1 capsule by mouth daily at bedtime for 180 days. - rizatriptan (MAXALT) 10 mg tablet Take 1 tablet by mouth, if no improvement after 2 hours you may repeat dose. Do not exceed 30mg in 24 hours. - traZODone (DESYREL) 100 mg tablet Take 1 tablet by mouth at bedtime as needed. - pantoprazole DR (PROTONIX) 40 mg tablet Take 1 tablet by mouth once daily. 30 minutes before meal - propranolol (INDERAL) 40 mg tablet Take 1 tablet by mouth every 12 hours. - sucralfate (CARAFATE) 1 gram tablet Take 1 tablet by mouth before meals and at bedtime. - albuterol HFA (PROVENTIL HFA, VENTOLIN HFA) 90 mcg/actuation inhaler Inhale 2 Puffs as instructed every 4 hours as needed for wheezing/shortness of breath. - fenofibrate nanocrystallized (TRICOR) 48 mg tablet Take 1 tablet by mouth once daily. - thiamine (VITAMIN B1) 100 mg tablet Take 1 tablet by mouth once daily. Meds Comments as of 12/23/2020: Pt states she is no longer taking medications. Only uses Metoprolol if chest hurts. Uses Neurontin if she feels she has Bipolar Mode Uses Celexa prn if she feels depressed. 12/23/20 - Patient informs the only medication she is currently taking is the Adderall. All other medications have been stopped Brit Bear RN Problem List As Of Date 06/25/2025 Noted Resolved Chest pain [R07.9] 07/12/2014 04/29/2016 Elevated blood sugar [R73.9] 07/12/2014 04/29/2016 MVP (mitral valve prolapse) [I34.1] 10/16/2014 10/05/2016 Depression [F32.A] 10/16/2014 Alcohol dependence (HCC) [F10.20] 10/16/2014 Migraines [G43.909] 10/16/2014 Abdominal pain [R10.9] 12/27/2014 09/17/2016 Insomnia [G47.00] 12/27/2014 Missed periods [N92.6] 04/01/2015 04/29/2016 Tobacco abuse disorder [Z72.0] 01/29/2016 Bipolar 1 disorder (HCC) [F31.9] 09/17/2016 H. pylori infection [A04.8] 12/06/2018 Alcoholic cirrhosis of liver without ascites (H*01/16/2021 Attention deficit hyperactivity disorder (ADHD)*01/16/2021 Alcohol intoxication (HCC) [F10.929] 05/30/2023 Diagnosed: 05/30/2023 Alcohol withdrawal syndrome (HCC) [F10.939] 10/23/2022 Diagnosed: 05/30/2023 Polysubstance dependence (HCC) [F19.20] 05/30/2023 Diagnosed: 05/30/2023 Alcoholism (HCC) [F10.20] 03/25/2025 Encounter Status:Closed by TY SAMUELS on 06/25/25 Normal [facility] Ferritin SerPl-mCncon 2024 Ferritin [Mass/Vol] 118.0 ng/mL Normal 14.7-205.1 [facility] Comment on above: Order Comment: Speci men Type: BLOOD SPECIMENOrdering Facility: [facility] Address: [address] [place] [address] Performed By: #### 5 0190-8, 6-4 ####[facility] LABIA [id number] [place] [address] [place] Iron and Iron binding capaci ty panelon 06-18-2025 Iron [Mass/Vol] 100 ug/dL Normal 41-186 [facility] Comment on above: Order Comment: Speci men Type: BLOOD SPECIMENOrdering Facility: [facility] Address: [address] [place] [address] Performed By: #### 5 0190-8, 2275-4 ####[facility] LABIA [id number] [place] [address] [place] Iron binding capacity [Mass/Vol] 404 ug/dL High 232-386 [facility] Comment on above: Order Comment: Speci men Type: BLOOD SPECIMENOrdering Facility: [facility] Address: [address] [place] [address] Performed By: #### 5 0190-8, 2275-4 ####[facility] LABIA [id number] [place] [address] [place] Iron/TIBC [Molar ratio] 24.8 % Normal 15.0-57.0 [facility] Comment on above: Order Comment: Speci men Type: BLOOD SPECIMENOrdering Facility: [facility] Address: [address] [place] [address] Performed By: #### 5 0190-8, 2276-4 ####[facility] LABCLIA [id number] RACHEL BARAKAT [id number] [place] [place] [address] [place] LUNG DIFFUSION CAPACITY (DEBORA O)on 06-18-2025 LUNG DIFFUSION CAPACITY (DLCO) [facility] [place] [address] [place] [address] Test Date: 2025-06-18 Pat Name: FRANCESCO SOTO Department: Room: Gender: Female Soil Specialist: : 1975 Requested By: Order Number: [id number] Reading MD: Bria Lee MD Interpretive Statements Medications and Allergies were reviewed for possible drug interactions per policy. No contraindications or sensitivities were noted. Meds taken: No inhaled respiratory medications taken before testing. 4 puffs Albuterol (360 mcg) delivered by MDI via holding chamber. HR pre = 70/min, HR post = 71/min. DLCO is repeatable. best IVC for DLCO is 78% of target. PRE-BRONCHODILATOR: The two largest FVCs were repeatable. The two largest FEV1s were repeatable. Time to Peak Flow greater than ATS/ERS standard, FEV1 may not be valid. POST-BRONCHODILATOR: Current ATS/ERS acceptability and repeatability standards for spirometry met. Start of test and EOFE criteria met. IMPRESSION: Spirometry indicates moderate obstruction. Negative bronchodilator response. The diffusing capacity (uncorrected for hemoglobin) is reduced. Electronically Signed On 06-18-2025 15:56:20 EDT by Bria Lee MD ID: [id number] Name: FRANCESCO SOTO Race: Black or Ht: 67.52 in Wt: 156.00 lbs Age: 50 Gender: Female : 1975 Dx: Other forms of dyspnea Smoking Hx: Non-smoker Doctor: ERNESTINE POOLE Test Date: 06/18/2025 Site: [place] Tech: Susie Monson PRE-BRONCH POST-BRONCH Serge LLN Pred ULN %Pred ZScore Serge %Pred %Chg ZScore SPIROMETRY FVC 3.10 2.82 3.77 4.73 82 -1.15 3.31 87 5 -0.79 FEV1 1.76 2.26 3.04 3.79 57 -2.63 1.90 62 4 -2.37 FEV1/FVC 0.57 0.69 0.81 0.90 70 -3.01 0.57 71 0 -2.96 FEFMax 3.96 4.64 6.87 9.10 57 -2.15 4.20 61 6 -1.97 FEF50 0.93 2.30 3.91 5.52 23 -3.05 1.17 29 26 -2.80 FIF50 1.53 2.41 57 FEF50/FIF50 0.60 90-100 0.49 -19 FIVC 2.35 2.71 15 GYO02-51 0.63 1.33 2.68 4.46 23 -2.85 0.83 30 31 -2.47 ExpiredTime 14.42 15.90 10 TimeToFEFMax 0.17 0.11 -35 [place] 0.10 0.07 -25 VolExtrap% 3 2 -30 LUNG DIFFUSION DLCOunc 11.86 17.74 22.66 28.56 52 -4.15 DLCOStdPB 11.65 17.74 22.66 28.56 51 -4.25 VA 4.05 4.45 5.42 6.49 74 -2.37 Kco 2.88 3.28 4.19 5.21 68 -2.44 Comments: Medications and Allergies were reviewed for possible drug interactions per policy. No contraindications or sensitivities were noted. Meds taken: No inhaled respiratory medications taken before testing. 4 puffs Albuterol (360 mcg) delivered by MDI via holding chamber. HR pre = 70/min, HR post = 71/min. DLCO is repeatable. best IVC for DLCO is 78% of target. PRE-BRONCHODILATOR: The two largest FVCs were repeatable. The two largest FEV1s were repeatable. Time to Peak Flow greater than ATS/ERS standard, FEV1 may not be valid. POST-BRONCHODILATOR: Current ATS/ERS acceptability and repeatability standards for spirometry met. Start of test and EOFE criteria met. Normal [facility] SPIROMETRY WITH DILATOR IF O BSTRUCTEDon 06-18-2025 SPIROMETRY WITH DILATOR IF OBSTRUCTED [facility] [address] [place] [address] Test Date: 2025-06-18 Pat Name: FRANCESCO SOTO Department: Room: Gender: Female Soil Specialist: : 1975 Requested By: Order Number: [id number] Reading MD: Bria Lee MD Interpretive Statements Medications and Allergies were reviewed for possible drug interactions per policy. No contraindications or sensitivities were noted. Meds taken: No inhaled respiratory medications taken before testing. 4 puffs Albuterol (360 mcg) delivered by MDI via holding chamber. HR pre = 70/min, HR post = 71/min. DLCO is repeatable. best IVC for DLCO is 78% of target. PRE-BRONCHODILATOR: The two largest FVCs were repeatable. The two largest FEV1s were repeatable. Time to Peak Flow greater than ATS/ERS standard, FEV1 may not be valid. POST-BRONCHODILATOR: Current ATS/ERS acceptability and repeatability standards for spirometry met. Start of test and EOFE criteria met. IMPRESSION: Spirometry indicates moderate obstruction. Negative bronchodilator response. The diffusing capacity (uncorrected for hemoglobin) is reduced. Electronically Signed On 06-18-2025 15:56:20 EDT by Bria Lee MD ID: [id number] Name: FRANCESCO SOTO Race: Black or Ht: 67.52 in Wt: 156.00 lbs Age: 50 Gender: Female : 1975 Dx: Other forms of dyspnea Smoking Hx: Non-smoker Doctor: ERNESTINE POOLE Test Date: 06/18/2025 Site: Tech: Susie Monson PRE-BRONCH POST-BRONCH Serge LLN Pred ULN %Pred ZScore Serge %Pred %Chg ZScore SPIROMETRY FVC 3.10 2.82 3.77 4.73 82 -1.15 3.31 87 5 -0.79 FEV1 1.76 2.26 3.04 3.79 57 -2.63 1.90 62 4 -2.37 FEV1/FVC 0.57 0.69 0.81 0.90 70 -3.01 0.57 71 0 -2.96 FEFMax 3.96 4.64 6.87 9.10 57 -2.15 4.20 61 6 -1.97 FEF50 0.93 2.30 3.91 5.52 23 -3.05 1.17 29 26 -2.80 FIF50 1.53 2.41 57 FEF50/FIF50 0.60 90-100 0.49 -19 FIVC 2.35 2.71 15 BAJ24-45 0.63 1.33 2.68 4.46 23 -2.85 0.83 30 31 -2.47 ExpiredTime 14.42 15.90 10 TimeToFEFMax 0.17 0.11 -35 [place] 0.10 0.07 -25 VolExtrap% 3 2 -30 LUNG DIFFUSION DLCOunc 11.86 17.74 22.66 28.56 52 -4.15 DLCOStdPB 11.65 17.74 22.66 28.56 51 -4.25 VA 4.05 4.45 5.42 6.49 74 -2.37 Kco 2.88 3.28 4.19 5.21 68 -2.44 Comments: Medications and Allergies were reviewed for possible drug interactions per policy. No contraindications or sensitivities were noted. Meds taken: No inhaled respiratory medications taken before testing. 4 puffs Albuterol (360 mcg) delivered by MDI via holding chamber. HR pre = 70/min, HR post = 71/min. DLCO is repeatable. best IVC for DLCO is 78% of target. PRE-BRONCHODILATOR: The two largest FVCs were repeatable. The two largest FEV1s were repeatable. Time to Peak Flow greater than ATS/ERS standard, FEV1 may not be valid. POST-BRONCHODILATOR: Current ATS/ERS acceptability and repeatability standards for spirometry met. Start of test and EOFE criteria met. FVC_PRE (L) : 3.10 L FVC_POST (L) : 3.31 L FVC_PRED (L) : 3.77 L FVC_LLN (L) : 2.82 L FVC_ULN (L) : 4.73 L FEV1_PRE (L) : 1.76 L FEV1_POST (L) : 1.90 L FEV1_PRED (L) : 3.04 L FEV1_LLN (L) : 2.26 L FEV1_ULN (L) : 3.79 L FEV1/FVC_PRE (%) : 56 % FEV1/FVC_POST (%) : 56 % FEV1/FVC_PRED (%) : 81 % FEV1/FVC_LLN (%) : 69 % QPB35_PZB (L/S) : 2.93 L/S UIE27_OCMN (L/S) : 3.55 L/S ZKX98_PHJ (L/S) : 0.21 L/S AQX06_YPOQ (L/S) : 0.29 L/S CTI88_UDTY (L/S) : 0.80 L/S OIL29_JRW (L/S) : 0.31 L/S PKV89_BBP (L/S) : 1.80 L/S JTO77-23%_PRE (L/S) : 0.63 L/S AVP05-91%_POST (L/S) : 0.83 L/S HEG60-99%_PRED (L/S) : 2.68 L/S OAN96-40%_LLN (L/S) : 1.33 L/S PEF_PRE (L/S) : 3.96 L/S PEF_POST (L/S) : 4.20 L/S PEFMAX_LLN (L/S) : 4.64 L/S PEFMAX_ULN (L/S) : 9.10 L/S SVC_PRED (L) : 3.77 L/S SVC_LLN (L) : 2.82 L/S SVC_ULN (L/S) : 4.73 L/S IC_PRED (L) : 2.51 L/S ERV_PREDICTED (L) : 1.26 L/S DLCO (ML/MIN/MMHG) : 11.86 ml/min/mmHg DLCO_PRED (ML/MIN/MMHG) : 22.66 ml/min/mmHg DLCO_LLN(ML/MIN/MMHG) : 17.74 ml/min/mmHg DLCO_ULN (ML/MIN/MMHG) : 28.56 ml/min/mmHg FET_PRE (S) : 14.42 S FET_POST (S) : 15.90 S VA (L) : 4.05 L VA_PRD (L) : 5.42 L DLCO/VA (ML/MIN/MMHG/L) : 0.03 ml/min/mmHg/L DLCO_VA_PRED (L) : 0.04 ml/min/mmHg/L DLCOCOR (ML/MIN/MMHG) : 11.65 ml/min/mmHg DLCOCOR_PRED (ML/MIN/MMHG) : 22.66 ml/min/mmHg DLCO/VACOR (ML/MIN/MMHG/L) : 0.03 ml/min/mmHg/L Normal [facility] CBC W Auto Differential pane l (Bld)on 06-11-2025 Basophils (Bld) [#/Vol] 0.09 10*3/uL Normal <0.11 [facility] Comment on above: Order Comment: Speci men Type: BLOOD SPECIMENOrdering Facility: [facility] Address: [address] [place] [address] Performed By: #### 5 7021-8 ####[facility] [id number] [place] [address] [place] Basophils/100 WBC (Bld) 1.6 % Normal [facility] Comment on above: Order Comment: Speci men Type: BLOOD SPECIMENOrdering Facility: [facility] Address: [address] [place] [address] Performed By: #### 5 7021-8 ####[facility] [id number] [place] [address] [place] Differential cell count method Nom (Bld) Auto Normal [facility] Comment on above: Order Comment: Speci men Type: BLOOD SPECIMENOrdering Facility: [facility] Address: [address] [place] [address] Performed By: #### 5 7021-8 ####[facility] [id number] [place] [address] [place] Eosinophils (Bld) [#/Vol] 0.12 10*3/uL Normal <0.46 [facility] Comment on above: Order Comment: Speci men Type: BLOOD SPECIMENOrdering Facility: [facility] Address: [address] [place] [address] Performed By: #### 5 7021-8 ####[facility] SERA [id number] [place] [address] [place] Eosinophils/100 WBC (Bld) 2.1 % Normal [facility] Comment on above: Order Comment: Speci men Type: BLOOD SPECIMENOrdering Facility: [facility] Address: [address] [place] [address] Performed By: #### 5 7021-8 ####[facility] FLORAANTLERNCLIPurnima [id number] [place] [address] [place] Erythrocyte distribution width (RBC) [Ratio] 15.4 % High 11.5-15.0 [facility] Comment on above: Order Comment: Speci men Type: BLOOD SPECIMENOrdering Facility: [facility] Address: [address] [place] [address] Performed By: #### 5 7021-8 ####[facility]PITALNCRIGOA [id number] [place] [address] [place] Hematocrit (Bld) [Volume fraction] 34.7 % Low 36.0-46.0 [facility] Comment on above: Order Comment: Speci men Type: BLOOD SPECIMENOrdering Facility: [facility] Address: [address] [place] [address] Performed By: #### 5 7021-8 ####[facility]ITALNCLIA [id number] [place] [address] [place] Hemoglobin (Bld) [Mass/Vol] 11.8 g/dL Normal 11.5-15.5 [facility] Comment on above: Order Comment: Speci men Type: BLOOD SPECIMENOrdering Facility: [facility] Address: [address] [place] [address] Performed By: #### 5 7021-8 ####[facility] MILLTOWNCLIA [id number] [place] [address] [place] Immature granulocytes (Bld) [#/Vol] 10*3/uL Normal <0.10 [facility] Comment on above: Order Comment: Speci men Type: BLOOD SPECIMENOrdering Facility: [facility] Address: [address] [place] [address] Performed By: #### 5 7021-8 ####[facility] HOSPITALWNCLIA [id number] [place] [address] [place] Immature granulocytes/100 WBC (Bld) 0.4 % Normal [facility] Comment on above: Order Comment: Speci men Type: BLOOD SPECIMENOrdering Facility: [facility] Address: [address] [place] [address] Performed By: #### 5 7021-8 ####[facility]PITALNCLIA [id number] [place] [address] [place] Lymphocytes (Bld) [#/Vol] 2.52 10*3/uL Normal 1.00-4.00 [facility] Comment on above: Order Comment: Speci men Type: BLOOD SPECIMENOrdering Facility: [facility] Address: [address] [place] [address] Performed By: #### 5 7021-8 ####[facility] HOSPITALWNCLIA [id number] [place] [address] [place] Lymphocytes/100 WBC (Bld) 44.9 % Normal [facility] Comment on above: Order Comment: Speci men Type: BLOOD SPECIMENOrdering Facility: [facility] Address: [address] [place] [address] Performed By: #### 5 7021-8 ####[facility]OSPITALNCLIA [id number] [place] [address] [place] MCH (RBC) [Entitic mass] 34.1 pg High 26.0-34.0 [facility] Comment on above: Order Comment: Speci men Type: BLOOD SPECIMENOrdering Facility: [facility] Address: [address] [place] [address] Performed By: #### 5 7021-8 ####[facility]PITALNCBRIGHAM [facility] [id number] [place] [address] [place] MCHC (RBC) [Mass/Vol] 34.0 g/dL Normal 30.5-36.0 [facility] Comment on above: Order Comment: Speci men Type: BLOOD SPECIMENOrdering Facility: [facility] Address: [address] [place] [address] Performed By: #### 5 7021-8 ####[facility]PITALNCBRIGHAM [facility] [id number] [place] [address] [place] MCV (RBC) [Entitic vol] 100.3 fL High 80.0-100.0 [facility] Comment on above: Order Comment: Speci men Type: BLOOD SPECIMENOrdering Facility: [facility] Address: [address] [place] [address] Performed By: #### 5 7021-8 ####[facility]ITALNCBRIGHAM [facility] [id number] [place] [address] [place] Monocytes (Bld) [#/Vol] 0.46 10*3/uL Normal <0.87 [facility] Comment on above: Order Comment: Speci men Type: BLOOD SPECIMENOrdering Facility: [facility] Address: [address] [place] [address] Performed By: #### 5 7021-8 ####[facility]ITALNCBRIGHAM [facility] [id number] [address] [place] Monocytes/100 WBC (Bld) 8.2 % Normal [facility] Comment on above: Order Comment: Speci men Type: BLOOD SPECIMENOrdering Facility: [facility] Address: [address] [place] [address] Performed By: #### 5 7021-8 ####[facility] [id number] [place] [address] [place] Neutrophils (Bld) [#/Vol] 2.40 10*3/uL Normal 1.45-7.50 [facility] Comment on above: Order Comment: Speci men Type: BLOOD SPECIMENOrdering Facility: [facility] Address: [address] [place] [address] Performed By: #### 5 7021-8 ####[facility] [id number] [place] [address] [place] Neutrophils/100 WBC (Bld) 42.8 % Normal [facility] Comment on above: Order Comment: Speci men Type: BLOOD SPECIMENOrdering Facility: [facility] Address: [address] [place] [address] Performed By: #### 5 7021-8 ####[facility] [id number] [place] [address] [place] Nucleated RBC (Bld) [#/Vol] 10*3/uL Normal <0.01 [facility] Comment on above: Order Comment: Speci men Type: BLOOD SPECIMENOrdering Facility: [facility] Address: [address] [place] [address] Performed By: #### 5 7021-8 ####[facility] HOSPITALLIA [id number] [place] [address] [place] Nucleated RBC/100 WBC (Bld) [Ratio] 0.0 /100 WBC Normal [facility] Comment on above: Order Comment: Speci men Type: BLOOD SPECIMENOrdering Facility: [facility] Address: [address] [place] [address] Performed By: #### 5 7021-8 ####[facility] KAVONLIA [id number] [place] [address] [place] Platelet mean volume (Bld) [Entitic vol] 9.9 fL Normal 9.0-12.7 [facility] Comment on above: Order Comment: Speci men Type: BLOOD SPECIMENOrdering Facility: [facility] Address: [address] [place] [address] Performed By: #### 5 7021-8 ####[facility] FLORAANTLERJARREDLIA [id number] [place] [address] [place] Platelets (Bld) [#/Vol] 218 10*3/uL Normal 150-400 [facility] Comment on above: Order Comment: Speci men Type: BLOOD SPECIMENOrdering Facility: [facility] Address: [address] [place] [address] Performed By: #### 5 7021-8 ####[facility]FI[facility] HOSPITALRIGOA [id number] [place] [address] [place] RBC (Bld) [#/Vol] 3.46 10*6/uL Low 3.90-5.20 [facility] Comment on above: Order Comment: Speci men Type: BLOOD SPECIMENOrdering Facility: [facility] Address: [address] [place] [address] Performed By: #### 5 7021-8 ####[facility]OSPITALJARREDLIA [id number] [place] [address] [place] WBC (Bld) [#/Vol] 5.61 10*3/uL Normal 3.70-11.00 [facility] Comment on above: Order Comment: Speci men Type: BLOOD SPECIMENOrdering Facility: [facility] Address: [address] [place] [address] Performed By: #### 5 7021-8 ####[facility]OSPITALJARREDLIA [id number] [place] [address] [place] Comprehensive metabolic 2000 panelon 06-11-2025 Albumin [Mass/Vol] 3.3 g/dL Low 3.9-4.9 [facility] Comment on above: Order Comment: Speci men Type: BLOOD SPECIMENOrdering Facility: [facility] Address: [address] [place] [address] Performed By: #### 2 4323-8 ####[facility] MILLWNCLIA [id number] [place] [address] [place] ALP [Catalytic activity/Vol] 81 U/L Normal 34-123 [facility] Comment on above: Order Comment: Speci men Type: BLOOD SPECIMENOrdering Facility: [facility] Address: [address] [place] [address] Performed By: #### 2 4323-8 ####[facility]PITALNCLIA [id number] [place] [address] [place] ALT [Catalytic activity/Vol] 22 U/L Normal 7-38 [facility] Comment on above: Order Comment: Speci men Type: BLOOD SPECIMENOrdering Facility: [facility] Address: [address] [place] [address] Performed By: #### 2 4323-8 ####[facility] HOSPITALLIA [id number] [place] [address] [place] Anion gap [Moles/Vol] 14 mmol/L Normal 8-15 [facility] Comment on above: Order Comment: Speci men Type: BLOOD SPECIMENOrdering Facility: [facility] Address: [address] [place] [address] Performed By: #### 2 4323-8 ####[facility] MILLTOWNCLIA [id number] [place] [address] [place] AST [Catalytic activity/Vol] Normal [facility] Comment on above: Order Comment: Speci men Type: BLOOD SPECIMENOrdering Facility: [facility] Address: [address] [place] [address] Result Comment: Unab le to assay. Specimen significantly hemolyzed. Performed By: #### 2 4323-8 ####[facility] FLORAUGO [id number] [place] [address] [place] Bilirubin [Mass/Vol] 0.5 mg/dL Normal 0.2-1.3 [facility] Comment on above: Order Comment: Speci men Type: BLOOD SPECIMENOrdering Facility: [facility] Address: [address] [place] [address] Performed By: #### 2 4323-8 ####[facility] HOSPITALPRATIK [id number] [place] [address] [place] Calcium [Mass/Vol] 8.4 mg/dL Low 8.5-10.2 [facility] Comment on above: Order Comment: Speci men Type: BLOOD SPECIMENOrdering Facility: [facility] Address: [address] [place] [address] Performed By: #### 2 4323-8 ####[facility]OSPITALPRATIK [id number] [place] [address] [place] Chloride [Moles/Vol] 100 mmol/L Normal 98-107 [facility] Comment on above: Order Comment: Speci men Type: BLOOD SPECIMENOrdering Facility: [facility] Address: [address] [place] [address] Performed By: #### 2 4323-8 ####[facility]PITALNCLIA [id number] [place] [address] [place] CO2 [Moles/Vol] 18 mmol/L Low 22-30 [facility] Comment on above: Order Comment: Speci men Type: BLOOD SPECIMENOrdering Facility: [facility] Address: [address] [place] [address] Performed By: #### 2 4323-8 ####[facility] FLORAWNCLIA [id number] [place] [address] [place] Creatinine [Mass/Vol] 0.45 mg/dL Low 0.58-0.96 [facility] Comment on above: Order Comment: Lizzy whitmore Type: BLOOD SPECIMENOrdering Facility: [facility] Address: [address] [place] [address] Performed By: #### 2 4323-8 ####[facility]ITALNCBRIGHAM [facility] [id number] [place] [address] [place] eGFRcr SerPlBld CKD-EPI 2020 119 mL/min/1.73m??? Normal >=60 [facility] Comment on above: Order Comment: Lizzy whitmore Type: BLOOD SPECIMENOrdering Facility: [facility] Address: [address] [place] [address] Result Comment: Yanira mated Glomerular Filtration Rate (eGFR) is calculated using the 2020 CKD-EPI creatinine equation. This equation utilizes serum creatinine, sex, and age as parameters. The creatinine assay has traceable calibration to isotope dilution-mass spectrometry. Refer to KDIGO guidelines for clinical interpretation. In patients with unstable renal function, e.g. those with acute kidney injury, the eGFR may not accurately reflect actual GFR. Performed By: #### 2 4323-8 ####[facility]OSPITALNCLIA [id number] [place] [address] [place] Glucose [Mass/Vol] 82 mg/dL Normal 74-99 [facility] Comment on above: Order Comment: Lizzy whitmore Type: BLOOD SPECIMENOrdering Facility: [facility] Address: [address] [place] [address] Result Comment: The [place] [employer] (ADA) provides guidance for cutoff values for fasting glucose and random glucose. The ADA defines fasting as no caloric intake for at least 8 hours. Fasting plasma glucose results between 100 to 125 mg/dL indicate increased risk for diabetes (prediabetes). Fasting plasma glucose results greater than or equal to 126 mg/dL meet the criteria for diagnosis of diabetes. In the absence of unequivocal hyperglycemia, results should be confirmed by repeat testing. In a patient with classic symptoms of hyperglycemia or hyperglycemic crisis, random plasma glucose results greater than or equal to 200 mg/dL meet the criteria for diagnosis of diabetes. Reference: Standards of Medical Care in Diabetes 2016, [place] [employer]. Diabetes Care. 2016.39(Suppl 1). Performed By: #### 2 4323-8 ####[facility] MILLWJARREDLIA [id number] [place] [address] [place] Potassium [Moles/Vol] 4.1 mmol/L Normal 3.7-5.1 [facility] Comment on above: Order Comment: Lizzy whitmore Type: BLOOD SPECIMENOrdering Facility: [facility] Address: [address] [place] [address] Performed By: #### 2 4323-8 ####[facility] HOSPITALJARREDLIPurnima [id number] [place] [address] [place] Protein [Mass/Vol] 6.9 g/dL Normal 6.3-8.0 [facility] Comment on above: Order Comment: Lizzy whitmore Type: BLOOD SPECIMENOrdering Facility: [facility] Address: [address] [place] [address] Performed By: #### 2 4323-8 ####[facility] HOSPITALLIA [id number] [place] [address] [place] Sodium [Moles/Vol] 132 mmol/L Low 136-144 [facility] Comment on above: Order Comment: Lizzy whitmore Type: BLOOD SPECIMENOrdering Facility: [facility] Address: [address] [place] [address] Performed By: #### 2 4323-8 ####[facility] HOSPITALLIA [id number] [place] [address] [place] Urea nitrogen [Mass/Vol] 3 mg/dL Low 7-21 [facility] Comment on above: Order Comment: Speci men Type: BLOOD SPECIMENOrdering Facility: [facility] Address: [facility] [place] [id number] Performed By: #### 2 4323-8 ####[facility] GENESIS ZAMORA [id number] [place] [address] [place] XR CHEST 2V FRONTAL/LATon XR CHEST 2V FRONTAL/LAT * * *Final Report* * * DATE OF EXAM: Jun 11 2025 3:50PM WRX [id number] - XR CHEST 2V FRONTAL/LAT / PROCEDURE REASON: Dyspnea on exertion * * * * Physician Interpretation * * * * EXAMINATION: CHEST RADIOGRAPH (2 VIEW FRONTAL and LATERAL) CLINICAL HISTORY: Dyspnea on exertion MQ: XC2_6 EXAM DATE/TIME: 06/11/2025 3:50 PM COMPARISON: No relevant prior studies available. RESULT: Lines, tubes, and devices: None. Lungs and pleura: Pulmonary infiltrates versus atelectasis demonstrated in the left lower lung. The right lung is clear. No mass lesion seen. No pleural effusions or pneumothorax. Cardiomediastinal silhouette: Stable cardiomediastinal silhouette. Bones and soft tissues: Unremarkable. IMPRESSION: Pulmonary infiltrates versus atelectasis in the left lower lung. Circuit Court Magistrate: RADHA Transcribe Date/Time: Jun 11 2025 4:56P Dictated by : HITESH CHAN MD This examination was interpreted and the report reviewed and electronically signed by: HITESH CHAN MD on Jun 11 2025 4:57PM EST [id number] Normal [facility] CNOVon 06-05-2025 CNOV Office Visit (INTMWS ) FRANCESCO SOTO ([id number]) 1975 F Date Time Provider Department 06/05/25 2:00 PM ERNESTINE POOLE During your visit today, we recorded the following information about you: Pulse Respiration Blood pressure Weight 74/minute 16/minute 142/88 67.6 kg Ernestine Poole APRN.CABLE SPLICER ASSISTANT 06/05/2025 3:16 PM Signed CC: Patient presents with: Recheck: B/L ears ringing HPI Francesco Soto is a 50 year old female who presents today for ringing in ears but with other concerns as well. Recording using [employer] software for draft documentation of the visit was discussed with the patient/authorized fundraising sale representative; all questions welcomed and answered. Patient/authorized fundraising sale representative agreed to proceed Tinnitus: - Bilateral continuous tinnitus x2 months, worsening. - No prior history of tinnitus. - Denies known trauma, loud noise exposure, or recent illness. - Reports feeling of ear pressure and decreased hearing. - No ear pain, sore throat, headaches, dizziness, or ear drainage. Dyspnea on Exertion: - Dyspnea on exertion x2 months, worsening. - Requires frequent stops to catch breath when walking short distances. - Has an Albuterol inhaler, used occasionally with some relief. - Denies chest pressure, palpitations, fever, chills, wheezing, cough, or edema. - Echocardiogram and spirometry performed in 2016. - Suspects having COPD, refers to it as smoker's cough. - current every day smoker Seasonal Allergies: - Chronic seasonal allergies with sneezing, worsened by cat hair exposure. - No current treatment for allergies. - Denies sinus pressure. Alcohol Use: - Previously consumed alcohol from morning until night. - Currently drinks approximately 4 beers per day, sometimes making a single can last until the next morning. REVIEW OF SYSTEMS See HPI PAST MEDICAL HISTORY Diagnosis Date Alcohol withdrawal (HCC) Bipolar 1 disorder (HCC) Complex ovarian cyst 01/02/2015 Depression Diarrhea, unspecified 05/2020 Essential hypertension Insomnia Nausea AND vomiting 05/20/2020 Polysubstance dependence (HCC) 06/01/2018 Syphilis 03/2024 PAST SURGICAL HISTORY Procedure Laterality Date CAUTERY CERVIX CRYOCAUTERY INITIAL/REPEAT COLONOSCOPY W/BIOPSY SINGLE/MULTIPLE 05/20/2020 Internal hemorrhoids, biopsies negative EGD TRANSORAL BIOPSY SINGLE/MULTIPLE 05/20/2020 Small hiatal hernia, Chronic gastritis, Mild-Moderate KNEE ARTHROSCOPY/SURGERY 1999, 2003,2004 2 on left AND 1 on right TONSILLECTOMY PRIMARY/SECONDARY Tonsillectomy TUBAL LIGATION HX ALLERGIES Diazepam, Dust, Penicillins, and Seasonal Allergies MEDICATIONS fluticasone (FLONASE) 50 mcg/actuation nasal spray Use 2 sprays in each nostril once daily. Rinse mouth after use. lurasidone (LATUDA) 20 mg tablet 20 mg. lurasidone (LATUDA) 40 mg tablet Take 80 mg by mouth once daily. gabapentin (NEURONTIN) 300 mg capsule Take 1 capsule by mouth daily at bedtime for 180 days. rizatriptan (MAXALT) 10 mg tablet Take 1 tablet by mouth, if no improvement after 2 hours you may repeat dose. Do not exceed 30mg in 24 hours. traZODone (DESYREL) 100 mg tablet Take 1 tablet by mouth at bedtime as needed. pantoprazole DR (PROTONIX) 40 mg tablet Take 1 tablet by mouth once daily. 30 minutes before meal propranolol (INDERAL) 40 mg tablet Take 1 tablet by mouth every 12 hours. sucralfate (CARAFATE) 1 gram tablet Take 1 tablet by mouth before meals and at bedtime. albuterol HFA (PROVENTIL HFA, VENTOLIN HFA) 90 mcg/actuation inhaler Inhale 2 Puffs as instructed every 4 hours as needed for wheezing/shortness of breath. fenofibrate nanocrystallized (TRICOR) 48 mg tablet Take 1 tablet by mouth once daily. thiamine (VITAMIN B1) 100 mg tablet Take 1 tablet by mouth once daily. FAMILY HISTORY Problem Relation Age of Onset Alcohol/Drug Mother other (vascular issues) Mother Heart Father of [place] at the age of 46 Diabetes Sister Cancer Maternal Grandmother lung Glaucoma Maternal Grandmother Heart Maternal Grandfather Diabetes Son Diabetes Paternal Aunt SOCIAL HISTORY[1] PHYSICAL EXAM BP 142/88 Pulse 74 Resp 16 Wt 67.6 kg (149 lb) LMP 04/17/2016 SpO2 98% BMI 23.66 kg/m? General Appearance: well appearing, in no acute distress, alert Eyes: conjunctiva pink and moist, no icterus, sclera white, non-injected Ears: external ears normal to inspection and palpation, canals clear, Left tympanic membrane normal. , Right tympanic membrane normal Nose/sinus: Nares normal. Septum midline. Mucosa normal. No drainage., No sinus tenderness Neck: Thyroid normal size and symmetric without palpable nodules, Neck supple, No adenopathy Oropharynx: nasal drainage noted to posterior pharynx Lymph nodes: No cervical lymphadenopathy and No supraclavicular lymphadenopathy Lungs: Lungs clear to auscultation. No wheezing, rho (more content not included)... Normal [facility] CNOVon 04-12-2025 CNOV Office Visit (OBGYWM ) FRANCESCO SOTO ([id number]) 1975 F Date Time Provider Department 04/12/25 1:40 PM FLOR LOZANO OBGYWM During your visit today, we recorded the following information about you: Blood pressure Weight 120/80 66 kg Flor Lozano MD 04/12/2025 3:07 PM Signed Upper Shaper offered: Patient declines. [place] is a 49 year old who presents today for a colposcopy. The patient's last pap smear was ASCUS with positive HPV from March 2025. Patient has a history of abnormal pap: Yes. The patient has had prior treatment: colpo. test: n/a UNIVERSAL PROTOCOL / SAFETY CHECKLIST Procedure to be Performed: Colposcopy with Possible Biopsy Sign In: A Moment of CARE was completed. Appropriate PPE (Personal Protective Equipment) worn by all providers involved with the procedure. Special equipment not required. Patient/Surrogate Stated/Verified: Patient name, Date of , Relevant allergies, and The intended procedure Time Out: Relevant labs, photos, and/or imaging studies have been reviewed. Intended patient and procedure match the source document(s) (e.g. consent, HANDP, associated studies [imaging, pathology]) match the intended patient and procedure. Consent obtained and matches the intended procedure. Yes. Correct side/site is not applicable. Medications required for this procedure are verified. Fire risk assessed and is not applicable. Implants: are not applicable. Sign Out: Specimens are all correctly labeled and sent. All instruments, equipment, possible retained foreign bodies are accounted for. Yes. The post-procedure plan of care has been communicated to the patient or surrogate. PROCEDURE: EXTERNAL GENITALIA: Normal in appearance without lesions VAGINA: Normal in appearance without lesions CERVIX: Speculum placed in vagina and excellent visualization of cervix achieved. Cervix swabbed x 3 with 3% acetic acid solution. Cervix grossly normal. Squamocolumnar junction visualized. No acetowhite changes, punctations, mosaicism or atypical vasculature noted. BIOPSY: Not done. ECC: done Procedure Summary: Patient tolerated procedure well and colposcopy was adequate. ASSESSMENT: HPV effect PLAN: Specimens labeled and sent to Pathology. MD Hayde Hicks [place], [place] 04/12/2025 1:27 PM Signed YOUR RECOVERY It may take a few weeks for your cervix to heal. While your cervix heals, you may have: - Vaginal bleeding (less than a normal menstrual period) - Mild cramping - A brown-black vaginal discharge (similar to coffee grounds) which is a result of the paste used to help stop bleeding from the procedure Do NOT put anything in the vagina for 1 week after your colposcopy if your doctor does a biopsy of your cervix. This includes sex, tampons, and douches. If you have any discomfort, you may take an over the counter pain medication (motrin, advil, ibuprofen, tylenol, etc). If this does not relieve your discomfort, contact your doctor's office for a prescription strength pain medication. It is okay to wear a sanitary pad until the discharge and spotting stops. RISKS Although problems seldom occur with colposcopy, there can be some complications. You may feel faint during and shortly after the procedure as well as have some bleeding and vaginal discharge after the procedure. There is also a risk of infection after the procedure. These complications are rare and can be easily treated. You should contact you doctor is you have any of the following: - Heavy bleeding (more than your normal period) - Bleeding with clots - Severe abdominal pain - Fever (more than 100.4F) - Foul smelling vaginal discharge RESULTS If a biopsy was taken, we will have the results of your biopsy in 1-2 weeks. If you do not hear the results of your biopsy after 2 weeks, please contact your physicians office for the results. Depending on the biopsy results, your doctor will determine your follow up plan which may include further testing or treatments. STAYING HEALTHY After the procedure, you will need to see your doctor for follow up visits during the year. At these visits your doctor will check the health of your cervix with a pap smear. After three normal pap smears, your doctor will allow you to return to having exams once a year. If you have another abnormal pap smear, you may need closer follow up for longer or you may need additional treatment. By making a few lifestyle changes after the procedure, you can help protect the health of your cervix: - Have regular pelvic exams and pap smears as ordered by your doctor. - Stop smoking as smoking increases your risk of developing a cancer of the cervix - If you have more than one sexual partner, limit your number of partners and use condoms to reduce your risks of STDs. If you have any additional que (more content not included)... Normal [facility] Pathology biopsy report Markie (Tiss)on 04-12-2025 AP DISCLAIMER Normal [facility] Comment on above: Order Comment: Speci men Type: TISSUE SPECIMENOrdering Facility: [facility] Address: [address] [place] [address] Result Comment: Karla dubon Developed Test (LDT) Disclaimer: Performance characteristics of immunohistochemical, immunofluorescent, and chromogenic in-situ hybridization tests have been determined by the performing laboratory within [facility] Pathology and Laboratory Medicine Department ([facility], [facility], [facility], [facility], [facility], [facility], or [facility]) in a manner consistent with CLIA requirements. One or more of these tests may not have been cleared or approved by the FDA. [facility] is regulated under CLIA as qualified to perform high-complexity testing. These tests are used for clinical purposes. These should not be regarded as investigational or for research. Positive and negative controls stain appropriately. Performed By: #### 6 6121-5 ####[facility] LABCLIA [id number] [place] [address] [place] CASE REPORT Normal [facility] Comment on above: Order Comment: Speci men Type: TISSUE SPECIMENOrdering Facility: [facility] Address: [address] [place] [address] Result Comment: Surg ical Pathology Report Case: [id number] Authorizing Provider: Flor Lozano MD Collected: 04/12/2025 01:55 PM Ordering Location: OB/Gynecology Received: 04/12/2025 04:32 PM Pathologist: Sahara Law MD Specimen: Endocervix, Curettings Performed By: #### 6 6121-5 ####[facility] LABCLIA [id number] [facility] [place] [address] [place] CLINICAL HISTORY ASCUS HPV Normal [facility] Comment on above: Order Comment: Speci men Type: TISSUE SPECIMENOrdering Facility: [facility] Address: [address] [place] [address] Performed By: #### 6 6121-5 ####[facility] LABCLIA [id number] [address] [place] [address] [place] [facility] DIAGNOSIS COMMENT Re-sampling may be warranted. Clinical correlation is recommended. Normal [facility] Comment on above: Order Comment: Speci men Type: TISSUE SPECIMENOrdering Facility: [facility] Address: [address] [place] [address] Performed By: #### 6 6121-5 ####[facility] LABCLIA [id number] [address] [place] [address] [facility] OF [facility] FINAL DIAGNOSIS Normal [facility] Comment on above: Order Comment: Speci men Type: TISSUE SPECIMENOrdering Facility: [facility] Address: [address] [place] [address] Result Comment: A. E ndocervix, curettage: - Tissue insufficient for diagnosis. See comment. - Very scant sampling of benign endocervix. - Specimen consists predominantly of benign squamous mucosa. at 1110 EDT Performed By: #### 6 6121-5 ####[facility] LABCLIA [id number] [facility] [place] [address] [place] [address] [facility] OF [place] FINAL PERFORMING LAB Normal [facility] Comment on above: Order Comment: Speci men Type: TISSUE SPECIMENOrdering Facility: [facility] Address: [address] [place] [address] Result Comment: Diag nostic interpretation performed at: [facility], [address] [place], [place] [address] [address] CLIA# [id number] Solution Developer: Dimitry Osborne MD Performed By: #### 6 6121-5 ####[facility] [id number] [address] OF [place] GROSS DESCRIPTION Normal [facility] Comment on above: Order Comment: Speci men Type: TISSUE SPECIMENOrdering Facility: [facility] Address: [address] [place] [address] Result Comment: A. E ndocervix, Curettings Received in formalin are multiple reardon-white, soft feathery segments of tissue aggregating to 0.3 x 0.2 x 0.1 cm. Totally submitted in one cassette. May not survive processing. Gross examination performed at [facility], [address] [place] [address] FF 04/13/2025 2:11 AM Performed By: #### 6 6121-5 ####[facility] [id number] [address] OF [facility] CNOVon 03-25-2025 CNOV Office Visit (OBGYWM ) FRANCESCO SOTO ([id number]) 1975 F Date Time Provider Department 03/25/25 1:00 PM BARBARA WEAVER OBNAPOLEONWRhina During your visit today, we recorded the following information about you: Blood pressure Weight Height 138/90 65.3 kg 1.69 m Barbara Weaver APRN.CNP 03/25/2025 1:17 PM Signed Upper Shaper offered: Patient declines. Francesco is a 49 year old who presents for an annual gynecologic exam without complaints. Menses: no menses - postmenopausal. HPV vaccine: No Last Pap: 03/2024 normal HPV: 03/2024 positive History of abnormal pap: Yes Last mammogram: 2019 normal Sexually active: Yes OB History Gravida4 Para0 Term0 Preterm0 AB1 Living3 SAB1 IAB0 Ectopic0 Multiple0 Live Births0 Clinical Partner History LMP: 04/17/2016, Postmenopausal Age at Menarche: Age at First : Age at Menopause: Clinical Partner History Comments: Sexual Activity: Not Currently; No partner data on record Contraception: No contraception data on record PAST MEDICAL HISTORY Diagnosis Date Alcohol withdrawal (HCC) Bipolar 1 disorder (HCC) Complex ovarian cyst 01/02/2015 Depression Diarrhea, unspecified 05/2020 Essential hypertension Insomnia Nausea AND vomiting 05/20/2020 Polysubstance dependence (HCC) 06/01/2018 PAST SURGICAL HISTORY Procedure Laterality Date CAUTERY CERVIX CRYOCAUTERY INITIAL/REPEAT COLONOSCOPY W/BIOPSY SINGLE/MULTIPLE 05/20/2020 Internal hemorrhoids, biopsies negative EGD TRANSORAL BIOPSY SINGLE/MULTIPLE 05/20/2020 Small hiatal hernia, Chronic gastritis, Mild-Moderate KNEE ARTHROSCOPY/SURGERY 1999, 2003,2004 2 on left AND 1 on right TONSILLECTOMY PRIMARY/SECONDARY Tonsillectomy TUBAL LIGATION HX FAMILY HISTORY Problem Relation Age of Onset Alcohol/Drug Mother other (vascular issues) Mother Heart Father of [place] at the age of 46 Diabetes Sister Cancer Maternal Grandmother lung Glaucoma Maternal Grandmother Heart Maternal Grandfather Diabetes Son Diabetes Paternal Aunt SOCIAL HISTORY Social History Tobacco Use Smoking status: Some Days Current packs/day: 0.50 Average packs/day: 0.5 packs/day for 21.0 years (10.5 ttl pk-yrs) Types: Cigarettes Passive exposure: Current Smokeless tobacco: Never Vaping Use Vaping status: Never Used Substance Use Topics Alcohol use: Yes Alcohol/week: 56.0 standard drinks of alcohol Types: 56 Cans of Beer (12oz) per week Comment: 3 beers per days Drug use: No REVIEW OF SYSTEMS Abdomen: No abdominal pain, nausea, vomiting, diarrhea, or constipation. No bloating, early satiety, indigestion, or increased flatulence. Bladder: No dysuria, gross hematuria, +urinary frequency, urinary urgency, +stress incontinence. Breast: No breast lumps, nipple d/c, overlying skin changes, redness or skin retraction. Allergies and current medication updated:Yes SENSITIVE EXAM: The sensitive examination was discussed with the Patient or Patient's Authorized Photo Journalist. As applicable, any other physician, advance practice provider, medical student, or other health professional student that will be observing or involved in the sensitive examination for educational or training purposes was discussed with the Patient or Authorized Photo Journalist. The Patient or Authorized Photo Journalist has agreed to proceed with the sensitive examination. (Sensitive examination includes inspection and/or palpation of the breasts, pelvis, prostate and anorectal regions). EXAM: BP 138/90 Ht 5' 6.535 (1.69m) Wt 144 lb (65.3kg) LMP 04/17/2016 BMI 22.87 kg/(m2). GENERAL: pleasant, female in no apparent distress HEENT: Normocephalic, atraumatic, mucus membranes moist, and no lesions DERMATOLOGY: Normal, without lesions, non-icteric, and non-hirsute BREAST: soft, non-tender, symmetric, no dominant mass, normal nipple-areolar complex, no lymphadenopathy, and no nipple discharge CHEST: Normal inspiratory effort ABDOMEN: soft, non-tender, and no masses PELVIC: external genitalia normal, normal Bartholin's glands, urethra, Alcalde's glands, no vulvar lesions, no cervical lesions, physiologic discharge present, normal appearing perineal body and perianal region BIMANUAL: uterus normal size, shape and consistency, no adnexal masses, and non-tender RECTOVAGINAL: deferred. NEURO: alert and oriented x3,exam grossly non-focal EXTREMITIES: normal ASSESSMENT/PLAN: 1) Health maintenance: Pap done with HPV. Mammogram ordered. Nutrition, exercise and routine health maintenance exams reviewed. Calcium/Vitamin D supplementation information provided. 2) Contraception: post menopausal. 3) STD screening: Declined STD check. 4) Follow up one year or sooner as needed Barbara Weaver APRN.CABLE SPLICER ASSISTANT Referring Provider: BARBARA WEAVER [[id number]] Allergies As of Date: 03/25/2025 Noted Allergy Reaction DIAZEPAM 01/31/2019 2 - Rash 4 - (more content not included)... Normal [facility] HIGH RISK HUMAN PAPILLOMA RAMIRO (HPV), PCR FOR DETECTION AND GENOTYPINGon 03-25-2025 HPV 16 Ag Ql (Unsp spec) Not detected Normal Not detected [facility] Comment on above: Order Comment: Speci men Type: FLUID SPECIMENOrdering Facility: [facility] Address: [address] [place] [address] Performed By: #### H PVHRT ####[facility] LABCLIA [id number] [place] [address] [place] HPV 18 Ag Ql (Unsp spec) Not detected Normal Not detected [facility] Comment on above: Order Comment: Speci men Type: FLUID SPECIMENOrdering Facility: [facility] Address: [address] [place] [address] Performed By: #### H PVHRT ####[facility] LABCLIA [id number] STATES OF [place] HPV 31+33+35+39+45+51+52 +56+58+59+66+68 DNA PILAR+probe Ql (Cvx) Detected Abnormal Not detected [facility] Comment on above: Order Comment: Speci men Type: FLUID SPECIMENOrdering Facility: [facility] Address: [address] [place] [address] Result Comment: High Risk HPV Other Type includes HPV types 31, 33, 35, 39, 45, 51, 52, 56, 58, 59, 66 and 68. Performed By: #### H PVHRT ####[facility] LABCLIA [id number] [place] [address] [place] PAP TESTon 03-25-2025 ADEQUACY Normal [facility] Comment on above: Order Comment: Speci men Type: FLUID SPECIMENOrdering Facility: [facility] Address: [address] [place] [address] Result Comment: Sati sfactory for interpretation. No endocervical component Performed By: #### L [id number] ####[facility] LABORATORYCLIA [id number] [place] [address] [place] [facility] LABCLIA [id number] [place] [address] [place] CASE REPORT Normal [facility] Comment on above: Order Comment: Speci men Type: FLUID SPECIMENOrdering Facility: [facility] Address: [address] [place] [address] Result Comment: Gyne cologic Cytology Report Case: [id number] Authorizing Provider: Barbara Weaver APRN.CABLE SPLICER ASSISTANT Collected: 03/25/2025 01:31 PM Ordering Location: OB/Gynecology Received: 03/25/2025 04:26 PM First Screen: Bisi Mcnally, CT, ASCP Pathologist: Hilton Eaton MD Specimen: Pap Test, ThinPrep, Cervix Performed By: #### L [id number] ####[facility] LABORATORYCLIA [id number] [address] LABCLIA [id number] [place] [address] [place] CLINICAL HISTORY, CYTOLOGY, FREEZER TUNNEL OPERATOR Positive Normal [facility] Comment on above: Order Comment: Speci men Type: FLUID SPECIMENOrdering Facility: [facility] Address: [address] [place] [address] Result Comment: Gabrielle clark Performed By: #### L [id number] ####[facility] LABORATORYCLIA [id number] [address] LABCLIA [id number] [place] [address] [place] CYTOLOGY PAP OTHER INTERPRETATION Predominance of coccobacilli consistent with shift in vaginal barbara. Normal [facility] Comment on above: Order Comment: Speci men Type: FLUID SPECIMENOrdering Facility: [facility] Address: [address] [place] [address] Performed By: #### L [id number] ####[facility] LABORATORYCLIA [id number] [address] LABCLIA [id number] [place] [id number] [place] FINAL PERFORMING LAB Normal [facility] Comment on above: Order Comment: Speci men Type: FLUID SPECIMENOrdering Facility: [facility] Address: [address] [place] [address] Result Comment: Tech nical component, publishing manager screening performed at: [facility], [address] [facility] [address] [place] [address] CLIA: [id number] Diagnostic interpretation performed at: [facility], [address] [facility] [address] CLIA# [id number] Solution Developer: Arjun Kilgore MD Performed By: #### L [id number] ####[facility]ATORYCLIA [id number] [address] STATES OF [facility] LABCLIA [id number] [place] [address] [place] INTERPRETATION, CYTOLOGY, FREEZER TUNNEL OPERATOR Abnormal [facility] Comment on above: Order Comment: Speci men Type: FLUID SPECIMENOrdering Facility: [facility] Address: [address] [place] [address] Result Comment: Atyp ical squamous cells of undetermined significance (ASC-US). at 1356 EDT Performed By: #### L [id number] ####[facility]ORATORYCLIA [id number] [address] STATES OF [facility] LABCLIA [id number] [place] [address] [place] PAP DISCLAIMER COMMENT The Pap Smear is a screening test for cervical cancer. False negative results occur with all screening tests, emphasizing the need for rescreening at recommended intervals, and clinical correlation. Normal [facility] Comment on above: Order Comment: Speci men Type: FLUID SPECIMENOrdering Facility: [facility] Address: [address] [place] [address] Performed By: #### L [id number] ####[facility]ORATORYCLIA [id number] [address] LABCLIA [id number] [place] [address] [place] PAP GENERAL CATEGORIZATION Epithelial Cell Abnormality Normal [facility] Comment on above: Order Comment: Lizzy whitmore Type: FLUID SPECIMENOrdering Facility: [facility] Address: [address] [place] [address] Performed By: #### L [id number] ####[facility] LABORATORYCLIA [id number] [address] LABCLIA [id number] [address] STATES OF [place] PAP CUTTER GRIND TOOL TECHNICIAN COMMENT This specimen has be en analyzed by the FDA-approved [employer] [place] System, which uses digital imaging and an enhanced artificial intelligence image analysis algorithm to identify hightower of interest on the microscopic slide, to assist the photographic spotter and pathologist in evaluating cells on ThinPrep Pap tests. Following analysis, hightower of interest on the microscopic slide selected by the algorithm are reviewed by a photographic spotter. If a sample requires hierarchical review, the pathologist will review the same hightower of interest selected by the algorithm prior to final interpretation. Normal [facility] Comment on above: Order Comment: Lizzy whitmore Type: FLUID SPECIMENOrdering Facility: [facility] Address: [address] [place] [address] Performed By: #### L [id number] ####[facility] LABORATORYCLIA [id number] [address] LABIA [id number] [address] OF [place] CNOVon 11-19-2024 CNOV Office Visit (INTMWS ) FRANCESCO [id number]) 1975 F Date Time Provider Department 11/19/24 12:00 PM NINOSKA NEWTON During your visit today, we recorded the following information about you: Pulse Respiration Blood pressure Weight 80/minute 16/minute 130/74 70.3 kg Ninoska Newton MD 11/19/2024 6:50 PM Signed Reason for Visit Patient presents with: Follow Up Francesco Soto is a 49 year old female who presents here today for Above Complaints. Health Maintenance Anxiety Screening Hepatitis B Vaccine(1 of 3 - 19+ 3-dose series) Hepatitis A Vaccine(1 of 2 - Risk 2-dose series) Pneumococcal Vaccine(2 of 2 - PCV) Mammogram Screening Colorectal Cancer Screening Covid-19 Vaccine( season) HPI 49-year-old -Sudanese with-history of alcohol abuse, cirrhosis from alcohol, ADHD, reflux disease, history of pancreatitis, hypertriglyceridemia, insomnia, hypertension, depression and complex family dynamics. She is here today for her to follow-up for her abdominal pain last visit. Last visit. Ordered lipase and amylase along with sending her for GI consult for abdominal pain. Amylase and lipase were normal but her AST is elevated. GI consult in the next 2 months. She notes to me today that she has not had this abdominal pain. Is being fired from her work because she missed time of when she had the pain. Is very stressed taking care of her mother who is an alcoholic and patient herself is trying to quit. As soon as she came out of her rehab last year her mother came home to live with her. Mother is is severe alcoholic and she relapsed after being clean for 45 days in the inpatient rehab. Currently she is drinking 2 beers. She possibly is drinking more than she is reporting. Lives on mother's Social Security till she gets her own social security disability. Has to take care of her mother who has dementia which is very stressful for her. Needs to get her Adderall as that helps her take care of her mother Today her main concern is nausea, going on since last Tuesday, she had to call off work. It started all of a sudden, she is having pain in the side of her stomach. She has a few episodes of vomiting, threw up almost every day, yellow bile, no blood. Has been on protonix, for gerd, she reports taking it. Reports taking medications for hypertension-propranol ol-blood pressure today is good Reflux disease: She is on pro tonics and medications running out. She also uses the Carafate. Together her abdominal symptoms are controlled. 11/19/24: Patient is here for follow up, notes she is weaning the beer, drinking only 1/2 beers a day. She was drinking 3 before. Her goal is to go to rehab, Get a GED, she is not working and her disability company is trying to get her disability. No problem-specific Assessment AND Plan notes found for this encounter. PAST MEDICAL HISTORY Diagnosis Date Alcohol withdrawal (HCC) Bipolar 1 disorder ([facility]) Complex ovarian cyst 01/02/2015 Depression Diarrhea, unspecified 05/2020 Essential hypertension Insomnia Nausea AND vomiting 05/20/2020 Polysubstance dependence ([facility]) 06/01/2018 PAST SURGICAL HISTORY Procedure Laterality Date CAUTERY CERVIX CRYOCAUTERY INITIAL/REPEAT COLONOSCOPY W/BIOPSY SINGLE/MULTIPLE 05/20/2020 Internal hemorrhoids, biopsies negative EGD TRANSORAL BIOPSY SINGLE/MULTIPLE 05/20/2020 Small hiatal hernia, Chronic gastritis, Mild-Moderate KNEE ARTHROSCOPY/SURGERY 1999, 2003,2004 2 on left AND 1 on right TONSILLECTOMY PRIMARY/SECONDARY Tonsillectomy TUBAL LIGATION HX FAMILY HISTORY Problem Relation Age of Onset Alcohol/Drug Mother other (vascular issues) Mother Heart Father of [place] at the age of 46 Diabetes Sister Cancer Maternal Grandmother lung Glaucoma Maternal Grandmother Heart Maternal Grandfather Diabetes Son Diabetes Paternal Aunt Social History Tobacco Use Smoking status: Some Days Current packs/day: 0.50 Average packs/day: 0.5 packs/day for 21.0 years (10.5 ttl pk-yrs) Types: Cigarettes Passive exposure: Current Smokeless tobacco: Never Vaping Use Vaping status: Never Used Substance Use Topics Alcohol use: Yes Alcohol/week: 56.0 standard drinks of alcohol Types: 56 Cans of Beer (12oz) per week Comment: 3 beers per days Drug use: No Past medical history, appointments, medications, allergies reviewed. Pertinent Lab/Diagnostic Studies are reviewed and discussed today Current Outpatient Medications: amphetamine-dextroamph etamine (ADDERALL) [address] (PROTONIX) 40 mg tablet gabapentin (NEURONTIN) 300 mg capsule propranolol (INDERAL) 40 mg tablet sucralfate (CARAFATE) 1 gram tablet albuterol HFA (PROVENTIL HFA, VENTOLIN HFA) 90 mcg/actuation inhaler traZODone (DESYREL) 100 mg tablet fenofibrate nanocrystallized (TRICOR) 48 mg tablet dara (more content not included)... [facility] (INTMWS) FRANCESCO SOTO ([id number]) 1975 F Date Time Provider Department 11/12/24 NINOSKA NEWTON INTMWS During your visit today, we recorded the following information about you: Aleida Bang 11/12/2024 1:49 PM Signed Last apt 07/13/2024 Patient has been identified by name and date of : Yes Last office visit in this department: 07/13/2024 RX INSTRUCTIONS: Patient aware RX will be sent to pharmacy. No need to notify patient. Patient phones requesting refills as follows: Requested Prescriptions No prescriptions requested or ordered in this encounter Please review and advise. Ernestine Tabares APRN.CNP 11/12/2024 4:09 PM Signed Pt needs to be seen. Can get refill at upcoming appointment. Thank you FABBY Reyna Rachel L, MA 11/13/2024 8:06 AM Signed Please contact patient to schedule follow up appointment with Ernestine or Dr. Newton. Francesca Hernandez MA [facility] 11/15/2024 9:49 AM Signed Patient has a visit scheduled next week on 11/19/2024Tuesday, asking for a few day supply until then? If so please advise patient and send to pharmacy Lucy Hurtado ? Ernestine Poole APRN.CNP 11/16/2024 7:10 AM Signed No she needs to be seen as this is a controlled substance. Thank you Ernestine Poole APRN.Isabel Harvey LPN 11/16/2024 9:23 AM Signed Called and spoke to patient, updated, voiced understanding. Isabel Webber LPN November 16, 2024 9:23 AM Allergies As of Date: 11/12/2024 Noted Allergy Reaction DIAZEPAM 01/31/2019 2 - Rash 4 - Hives DUST 12/13/2012 14 - Other: See Comments Comments: Sneezing and watery eyes PENICILLINS 12/05/2015 4 - Hives SEASONAL ALLERGIES 07/12/2014 9 - Itching Date Reviewed: 07/13/2024 Reviewed by: Isabel Webber LPN - Fully Assessed Reason for Visit: Patient Question [0077] Visit Diagnoses:Attention deficit hyperactivity disorder (ADHD), unspecified ADHD type [F90.9] Alcohol dependence in remission (HCC) [F10.21] Prescriptions as of 11/16/2024 - amphetamine-dextroamph etamine (ADDERALL) 15 mg tablet Take 1 tablet by mouth once daily for 30 days. - pantoprazole DR (PROTONIX) 40 mg tablet Take 1 tablet by mouth once daily. 30 minutes before meal - gabapentin (NEURONTIN) 300 mg capsule Take 1 capsule by mouth daily at bedtime for 180 days. - propranolol (INDERAL) 40 mg tablet Take 1 tablet by mouth every 12 hours. - sucralfate (CARAFATE) 1 gram tablet Take 1 tablet by mouth before meals and at bedtime. - albuterol HFA (PROVENTIL HFA, VENTOLIN HFA) 90 mcg/actuation inhaler Inhale 2 Puffs as instructed every 4 hours as needed for wheezing/shortness of breath. - traZODone (DESYREL) 100 mg tablet Take 1 tablet by mouth at bedtime as needed. - fenofibrate nanocrystallized (TRICOR) 48 mg tablet Take 1 tablet by mouth once daily. - thiamine (VITAMIN B1) 100 mg tablet Take 1 tablet by mouth once daily. - venlafaxine ER (EFFEXOR XR) 37.5 mg 24 hr capsule Take 1 capsule by mouth once daily. Meds Comments as of 12/23/2020: Pt states she is no longer taking medications. Only uses Metoprolol if chest hurts. Uses Neurontin if she feels she has Bipolar Mode Uses Celexa prn if she feels depressed. 12/23/20 - Patient informs the only medication she is currently taking is the Adderall. All other medications have been stopped Brit Bear RN Problem List As Of Date 11/12/2024 Noted Resolved Chest pain [R07.9] 07/12/2014 04/29/2016 Elevated blood sugar [R73.9] 07/12/2014 04/29/2016 MVP (mitral valve prolapse) [I34.1] 10/16/2014 10/05/2016 Depression [F32.A] 10/16/2014 Alcohol dependence (HCC) [F10.20] 10/16/2014 Migraines [G43.909] 10/16/2014 Abdominal pain [R10.9] 12/27/2014 09/17/2016 Insomnia [G47.00] 12/27/2014 Missed periods [N92.6] 04/01/2015 04/29/2016 Tobacco abuse disorder [Z72.0] 01/29/2016 Bipolar 1 disorder (HCC) [F31.9] 09/17/2016 H. pylori infection [A04.8] 12/06/2018 Alcoholic cirrhosis of liver without ascites (H*01/16/2021 Attention deficit hyperactivity disorder (ADHD)*01/16/2021 Alcohol intoxication (HCC) [F10.929] 05/30/2023 Diagnosed: 05/30/2023 Alcohol withdrawal syndrome (HCC) [F10.939] 10/23/2022 Diagnosed: 05/30/2023 Polysubstance dependence (HCC) [F19.20] 05/30/2023 Diagnosed: 05/30/2023 Encounter Status:Closed by ISABEL WEBBER on 11/16/[address] [facility] CNOVon 07-13-2024 CNOV Office Visit (INTMWS ) FRANCESCO SOTO ([id number]) 1975 F Date Time Provider Department 07/13/24 3:20 PM NINOSKA NEWTON During your visit today, we recorded the following information about you: Pulse Blood pressure Weight 84/minute 128/80 69.9 kg Ninoska Newton MD 07/13/2024 3:55 PM Signed Reason for Visit Patient presents with: Recheck: Stomach pain Francesco Soto is a 49 year old female who presents here today for Above Complaints. Health Maintenance Anxiety Screening Hepatitis B Vaccine(1 of 3 - 19+ 3-dose series) Hepatitis A Vaccine(1 of 2 - Risk 2-dose series) Pneumococcal Vaccine(2 of 2 - PCV) Mammogram Screening Colorectal Cancer Screening Covid-19 Vaccine( season) HPI 49-year-old -Sudanese with-history of alcohol abuse, cirrhosis from alcohol, ADHD, reflux disease, history of pancreatitis, hypertriglyceridemia, insomnia, hypertension, depression and complex family dynamics. She is here today for her to follow-up for her abdominal pain last visit. Last visit. Ordered lipase and amylase along with sending her for GI consult for abdominal pain. Amylase and lipase were normal but her AST is elevated. GI consult in the next 2 months. She notes to me today that she has not had this abdominal pain. Is being fired from her work because she missed time of when she had the pain. Is very stressed taking care of her mother who is an alcoholic and patient herself is trying to quit. As soon as she came out of her rehab last year her mother came home to live with her. Mother is is severe alcoholic and she relapsed after being clean for 45 days in the inpatient rehab. Currently she is drinking 2 beers. She possibly is drinking more than she is reporting. Lives on mother's Social Security till she gets her own social security disability. Has to take care of her mother who has dementia which is very stressful for her. Needs to get her Adderall as that helps her take care of her mother Today her main concern is nausea, going on since last Tuesday, she had to call off work. It started all of a sudden, she is having pain in the side of her stomach. She has a few episodes of vomiting, threw up almost every day, yellow bile, no blood. Has been on protonix, for gerd, she reports taking it. Reports taking medications for hypertension-propranol ol-blood pressure today is good Reflux disease: She is on pro tonics and medications running out. She also uses the Carafate. Together her abdominal symptoms are controlled. No problem-specific Assessment AND Plan notes found for this encounter. PAST MEDICAL HISTORY Diagnosis Date Alcohol withdrawal (HCC) Bipolar 1 disorder ([facility]) Complex ovarian cyst 01/02/2015 Depression Diarrhea, unspecified 05/2020 Essential hypertension Insomnia Nausea AND vomiting 05/20/2020 Polysubstance dependence ([facility]) 06/01/2018 PAST SURGICAL HISTORY Procedure Laterality Date CAUTERY CERVIX CRYOCAUTERY INITIAL/REPEAT COLONOSCOPY W/BIOPSY SINGLE/MULTIPLE 05/20/2020 Internal hemorrhoids, biopsies negative EGD TRANSORAL BIOPSY SINGLE/MULTIPLE 05/20/2020 Small hiatal hernia, Chronic gastritis, Mild-Moderate KNEE ARTHROSCOPY/SURGERY 1999, 2003,2004 2 on left AND 1 on right TONSILLECTOMY PRIMARY/SECONDARY Tonsillectomy TUBAL LIGATION HX FAMILY HISTORY Problem Relation Age of Onset Alcohol/Drug Mother other (vascular issues) Mother Heart Father of [place] at the age of 46 Diabetes Sister Cancer Maternal Grandmother lung Glaucoma Maternal Grandmother Heart Maternal Grandfather Diabetes Son Diabetes Paternal Aunt Social History Tobacco Use Smoking status: Some Days Current packs/day: 0.50 Average packs/day: 0.5 packs/day for 21.0 years (10.5 ttl pk-yrs) Types: Cigarettes Passive exposure: Current Smokeless tobacco: Never Vaping Use Vaping status: Never Used Substance Use Topics Alcohol use: Yes Alcohol/week: 56.0 standard drinks of alcohol Types: 56 Cans of Beer (12oz) per week Comment: 3 beers per days Drug use: No Past medical history, appointments, medications, allergies reviewed. Pertinent Lab/Diagnostic Studies are reviewed and discussed today Current Outpatient Medications: amphetamine-dextroamph etamine (ADDERALL) 15 mg tablet sucralfate (CARAFATE) 1 gram tablet albuterol HFA (PROVENTIL HFA, VENTOLIN HFA) 90 mcg/actuation inhaler traZODone (DESYREL) 100 mg tablet gabapentin (NEURONTIN) 300 mg capsule propranolol (INDERAL) [address] (PROTONIX) 40 mg tablet fenofibrate nanocrystallized (TRICOR) 48 mg tablet venlafaxine ER (EFFEXOR XR) 37.5 mg 24 hr capsule thiamine (VITAMIN B1) 100 mg tablet Review of Systems CONSTITUTIONAL: No fevers, chills night sweats, unintended weight loss CARDIOVASCULAR: No chest pain, dyspnea, palpitations, orthopnea, PND, ankle edema. (more content not included)... Normal [facility] CTA CHEST W CONTRASTon 05-01 CTA CHEST W CONTRAST EXAMINATION: CTA OF THE CHEST 04/30/2023 10:06 pm TECHNIQUE: CTA of the chest was performed after the administration of intravenous contrast. Multiplanar reformatted images are provided for review. MIP images are provided for review. Automated exposure control, iterative reconstruction, and/or weight based adjustment of the mA/kV was utilized to reduce the radiation dose to as low as reasonably achievable. COMPARISON: None. HISTORY: ORDERING SYSTEM PROVIDED HISTORY: chest pain, r/o PE TECHNOLOGIST PROVIDED HISTORY: Reason for exam:->chest pain, r/o PE Decision Support Exception - unselect if not a suspected or confirmed emergency medical condition->Emergency Medical Condition (MA) FINDINGS: Pulmonary Arteries: Pulmonary arteries are adequately opacified for evaluation. No evidence of intraluminal filling defect to suggest pulmonary embolism. Main pulmonary artery is normal in caliber. Mediastinum: No evidence of mediastinal lymphadenopathy. The heart and pericardium demonstrate no acute abnormality. There is no acute abnormality of the thoracic aorta. Lungs/pleura: The lungs are without acute process. There are signs of centrilobular emphysema more so near the lung apices. There are pneumatocele is a projecting over the left upper lung. No definite focal wall thickening is observed. There is minimal bibasilar ground-glass opacity that may represent dependent edema. No focal consolidation is noted. No evidence of pleural effusion or pneumothorax. Upper Abdomen: Limited images of the upper abdomen are unremarkable. Soft Tissues/Bones: No acute bone or soft tissue abnormality. IMPRESSION: 1. No evidence of pulmonary embolism or acute pulmonary abnormality. 2. Underlying signs of paraseptal and centrilobular emphysema. 3. There is minimal bibasilar ground-glass opacity that may represent dependent edema Interpreted by: Tam Schumacher MD Signed by: Tam Schumacher MD 04/30/23 Final result Normal [facility] Comment on above: Order Comment: Reaso n for exam:->chest pain, r/o PE Decision Support Exception - unselect if not a suspected or confirmed emergency medical condition->Emergency Medical Condition (MA) Basic Metabolic Profon 04-30 Anion gap [Moles/Vol] 11 mmol/L Normal 7-16 [facility] Comment on above: Performed By: #### B MP, CBCWD, DDIMER, TROPI #### [facility] [address] [place] [address] Bin Packer: Rom Stewart MD Calcium [Mass/Vol] 9.9 mg/dL Normal 8.6-10.2 [facility] Comment on above: Performed By: #### B CAROLYN, CBCWD, DDIMER, TROPI #### [address] [address] Bin Packer: Rom Stewart MD Chloride [Moles/Vol] 109 mmol/L High 98-107 [facility] Comment on above: Performed By: #### B CAROLYN, PRATIKWD, DDIMER, TROPI #### [address] [address] Bin Packer: Rom Stewart MD CO2 [Moles/Vol] 25 mmol/L Normal 22-29 [facility] Comment on above: Performed By: #### B CAROLYN, CBCWD, DDIMER, TROPI #### [address] [address] Bin Packer: Rom Stewart MD Creatinine [Mass/Vol] 0.5 mg/dL Normal 0.50-1.00 [facility] Comment on above: Performed By: #### B CAROLYN, CBCWD, DDIMER, TROPI #### [address] [address] Bin Packer: Rom Stewart MD GFR/1.73 sq M.predicted among non-blacks MDRD (S/P/Bld) [Vol rate/Area] mL/min/{1.73_m2} Normal >60 [facility] Comment on above: Result Comment: These results are not intended for use in patients <18 years of age. eGFR results are calculated without a race factor using the 2020 CKD-EPI equation. Careful clinical correlation is recommended, particularly when comparing to results calculated using previous equations. The CKD-EPI equation is less accurate in patients with extremes of muscle mass, extra-renal metabolism of creatine, excessive creatine ingestion, or following therapy that affects renal tubular secretion. Performed By: #### B CECE LEON, DDIMER, TROPI #### [address] [address] Bin Packer: Rom Stewart MD Glucose [Mass/Vol] 103 mg/dL High 74-99 [facility] Comment on above: Performed By: #### B CECE LEON, DDIMER, TROPI #### [address] [address] Bin Packer: Rom Stewart MD Potassium [Moles/Vol] 3.8 mmol/L Normal 3.5-5.0 [facility] Comment on above: Performed By: #### B CECE LEON, DDIMER, TROPI #### [address] [address] Bin Packer: Rom Stewart MD Sodium [Moles/Vol] 145 mmol/L Normal 132-146 [facility] Comment on above: Performed By: #### B CECE LEON, DDIMER, TROPI #### [address] [address] Bin Packer: Rmo Stewart MD Urea nitrogen [Mass/Vol] 5 mg/dL Low 6-20 [facility] Comment on above: Performed By: #### B CECE LEON, DDIMER, TROPI #### [address] [address] Bin Packer: Rom Stewart MD CBC with Diffon 04-30-2023 Abs. Basophil 0.10 k/uL Normal 0.00-0.20 [facility] Comment on above: Performed By: #### B MP, CBCWD, DDIMER, TROPI #### [address] [id number] Bin Packer: Rom Stewart MD Abs.Imm.Granulocyte 0.03 k/uL Normal 0.00-0.58 [facility] Comment on above: Performed By: #### B MP, CBCWD, DDIMER, TROPI #### [address] [address] Bin Packer: Rom Stewart MD Abs.Neutrophil (Seg) 4.47 k/uL Normal 1.80-7.30 [facility] Comment on above: Performed By: #### B MP, CBCWD, DDIMER, TROPI #### [address] [address] ( Bin Packer: Rom Stewart MD Basophils/100 WBC (Bld) 1 % Normal 0.0-2.0 [facility] Comment on above: Performed By: #### B MP, CBCWD, DDIMER, TROPI #### [address] [address] ( Bin Packer: Rom Stewart MD Eosinophils (Bld) [#/Vol] 0.36 10*3/uL Normal 0.05-0.50 [facility] Comment on above: Performed By: #### B MP, CBCWD, DDIMER, TROPI #### [address] [address] Bin Packer: Rom Stewart MD Eosinophils/100 WBC (Bld) 4 % Normal 0-6 [facility] Comment on above: Performed By: #### B MP, CBCWD, DDIMER, TROPI #### [address] [address] Bin Packer: Rom Stewart MD Erythrocyte distribution width (RBC) [Ratio] 13.7 % Normal 11.5-15.0 [facility] Comment on above: Performed By: #### B MP, CBCWD, DDIMER, TROPI #### [address] [address] Bin Packer: Rom Stewart MD Hematocrit (Bld) [Volume fraction] 36.7 % Normal 34.0-48.0 [facility] Comment on above: Performed By: #### B MP, CBCWD, DDIMER, TROPI #### [address] [id number] Bin Packer: Rom Stewart MD Hemoglobin (Bld) [Mass/Vol] 12.2 g/dL Normal 11.5-15.5 [facility] Comment on above: Performed By: #### B MP, CBCWD, DDIMER, TROPI #### [address] [address] Bin Packer: Rom Stewart MD Immature granulocytes/100 WBC (Bld) 0 % Normal 0.0-5.0 [facility] Comment on above: Performed By: #### B MP, CBCWD, DDIMER, TROPI #### [address] [address] Bin Packer: Rom Stewart MD Lymphocytes (Bld) [#/Vol] 3.05 10*3/uL Normal 1.50-4.00 [facility] Comment on above: Performed By: #### B MP, CBCWD, DDIMER, TROPI #### [address] [id number] Bin Packer: Rom Stewart MD Lymphocytes/100 WBC (Bld) 35 % Normal 20.0-42.0 [facility] Comment on above: Performed By: #### B MP, CBCWD, DDIMER, TROPI #### [address] [address] Bin Packer: Rom Stewart MD MCH (RBC) [Entitic mass] 33.0 pg Normal 26.0-35.0 [facility] Comment on above: Performed By: #### B MP, CBCWD, DDIMER, TROPI #### [address] [address] Bin Packer: Rom Stewart MD MCHC (RBC) [Mass/Vol] 33.2 g/dL Normal 32.0-34.5 [facility] Comment on above: Performed By: #### B MP, CBCWD, DDIMER, TROPI #### [address] [address] Bin Packer: Rom Stewart MD MCV (RBC) [Entitic vol] 99.2 fL Normal 80.0-99.9 [facility] Comment on above: Performed By: #### B MP, CBCWD, DDIMER, TROPI #### [address] [address] Bin Packer: Rom Stewart MD Monocytes (Bld) [#/Vol] 0.65 10*3/uL Normal 0.10-0.95 [facility] Comment on above: Performed By: #### B MP, CBCWD, DDIMER, TROPI #### [address] [address] Bin Packer: Rom Stewart MD Monocytes/100 WBC (Bld) 8 % Normal 2.0-12.0 [facility] Comment on above: Performed By: #### B MP, CBCWD, DDIMER, TROPI #### [address] [address] Bin Packer: Rom Stewart MD Neutrophil (Seg) 52 % Normal 43.0-80.0 [facility] Comment on above: Performed By: #### B MP, CBCWD, DDIMER, TROPI #### [facility] [address] [place] [address] Bin Packer: Rom Stewart MD Platelet mean volume (Bld) [Entitic vol] 10.0 fL Normal 7.0-12.0 [facility] Comment on above: Performed By: #### B MP, CBCWD, DDIMER, TROPI #### [address] [place] [address] Bin Packer: Rom Stewart MD Platelets (Bld) [#/Vol] 357 10*3/uL Normal 130-450 [facility] Comment on above: Performed By: #### B MP, CBCWD, DDIMER, TROPI #### [facility] [address] [place] [address] Bin Packer: oRm Stewart MD RBC (Bld) [#/Vol] 3.70 10*6/uL Normal 3.50-5.50 [facility] Comment on above: Performed By: #### B MP, CBCWD, DDIMER, TROPI #### [address] [place] [address] Bin Packer: Rom Stewart MD WBC (Bld) [#/Vol] 8.7 10*3/uL Normal 4.5-11.5 [facility] Comment on above: Performed By: #### B MP, CBCWD, DDIMER, TROPI #### [facility] [address] [place] [address] Bin Packer: Rom Stewart MD CT HEAD WO CONTRASTon 2022 CT HEAD WO CONTRAST EXAMINATION: CT OF THE HEAD WITHOUT CONTRAST 04/30/2023 8:43 pm TECHNIQUE: CT of the head was performed without the administration of intravenous contrast. Automated exposure control, iterative reconstruction, and/or weight based adjustment of the mA/kV was utilized to reduce the radiation dose to as low as reasonably achievable. COMPARISON: None. HISTORY: ORDERING SYSTEM PROVIDED HISTORY: hypertension with headache TECHNOLOGIST PROVIDED HISTORY: Reason for exam:->hypertension with headache Has a code stroke or stroke alert been called?->No Decision Support Exception - unselect if not a suspected or confirmed emergency medical condition->Emergency Medical Condition (MA) FINDINGS: BRAIN/VENTRICLES: There is no acute intracranial hemorrhage, mass effect or midline shift. No abnormal extra-axial fluid collection. The garcia-white differentiation is maintained without evidence of an acute infarct. There is no evidence of hydrocephalus. ORBITS: The visualized portion of the orbits demonstrate no acute abnormality. SINUSES: The visualized paranasal sinuses and mastoid air cells demonstrate no acute abnormality. SOFT TISSUES/SKULL: No acute abnormality of the visualized skull or soft tissues. IMPRESSION: No acute intracranial abnormality. Interpreted by: Lorri Camacho MD Signed by: Lorri Camacho MD 04/30/23 Final result Normal [facility] Comment on above: Order Comment: Reaso n for exam:->hypertension with headache Has a code stroke or stroke alert been called?->No Decision Support Exception - unselect if not a suspected or confirmed emergency medical condition->Emergency Medical Condition (MA) D-Dimer,Quantitativeon 04-30 D-dimer 318 ng/mL DDU High 0-232 [facility] Comment on above: Result Comment: D-DIMER Interpretation: <230 ng/mL (D-DU) Indicates low probability for PE/DVT 232 ng/mL (D-DU) Upper Limit of Normal >= 4000/ng/mL (D-DU) This level could suggest the presence of DIC. Clinical correlation may be helpful. Performed By: #### B CECE LEON, PETERSONIMER, TROPI #### [facility] [address], [place] [id number] Bin Packer: Rom Stewart MD Troponinon 04-30-2023 Troponin, High Sens 6 ng/L Normal 0-9 [facility] Comment on above: Result Comment: High Sensitivity Troponin values cannot be compared with other Troponin methodologies. Patients with high levels of Biotin oral intake (i.e >5mg/day) may have falsely decreased Troponin levels. Samples collected within 8 hours of biotin intake may require additional information for diagnosis. Performed By: #### B CECE LEON, DDIMER, TROPI #### [facility] [address], [place] [id number] Bin Packer: Rom Stewart MD Encounters Encounter Date Encounter Type Care Provider Facility Start: 07-05-2025 End: 07-05-2025 [facility] Facility:[facility] Start: 06-18-2025 End: 06-18-2025 ambulatory NINOSKA NEWTON Facility:[facility] Start: 06-11-2025 End: 06-11-2025 ambulatory ERNESTINE OLDER Facility:[facility] Start: 06-05-2025 End: 06-05-2025 ambulatory SELF Facility:[facility] Start: 04-12-2025 End: 04-12-2025 ambulatory FLOR LOZANO Facility:[facility] Start: 03-25-2025 End: 03-25-2025 ambulatory BARBARA WEAVER Facility:[facility] Start: 03-25-2025 Encounter for gyneco logical examination (general) (routine) without abnormal findings BARBARA KAPIL [facility] Start: 11-19-2024 End: 11-19-2024 ambulatory NINOSKA NEWTON Facility:[facility] Start: 07-13-2024 End: 07-13-2024 ambulatory [facility] Facility:[facility] Start: 04-30-2023 End: 05-01-2023 Emergency department patient visit MONCHO MANNING [facility] Procedures Date Procedure Procedure Detail Performing Clinician Start: 05-01-2023 VITAL SIGNS MONCHO REYES Start: 05-01-2023 Ct angiography chest w/contrast/noncontrast MONCHO MANNING Start: 04-30-2023 Basic metabolic pane l calcium total MONCHO MANNING Start: 04-30-2023 Ct head/brain w/o co ntrast material MONCHO MANNING Start: 04-30-2023 TELEMETRY MONITORING STAN MANNING Start: 04-30-2023 PERSONAL CARE AID - ED ONLY MONCHO MANNING Start: 04-30-2023 Ecg routine ecg w/le ast 12 lds w/i&r MONCHO MANNING Payers Date Payer Category Payer Medicaid [id number] Progress note 07-05-2025 Note Date & Type Note Facility 07-05-2025 Note HNO ID: [id number] Author: BRIA LEE MD Service: ? Author Type: Physician Type: Progress Notes Filed: 07/05/2025 14:12 Note Text: . Respiratory Hardy Note Patient name: Francesco Soto PCP: Ninoska Newton MD Referring Physician: Ernestine Poole CNP Consultation requested by Ernestine Poole CNP for an opinion regarding LAINEZ/COPD. My final recommendations will be communicated back to the requesting physician by way of shared Medical record or letter to requesting physician via [place] mail. CC: LAINEZ HPI: Francesco Soto 50 year old female smoker 40 pack years with PMH significant for syphillis, HTN, bipolar d/o, alcohol abuse with cirrhosis of the liver recently diagnosed with obstructive lung disease. DATA: PFT 06/18/2025: Labs: Eosinophils % % 2.1 1.2 1.5 Abs Eosin <0.46 k/uL 0.12 0.07 Imaging / Diagnostic Studies: DATE OF EXAM: Jun 11 2025 3:50PM [id number] [id number] - XR CHEST 2V FRONTAL/LAT / IMPRESSION: Pulmonary infiltrates versus atelectasis in the left lower lung. EXAMINATION: CTA OF THE CHEST 04/30/2023 10:06 pm [facility] Lungs/pleura: The lungs are without acute process. There are signs of centrilobular emphysema more so near the lung apices. There are pneumatocele is a projecting over the left upper lung. No definite focal wall thickening is observed. There is minimal bibasilar ground-glass opacity that may represent dependent edema. No focal consolidation is noted. No evidence of pleural effusion or pneumothorax. IMPRESSION: 1. No evidence of pulmonary embolism or acute pulmonary abnormality. 2. Underlying signs of paraseptal and centrilobular emphysema. 3. There is minimal bibasilar ground-glass opacity that may represent dependent edema PAST MEDICAL HISTORY Diagnosis Date Alcohol withdrawal (HCC) Alcoholic cirrhosis of liver (HCC) Bipolar 1 disorder (HCC) Complex ovarian cyst 01/02/2015 Depression Diarrhea, unspecified 05/2020 Essential hypertension Insomnia Nausea AND vomiting 05/20/2020 Syphilis 03/2024 ALLERGIES Allergen Reactions Diazepam Rash, Hives Dust Other: See Comments Sneezing and watery eyes Penicillins Hives Seasonal Allergies Itching fluticasone (FLONASE) 50 mcg/actuation nasal spray Use 2 sprays in each nostril once daily. Rinse mouth after use. lurasidone (LATUDA) 40 mg tablet Take 80 mg by mouth once daily. (Patient taking differently: Take 120 mg by mouth once daily. 120 mg daily) gabapentin (NEURONTIN) 300 mg capsule Take 1 capsule by mouth daily at bedtime for 180 days. rizatriptan (MAXALT) 10 mg tablet Take 1 tablet by mouth, if no improvement after 2 hours you may repeat dose. Do not exceed 30mg in 24 hours. traZODone (DESYREL) 100 mg tablet Take 1 tablet by mouth at bedtime as needed. pantoprazole DR (PROTONIX) 40 mg tablet Take 1 tablet by mouth once daily. 30 minutes before meal propranolol (INDERAL) 40 mg tablet Take 1 tablet by mouth every 12 hours. sucralfate (CARAFATE) 1 gram tablet Take 1 tablet by mouth before meals and at bedtime. albuterol HFA (PROVENTIL HFA, VENTOLIN HFA) 90 mcg/actuation inhaler Inhale 2 Puffs as instructed every 4 hours as needed for wheezing/shortness of breath. fenofibrate nanocrystallized (TRICOR) 48 mg tablet Take 1 tablet by mouth once daily. thiamine (VITAMIN B1) 100 mg tablet Take 1 tablet by mouth once daily. wrqpaciezn-zpwpyhux-rwosvkvyda (BREZTRI AEROSPHERE) 160-9-4.8 mcg/actuation HFA aerosol inhaler Inhale 2 puffs as instructed two times a day. lurasidone (LATUDA) 20 mg tablet 20 mg. (Patient not taking: Reported on 07/05/2025) SOCIAL HISTORY[1] Occupational dust exposure for approximately 1 year Pets: Cats FAMILY HISTORY Problem Relation Age of Onset Alcohol/Drug Mother other (vascular issues) Mother Heart Father of [place] at the age of 46 Diabetes Sister Cancer Maternal Grandmother lung Glaucoma Maternal Grandmother Heart Maternal Grandfather Asthma Daughter Diabetes Son Diabetes Paternal Aunt PAST SURGICAL HISTORY Procedure Laterality Date APPENDECTOMY CAUTERY CERVIX CRYOCAUTERY INITIAL/REPEAT COLONOSCOPY W/BIOPSY SINGLE/MULTIPLE 05/20/2020 Internal hemorrhoids, biopsies negative EGD TRANSORAL BIOPSY SINGLE/MULTIPLE 05/20/2020 Small hiatal hernia, Chronic gastritis, Mild-Moderate KNEE ARTHROSCOPY/SURGERY 1999, 2003,2004 2 on left AND 1 on right TONSILLECTOMY PRIMARY/SECONDARY Tonsillectomy TUBAL LIGATION HX PMH, Social history, family history and surgical history reviewed and updated in EMR REVIEW OF SYSTEMS: CONSTITUTIONAL: No fevers, chills, nightsweats, unintended weight loss HEENT: Positive rhinorrhea with postnasal drip CARDIOVASCULAR: No chest pain, palpitations, orthopnea, edema. PULM: See HPI GI: No dysphagia/odynophagia, problematic reflux, ascites NEURO: No balance problems, peripheral weakness/paresthesias or numbness of concern. PSY: Manic depression (more content not included)... [facility] Progress note 06-11-2025 Note Date & Type Note Facility 06-11-2025 Note HNO ID: [id number] Author: ALYSHA CORMIER RT(R) Service: ? Author Type: Technologist Type: Progress Notes Filed: 06/11/2025 16:25 Note Text: Radiology Service Progress Note PATIENT NAME: Francesco Soto DATE OF SERVICE: June 11, 2025 TIME: 4:25 PM PATIENT IDENTITY VERIFICATION COMPLETED USING TWO (2) IDENTIFIERS: Name and Date of confirmed by patient verbally. FALL SCREENING: Has the patient had 2 falls in the last year or 1 fall with injury or currently using an Ambulatory Assistive Device (Walker, Cane, Wheelchair, Crutches, etc.)? No PATIENT GENDER DATA: Assigned female at . status: : No status: NO. PATIENT RELEVANT IMPLANT DATA REVIEWED: Not Applicable PATIENT PRESENTS WITH AN IMPLANTABLE OR ATTACHED HOT SAW HELPER: No RADIOLOGY DEPARTMENT: General X-ray: Exam(s) Completed: Chest X-Ray PERIPHERAL IV DATA: Not applicable SIGNED BY: RT Raul(R) June 11, 2025 4:25 PM [facility] Progress note 06-05-2025 Note Date & Type Note Facility 06-05-2025 Note HNO ID: [id number] Author: ERNESTINE POOLE APRN.CABLE SPLICER ASSISTANT Service: ? Author Type: Nurse Practitioner Type: Progress Notes Filed: 06/05/2025 15:16 Note Text: CC: Patient presents with: Recheck: B/L ears ringing HPI Francesco Soto is a 50 year old female who presents today for ringing in ears but with other concerns as well. Recording using ambient [employer] software for draft documentation of the visit was discussed with the patient/authorized fundraising sale representative; all questions welcomed and answered. Patient/authorized fundraising sale representative agreed to proceed Tinnitus: - Bilateral continuous tinnitus x2 months, worsening. - No prior history of tinnitus. - Denies known trauma, loud noise exposure, or recent illness. - Reports feeling of ear pressure and decreased hearing. - No ear pain, sore throat, headaches, dizziness, or ear drainage. Dyspnea on Exertion: - Dyspnea on exertion x2 months, worsening. - Requires frequent stops to catch breath when walking short distances. - Has an Albuterol inhaler, used occasionally with some relief. - Denies chest pressure, palpitations, fever, chills, wheezing, cough, or edema. - Echocardiogram and spirometry performed in 2016. - Suspects having COPD, refers to it as smoker's cough. - current every day smoker Seasonal Allergies: - Chronic seasonal allergies with sneezing, worsened by cat hair exposure. - No current treatment for allergies. - Denies sinus pressure. Alcohol Use: - Previously consumed alcohol from morning until night. - Currently drinks approximately 4 beers per day, sometimes making a single can last until the next morning. REVIEW OF SYSTEMS See HPI PAST MEDICAL HISTORY Diagnosis Date Alcohol withdrawal (HCC) Bipolar 1 disorder (HCC) Complex ovarian cyst 01/02/2015 Depression Diarrhea, unspecified 05/2020 Essential hypertension Insomnia Nausea AND vomiting 05/20/2020 Polysubstance dependence (HCC) 06/01/2018 Syphilis 03/2024 PAST SURGICAL HISTORY Procedure Laterality Date CAUTERY CERVIX CRYOCAUTERY INITIAL/REPEAT COLONOSCOPY W/BIOPSY SINGLE/MULTIPLE 05/20/2020 Internal hemorrhoids, biopsies negative EGD TRANSORAL BIOPSY SINGLE/MULTIPLE 05/20/2020 Small hiatal hernia, Chronic gastritis, Mild-Moderate KNEE ARTHROSCOPY/SURGERY 1999, 2003,2004 2 on left AND 1 on right TONSILLECTOMY PRIMARY/SECONDARY Tonsillectomy TUBAL LIGATION HX ALLERGIES Diazepam, Dust, Penicillins, and Seasonal Allergies MEDICATIONS fluticasone (FLONASE) 50 mcg/actuation nasal spray Use 2 sprays in each nostril once daily. Rinse mouth after use. lurasidone (LATUDA) 20 mg tablet 20 mg. lurasidone (LATUDA) 40 mg tablet Take 80 mg by mouth once daily. gabapentin (NEURONTIN) 300 mg capsule Take 1 capsule by mouth daily at bedtime for 180 days. rizatriptan (MAXALT) 10 mg tablet Take 1 tablet by mouth, if no improvement after 2 hours you may repeat dose. Do not exceed 30mg in 24 hours. traZODone (DESYREL) 100 mg tablet Take 1 tablet by mouth at bedtime as needed. pantoprazole DR (PROTONIX) 40 mg tablet Take 1 tablet by mouth once daily. 30 minutes before meal propranolol (INDERAL) 40 mg tablet Take 1 tablet by mouth every 12 hours. sucralfate (CARAFATE) 1 gram tablet Take 1 tablet by mouth before meals and at bedtime. albuterol HFA (PROVENTIL HFA, VENTOLIN HFA) 90 mcg/actuation inhaler Inhale 2 Puffs as instructed every 4 hours as needed for wheezing/shortness of breath. fenofibrate nanocrystallized (TRICOR) 48 mg tablet Take 1 tablet by mouth once daily. thiamine (VITAMIN B1) 100 mg tablet Take 1 tablet by mouth once daily. FAMILY HISTORY Problem Relation Age of Onset Alcohol/Drug Mother other (vascular issues) Mother Heart Father of [place] at the age of 46 Diabetes Sister Cancer Maternal Grandmother lung Glaucoma Maternal Grandmother Heart Maternal Grandfather Diabetes Son Diabetes Paternal Aunt SOCIAL HISTORY[1] PHYSICAL EXAM BP 142/88 Pulse 74 Resp 16 Wt 67.6 kg (149 lb) LMP 04/17/2016 SpO2 98% BMI 23.66 kg/m? General Appearance: well appearing, in no acute distress, alert Eyes: conjunctiva pink and moist, no icterus, sclera white, non-injected Ears: external ears normal to inspection and palpation, canals clear, Left tympanic membrane normal. , Right tympanic membrane normal Nose/sinus: Nares normal. Septum midline. Mucosa normal. No drainage., No sinus tenderness Neck: Thyroid normal size and symmetric without palpable nodules, Neck supple, No adenopathy Oropharynx: nasal drainage noted to posterior pharynx Lymph nodes: No cervical lymphadenopathy and No supraclavicular lymphadenopathy Lungs: Lungs clear to auscultation. No wheezing, rhonchi, rales. Heart: RRR without murmur, gallop, or rubs. No ectopy Health maintenance reviewed with patient: Anxiety Screening Never done Hepatitis A Vaccine(1 of 2 - Risk 2-dose series) Never done Mammogram Screening due on 04/10/2021 Colorect (more content not included)... [facility] Progress note 04-12-2025 Note Date & Type Note Facility 04-12-2025 Note HNO ID: [id number] Author: FLOR LOZANO MD Service: ? Author Type: Physician Type: Progress Notes Filed: 04/12/2025 15:07 Note Text: Upper Shaper offered: Patient declines. Francesco is a 49 year old who presents today for a colposcopy. The patient's last pap smear was ASCUS with positive HPV from March 2025. Patient has a history of abnormal pap: Yes. The patient has had prior treatment: colpo. test: n/a UNIVERSAL PROTOCOL / SAFETY CHECKLIST Procedure to be Performed: Colposcopy with Possible Biopsy Sign In: A Moment of CARE was completed. Appropriate PPE (Personal Protective Equipment) worn by all providers involved with the procedure. Special equipment not required. Patient/Surrogate Stated/Verified: Patient name, Date of , Relevant allergies, and The intended procedure Time Out: Relevant labs, photos, and/or imaging studies have been reviewed. Intended patient and procedure match the source document(s) (e.g. consent, HANDP, associated studies [imaging, pathology]) match the intended patient and procedure. Consent obtained and matches the intended procedure. Yes. Correct side/site is not applicable. Medications required for this procedure are verified. Fire risk assessed and is not applicable. Implants: are not applicable. Sign Out: Specimens are all correctly labeled and sent. All instruments, equipment, possible retained foreign bodies are accounted for. Yes. The post-procedure plan of care has been communicated to the patient or surrogate. PROCEDURE: EXTERNAL GENITALIA: Normal in appearance without lesions VAGINA: Normal in appearance without lesions CERVIX: Speculum placed in vagina and excellent visualization of cervix achieved. Cervix swabbed x 3 with 3% acetic acid solution. Cervix grossly normal. Squamocolumnar junction visualized. No acetowhite changes, punctations, mosaicism or atypical vasculature noted. BIOPSY: Not done. ECC: done Procedure Summary: Patient tolerated procedure well and colposcopy was adequate. ASSESSMENT: HPV effect PLAN: Specimens labeled and sent to Pathology. Flor Lozano MD [facility] Progress note 03-25-2025 Note Date & Type Note Facility 03-25-2025 Note HNO ID: [id number] Author: BARBARA WEAVER APRN.CNP Service: ? Author Type: Nurse Practitioner Type: Progress Notes Filed: 03/25/2025 13:17 Note Text: Upper Shaper offered: Patient declines. Francesco is a 49 year old who presents for an annual gynecologic exam without complaints. Menses: no menses - postmenopausal. HPV vaccine: No Last Pap: 03/2024 normal HPV: 03/2024 positive History of abnormal pap: Yes Last mammogram: 2019 normal Sexually active: Yes OB History Gravida4 Para0 Term0 Preterm0 AB1 Living3 SAB1 IAB0 Ectopic0 Multiple0 Live Births0 Clinical Partner History LMP: 04/17/2016, Postmenopausal Age at Menarche: Age at First : Age at Menopause: Clinical Partner History Comments: Sexual Activity: Not Currently; No partner data on record Contraception: No contraception data on record PAST MEDICAL HISTORY Diagnosis Date Alcohol withdrawal (HCC) Bipolar 1 disorder (HCC) Complex ovarian cyst 01/02/2015 Depression Diarrhea, unspecified 05/2020 Essential hypertension Insomnia Nausea AND vomiting 05/20/2020 Polysubstance dependence (HCC) 06/01/2018 PAST SURGICAL HISTORY Procedure Laterality Date CAUTERY CERVIX CRYOCAUTERY INITIAL/REPEAT COLONOSCOPY W/BIOPSY SINGLE/MULTIPLE 05/20/2020 Internal hemorrhoids, biopsies negative EGD TRANSORAL BIOPSY SINGLE/MULTIPLE 05/20/2020 Small hiatal hernia, Chronic gastritis, Mild-Moderate KNEE ARTHROSCOPY/SURGERY 1999, 2003,2004 2 on left AND 1 on right TONSILLECTOMY PRIMARY/SECONDARY Tonsillectomy TUBAL LIGATION HX FAMILY HISTORY Problem Relation Age of Onset Alcohol/Drug Mother other (vascular issues) Mother Heart Father of [place] at the age of 46 Diabetes Sister Cancer Maternal Grandmother lung Glaucoma Maternal Grandmother Heart Maternal Grandfather Diabetes Son Diabetes Paternal Aunt SOCIAL HISTORY Social History Tobacco Use Smoking status: Some Days Current packs/day: 0.50 Average packs/day: 0.5 packs/day for 21.0 years (10.5 ttl pk-yrs) Types: Cigarettes Passive exposure: Current Smokeless tobacco: Never Vaping Use Vaping status: Never Used Substance Use Topics Alcohol use: Yes Alcohol/week: 56.0 standard drinks of alcohol Types: 56 Cans of Beer (12oz) per week Comment: 3 beers per days Drug use: No REVIEW OF SYSTEMS Abdomen: No abdominal pain, nausea, vomiting, diarrhea, or constipation. No bloating, early satiety, indigestion, or increased flatulence. Bladder: No dysuria, gross hematuria, +urinary frequency, urinary urgency, +stress incontinence. Breast: No breast lumps, nipple d/c, overlying skin changes, redness or skin retraction. Allergies and current medication updated:Yes SENSITIVE EXAM: The sensitive examination was discussed with the Patient or Patient's Authorized Photo Journalist. As applicable, any other physician, advance practice provider, medical student, or other health professional student that will be observing or involved in the sensitive examination for educational or training purposes was discussed with the Patient or Authorized Photo Journalist. The Patient or Authorized Photo Journalist has agreed to proceed with the sensitive examination. (Sensitive examination includes inspection and/or palpation of the breasts, pelvis, prostate and anorectal regions). EXAM: BP 138/90 Ht 5' 6.535 (1.69m) Wt 144 lb (65.3kg) LMP 04/17/2016 BMI 22.87 kg/(m2). GENERAL: pleasant, female in no apparent distress HEENT: Normocephalic, atraumatic, mucus membranes moist, and no lesions DERMATOLOGY: Normal, without lesions, non-icteric, and non-hirsute BREAST: soft, non-tender, symmetric, no dominant mass, normal nipple-areolar complex, no lymphadenopathy, and no nipple discharge CHEST: Normal inspiratory effort ABDOMEN: soft, non-tender, and no masses PELVIC: external genitalia normal, normal Bartholin's glands, urethra, Alcalde's glands, no vulvar lesions, no cervical lesions, physiologic discharge present, normal appearing perineal body and perianal region BIMANUAL: uterus normal size, shape and consistency, no adnexal masses, and non-tender RECTOVAGINAL: deferred. NEURO: alert and oriented x3,exam grossly non-focal EXTREMITIES: normal ASSESSMENT/PLAN: 1) Health maintenance: Pap done with HPV. Mammogram ordered. Nutrition, exercise and routine health maintenance exams reviewed. Calcium/Vitamin D supplementation information provided. 2) Contraception: post menopausal. 3) STD screening: Declined STD check. 4) Follow up one year or sooner as needed Barbara Weaver APRN.[facility] Clinical Note 02-26-2025 Note Date & Type Note Facility 02-26-2025 Note Patient Outreach (IN [facility]) FRANCESCO SOTO ([id number]) 1975 F Date Time Provider Department 02/26/25 NINOSKA NEWTON During your visit today, we recorded the following information about you: Allergies As of Date: 02/26/2025 Noted Allergy Reaction DIAZEPAM 01/31/2019 2 - Rash 4 - Hives DUST 12/13/2012 14 - Other: See Comments Comments: Sneezing and watery eyes PENICILLINS 12/05/2015 4 - Hives SEASONAL ALLERGIES 07/12/2014 9 - Itching Date Reviewed: 11/19/2024 Reviewed by: Francesca Hernandez MA - Fully Assessed Visit Diagnosis:Encounter for screening mammogram for breast cancer [Z12.31] Order(s):[facility] SCREENING W SANDI [[id number]] Order #: [id number] FUTURE Prescriptions as of 03/29/2025 - lurasidone (LATUDA) 20 mg tablet 20 mg. - lurasidone (LATUDA) 40 mg tablet Take 80 mg by mouth once daily. - gabapentin (NEURONTIN) 300 mg capsule Take 1 capsule by mouth daily at bedtime for 180 days. - rizatriptan (MAXALT) 10 mg tablet Take 1 tablet by mouth, if no improvement after 2 hours you may repeat dose. Do not exceed 30mg in 24 hours. - traZODone (DESYREL) 100 mg tablet Take 1 tablet by mouth at bedtime as needed. - pantoprazole DR (PROTONIX) 40 mg tablet Take 1 tablet by mouth once daily. 30 minutes before meal - propranolol (INDERAL) 40 mg tablet Take 1 tablet by mouth every 12 hours. - sucralfate (CARAFATE) 1 gram tablet Take 1 tablet by mouth before meals and at bedtime. - albuterol HFA (PROVENTIL HFA, VENTOLIN HFA) 90 mcg/actuation inhaler Inhale 2 Puffs as instructed every 4 hours as needed for wheezing/shortness of breath. - fenofibrate nanocrystallized (TRICOR) 48 mg tablet Take 1 tablet by mouth once daily. - thiamine (VITAMIN B1) 100 mg tablet Take 1 tablet by mouth once daily. Meds Comments as of 12/23/2020: Pt states she is no longer taking medications. Only uses Metoprolol if chest hurts. Uses Neurontin if she feels she has Bipolar Mode Uses Celexa prn if she feels depressed. 12/23/20 - Patient informs the only medication she is currently taking is the Adderall. All other medications have been stopped Brit Bear RN Problem List As Of Date 02/26/2025 Noted Resolved Chest pain [R07.9] 07/12/2014 04/29/2016 Elevated blood sugar [R73.9] 07/12/2014 04/29/2016 MVP (mitral valve prolapse) [I34.1] 10/16/2014 10/05/2016 Depression [F32.A] 10/16/2014 Alcohol dependence (HCC) [F10.20] 10/16/2014 Migraines [G43.909] 10/16/2014 Abdominal pain [R10.9] 12/27/2014 09/17/2016 Insomnia [G47.00] 12/27/2014 Missed periods [N92.6] 04/01/2015 04/29/2016 Tobacco abuse disorder [Z72.0] 01/29/2016 Bipolar 1 disorder (HCC) [F31.9] 09/17/2016 H. pylori infection [A04.8] 12/06/2018 Alcoholic cirrhosis of liver without ascites (H*01/16/2021 Attention deficit hyperactivity disorder (ADHD)*01/16/2021 Alcohol intoxication (HCC) [F10.929] 05/30/2023 Diagnosed: 05/30/2023 Alcohol withdrawal syndrome (HCC) [F10.939] 10/23/2022 Diagnosed: 05/30/2023 Polysubstance dependence (HCC) [F19.20] 05/30/2023 Diagnosed: 05/30/2023 Encounter Status:Closed by ABHI, PRODUSER on 03/29/25 [facility] Progress note 11-19-2024 Note Date & Type Note Facility 11-19-2024 Note HNO ID: [id number] Author: NINOSKA NEWTON MD Service: ? Author Type: Physician Type: Progress Notes Filed: 11/19/2024 18:50 Note Text: Reason for Visit Patient presents with: Follow Up Francesco Soto is a 49 year old female who presents here today for Above Complaints. Health Maintenance Anxiety Screening Hepatitis B Vaccine(1 of 3 - 19+ 3-dose series) Hepatitis A Vaccine(1 of 2 - Risk 2-dose series) Pneumococcal Vaccine(2 of 2 - PCV) Mammogram Screening Colorectal Cancer Screening Covid-19 Vaccine(2022- season) HPI 49-year-old -[place] with-history of alcohol abuse, cirrhosis from alcohol, ADHD, reflux disease, history of pancreatitis, hypertriglyceridemia, insomnia, hypertension, depression and complex family dynamics. She is here today for her to follow-up for her abdominal pain last visit. Last visit. Ordered lipase and amylase along with sending her for GI consult for abdominal pain. Amylase and lipase were normal but her AST is elevated. GI consult in the next 2 months. She notes to me today that she has not had this abdominal pain. Is being fired from her work because she missed time of when she had the pain. Is very stressed taking care of her mother who is an alcoholic and patient herself is trying to quit. As soon as she came out of her rehab last year her mother came home to live with her. Mother is is severe alcoholic and she relapsed after being clean for 45 days in the inpatient rehab. Currently she is drinking 2 beers. She possibly is drinking more than she is reporting. Lives on mother's Social Security till she gets her own social security disability. Has to take care of her mother who has dementia which is very stressful for her. Needs to get her Adderall as that helps her take care of her mother Today her main concern is nausea, going on since last Tuesday, she had to call off work. It started all of a sudden, she is having pain in the side of her stomach. She has a few episodes of vomiting, threw up almost every day, yellow bile, no blood. Has been on protonix, for gerd, she reports taking it. Reports taking medications for xpdjlagreeae-pjpiyhvwhhs-frlxh pressure today is good Reflux disease: She is on pro tonics and medications running out. She also uses the Carafate. Together her abdominal symptoms are controlled. 11/19/24: Patient is here for follow up, notes she is weaning the beer, drinking only 1/2 beers a day. She was drinking 3 before. Her goal is to go to rehab, Get a GED, she is not working and her disability company is trying to get her disability. No problem-specific Assessment AND Plan notes found for this encounter. PAST MEDICAL HISTORY Diagnosis Date Alcohol withdrawal (HCC) Bipolar 1 disorder (HCC) Complex ovarian cyst 01/02/2015 Depression Diarrhea, unspecified 05/2020 Essential hypertension Insomnia Nausea AND vomiting 05/20/2020 Polysubstance dependence (HCC) 06/01/2018 PAST SURGICAL HISTORY Procedure Laterality Date CAUTERY CERVIX CRYOCAUTERY INITIAL/REPEAT COLONOSCOPY W/BIOPSY SINGLE/MULTIPLE 05/20/2020 Internal hemorrhoids, biopsies negative EGD TRANSORAL BIOPSY SINGLE/MULTIPLE 05/20/2020 Small hiatal hernia, Chronic gastritis, Mild-Moderate KNEE ARTHROSCOPY/SURGERY 1999, 2003,2004 2 on left AND 1 on right TONSILLECTOMY PRIMARY/SECONDARY Tonsillectomy TUBAL LIGATION HX FAMILY HISTORY Problem Relation Age of Onset Alcohol/Drug Mother other (vascular issues) Mother Heart Father of [place] at the age of 46 Diabetes Sister Cancer Maternal Grandmother lung Glaucoma Maternal Grandmother Heart Maternal Grandfather Diabetes Son Diabetes Paternal Aunt Social History Tobacco Use Smoking status: Some Days Current packs/day: 0.50 Average packs/day: 0.5 packs/day for 21.0 years (10.5 ttl pk-yrs) Types: Cigarettes Passive exposure: Current Smokeless tobacco: Never Vaping Use Vaping status: Never Used Substance Use Topics Alcohol use: Yes Alcohol/week: 56.0 standard drinks of alcohol Types: 56 Cans of Beer (12oz) per week Comment: 3 beers per days Drug use: No Past medical history, appointments, medications, allergies reviewed. Pertinent Lab/Diagnostic Studies are reviewed and discussed today Current Outpatient Medications: amphetamine-dextroamphetamine (ADDERALL) [address] (PROTONIX) 40 mg tablet gabapentin (NEURONTIN) 300 mg capsule propranolol (INDERAL) 40 mg tablet sucralfate (CARAFATE) 1 gram tablet albuterol HFA (PROVENTIL HFA, VENTOLIN HFA) 90 mcg/actuation inhaler traZODone (DESYREL) 100 mg tablet fenofibrate nanocrystallized (TRICOR) 48 mg tablet thiamine (VITAMIN B1) 100 mg tablet venlafaxine ER (EFFEXOR XR) 37.5 mg 24 hr capsule Review of Systems CONSTITUTIONAL: No fevers, chills night sweats, unintended weight loss CARDIOVASCULAR: No chest pain, dyspnea, palpitations, orthopnea, PND, ankle edema. PU (more content not included)... [facility] Progress note 07-13-2024 Note Date & Type Note Facility 07-13-2024 Note HNO ID: [id number] Author: NINOSKA NEWTON MD Service: ? Author Type: Physician Type: Progress Notes Filed: 07/13/2024 15:55 Note Text: Reason for Visit Patient presents with: Recheck: Stomach pain Francesco Soto is a 49 year old female who presents here today for Above Complaints. Health Maintenance Anxiety Screening Hepatitis B Vaccine(1 of 3 - 19+ 3-dose series) Hepatitis A Vaccine(1 of 2 - Risk 2-dose series) Pneumococcal Vaccine(2 of 2 - PCV) Mammogram Screening Colorectal Cancer Screening Covid-19 Vaccine( season) HPI 49-year-old -Sudanese with-history of alcohol abuse, cirrhosis from alcohol, ADHD, reflux disease, history of pancreatitis, hypertriglyceridemia, insomnia, hypertension, depression and complex family dynamics. She is here today for her to follow-up for her abdominal pain last visit. Last visit. Ordered lipase and amylase along with sending her for GI consult for abdominal pain. Amylase and lipase were normal but her AST is elevated. GI consult in the next 2 months. She notes to me today that she has not had this abdominal pain. Is being fired from her work because she missed time of when she had the pain. Is very stressed taking care of her mother who is an alcoholic and patient herself is trying to quit. As soon as she came out of her rehab last year her mother came home to live with her. Mother is is severe alcoholic and she relapsed after being clean for 45 days in the inpatient rehab. Currently she is drinking 2 beers. She possibly is drinking more than she is reporting. Lives on mother's Social Security till she gets her own social security disability. Has to take care of her mother who has dementia which is very stressful for her. Needs to get her Adderall as that helps her take care of her mother Today her main concern is nausea, going on since last Tuesday, she had to call off work. It started all of a sudden, she is having pain in the side of her stomach. She has a few episodes of vomiting, threw up almost every day, yellow bile, no blood. Has been on protonix, for gerd, she reports taking it. Reports taking medications for jpaxtboidyks-fxeearmoelf-vewed pressure today is good Reflux disease: She is on pro tonics and medications running out. She also uses the Carafate. Together her abdominal symptoms are controlled. No problem-specific Assessment AND Plan notes found for this encounter. PAST MEDICAL HISTORY Diagnosis Date Alcohol withdrawal ([facility]) Bipolar 1 disorder ([facility]) Complex ovarian cyst 01/02/2015 Depression Diarrhea, unspecified 05/2020 Essential hypertension Insomnia Nausea AND vomiting 05/20/2020 Polysubstance dependence ([facility]) 06/01/2018 PAST SURGICAL HISTORY Procedure Laterality Date CAUTERY CERVIX CRYOCAUTERY INITIAL/REPEAT COLONOSCOPY W/BIOPSY SINGLE/MULTIPLE 05/20/2020 Internal hemorrhoids, biopsies negative EGD TRANSORAL BIOPSY SINGLE/MULTIPLE 05/20/2020 Small hiatal hernia, Chronic gastritis, Mild-Moderate KNEE ARTHROSCOPY/SURGERY 1999, 2003,2004 2 on left AND 1 on right TONSILLECTOMY PRIMARY/SECONDARY Tonsillectomy TUBAL LIGATION HX FAMILY HISTORY Problem Relation Age of Onset Alcohol/Drug Mother other (vascular issues) Mother Heart Father of [place] at the age of 46 Diabetes Sister Cancer Maternal Grandmother lung Glaucoma Maternal Grandmother Heart Maternal Grandfather Diabetes Son Diabetes Paternal Aunt Social History Tobacco Use Smoking status: Some Days Current packs/day: 0.50 Average packs/day: 0.5 packs/day for 21.0 years (10.5 ttl pk-yrs) Types: Cigarettes Passive exposure: Current Smokeless tobacco: Never Vaping Use Vaping status: Never Used Substance Use Topics Alcohol use: Yes Alcohol/week: 56.0 standard drinks of alcohol Types: 56 Cans of Beer (12oz) per week Comment: 3 beers per days Drug use: No Past medical history, appointments, medications, allergies reviewed. Pertinent Lab/Diagnostic Studies are reviewed and discussed today Current Outpatient Medications: amphetamine-dextroamphetamine (ADDERALL) 15 mg tablet sucralfate (CARAFATE) 1 gram tablet albuterol HFA (PROVENTIL HFA, VENTOLIN HFA) 90 mcg/actuation inhaler traZODone (DESYREL) 100 mg tablet gabapentin (NEURONTIN) 300 mg capsule propranolol (INDERAL) [address] (PROTONIX) 40 mg tablet fenofibrate nanocrystallized (TRICOR) 48 mg tablet venlafaxine ER (EFFEXOR XR) 37.5 mg 24 hr capsule thiamine (VITAMIN B1) 100 mg tablet Review of Systems CONSTITUTIONAL: No fevers, chills night sweats, unintended weight loss CARDIOVASCULAR: No chest pain, dyspnea, palpitations, orthopnea, PND, ankle edema. PULM: No dyspnea, unexplained cough. GI: No dysphagia/odynophagia, problematic reflux, constipation, diarrhea, changes in stool habits, hematochezia, melena. : No new urinary complaints, including dysuria, gross hematuria or pyuria. N (more content not included)... [facility] Summary Purpose Family History No Family History Records FoundNo Family History Records Found Advance Directives No Advanced Directives Records FoundNo Advanced Directives Records Found Additional Source Comments INFORMATION SOURCE (unrecogn ized section and content) DATE CREATED AUTHOR 05/01/2023 [facility] DATE CREATED AUTHOR AUTHOR'S ORGANIZ ATION 07/07/2025 [facility] FOR RECORDS PERTAINING TO PATIENTS WHO ARE OR HAVE BEEN ENROLLED IN A CHEMICAL DEPENDENCY/SUBSTANCEABUSE PROGRAM, SOME INFORMATION MAY BE OMITTED. This clinical summary was aggregated from multiple sources. Caution should be exercised in using it in the provision of clinical care. This summary normalizes information from multiple sources, and as a consequence, information in this document may materially change the coding, format and clinical context of patient data. In addition, data may be omitted in some cases. CLINICAL DECISIONS SHOULD BE BASED ON THE PRIMARY CLINICAL RECORDS. [employer] [facility]. provides no warranty or guarantee of the accuracy or completeness of information in this document.
== END 2025-07-07 15:35 | disposition left against medical advice (07) ==
LOC: ED 15:34
PROVIDERS: Emergency Provider Emergency Medicine; PCP Internal Medicine; Visit Provider Emergency Medicine
DX: Z53.21 Procedure and treatment not carried out due to patient leaving prior to being seen by health care provider (principal)
CPT/HCPCS: 99281